=== PATIENT | male | born 1945 | race Caucasian/White ===

== ENCOUNTER 2019-09-19 12:34 | Inpatient (IN) | payer MEDICARE, SELFPAY ==
[2019-09-19] VITALS (15 sets, daily range): BP systolic 103–128; BP diastolic 48–60; PULSE 81–100; RESP 12–21; TEMP 36.5–37.1; O2SAT 94–100; BMI 30.3
[2019-09-19 14:51] LABS: Basophils Percent Auto 0.3 % (0.2-1.2); Eosinophils Absolute Auto 0.1 K/mm3 (0-0.3); Eosinophils Percent Auto 1.2 % (0-4.4); Immature Granulocyte Absolute 0.09 K/mm3 (0.00-0.031); Immature Granulocyte Percent A 0.9 % (0-0.5); Immature Platelet Fraction Pct 2.5 % (0.9-11.2); Lymphocytes Absolute Auto 7.87 K/mm3 (0.9-3.2); Lymphocytes Percent Auto 75.5 % (18.3-44.2); Mean Corpuscular HGB Conc 30.3 g/dl (32-36); Mean Corpuscular Hemoglobin 29.9 pg (26-34); Mean Corpuscular Volume 98.5 fl (80-100); Mean Platelet Volume 10.6 fl (7.4-10.4); Monocytes Absolute Auto 0.5 K/mm3 (0.1-0.6); Monocytes Percent Auto 4.3 % (2.6-8.5); Neutrophils Absolute Auto 1.9 K/mm3 (1.3-6.7); Neutrophils Percent Auto 17.8 % (45.5-73.1); Nucleated Red Blood Cells Absolute Auto 0.1 K/mm3 (0.0-0.012); Nucleated Red Blood Cells Perc 0.6 % (0.0-0.2); Platelet Count Result 55 k/mm3 (150-375); Red Blood Count 2.04 M/mm3 (4.6-6.20); Red Cell Distribution Width 20.5 % (11.5-14.5); White Blood Count 10.4 K/mm3 (4.5-10.0)
[2019-09-19 15:01] LABS: Alanine Aminotransferase 18 U/L (4-50); Albumin Level 4.3 g/dL (3.5-5.1); Alkaline Phosphatase 108 U/L (38-126); Aspartate Amino Transferase 33 U/L (17-59); Bilirubin,Total 0.5 mg/dL (0.2-1.3); Blood Urea Nitrogen 34 mg/dL (9-20); Calcium 9.2 mg/dL (8.4-10.2); Carbon Dioxide 26 mmol/L (22-30); Chloride 96 mmol/L (98-107); Estimated CRCL calculation 46 ml/min; Estimated Glomerular Filt Rate 43; Glucose 87 mg/dL (75-110); Potassium 4.9 mmol/L (3.4-5.0); Prothrombin Time 13.2 Seconds (11.1-14.7); Sodium 136 mmol/L (137-145)
[2019-09-19 15:02] LABS: Partial Thromboplastin Time 23.2 SECONDS (22.3-36.8)
[2019-09-19 15:10] LABS: Hematocrit 20.1 % (42.0-52.0); Hemoglobin 6.1 g/dL (14.0-18.0)
--- NOTE | 2019-09-19 15:27 | ED.RECABL ---
HPI - Recheck/Abnormal Lab/Rx General Chief Complaint: Recheck/Abnormal Lab/Rx Stated Complaint: low blood count Time Seen by Provider: 09/19/19 15:18 Source: patient Mode of arrival: ambulatory Limitations: no limitations History of Present Illness HPI narrative: Pt is a 73 y/o male who presents to the ED, secondary to getting a call from his PCP about his low hemoglobin. Pt states that he saw Dr. Walls, his PCP on Tuesday (5 days ago) where he had an EKG done that was normal. He saw a certified nurses aide that did a doppler and was negative. Pt then had blood drawn yesterday. He has been complaining of SOB for the last 2 months that worsened with exertion. He also reports melena and constipation, but denies ABD pain. Pt states that he has been drinking a lot of milk and he has been eating and drinking normally. complaint: abnormal lab Initial visit (ago): day(s) (yesterday) Initial visit for: other (SOB) Returns today for: called because of abnormal lab/test Description of abnormal result: low hemoglobin Symptoms since prior visit: no new symptoms Context: called for abnormal lab result Associated symptoms: shortness of breath and other (melena, constipation) Related Data Home Medications Medication Instructions Recorded Confirmed allopurinol 300 mg tablet 300 mg PO DAILY 09/11/19 aspirin 81 mg tablet,delayed 81 mg PO DAILY 09/11/19 release indapamide 2.5 mg tablet 2.5 mg PO DAILY 09/11/19 levothyroxine 50 mcg tablet 50 mcg PO DAILY 09/11/19 venlafaxine 150 mg 150 mg PO DAILY 09/11/19 capsule,extended release 24 hr Allergies Allergy/AdvReac Type Severity Reaction Status Date / Time colistin [Coly-Mycin S] Allergy Unknown stated Verified 09/14/19 10:30 allergic hydrocortisone [Coly-Mycin S] Allergy Unknown stated Verified 09/14/19 10:30 allergic neomycin Allergy Unknown possible Verified 09/14/19 10:30 allergy, red eyes and eac edema thonzonium bromide Allergy Unknown stated Verified 09/14/19 10:30 [Coly-Mycin S] allergic Review of Systems Review of Systems: All systems reviewed & are unremarkable except as noted in HPI and below Respiratory: Respiratory: Reports dyspnea Gastrointestinal: Gastrointestinal: Denies abdominal pain, Reports melena and Reports constipation PMFSH Past Medical History Medical History (Updated 09/19/19 @ 18:18 by Leslie Bautista MD) Diabetes mellitus High cholesterol HTN (hypertension) Peripheral neuropathy Surgical History Surgical History (Updated 09/19/19 @ 15:33 by Elver Sr) No significant past surgical history Family History Family History (Updated 09/19/19 @ 18:12 by Margaret Noble RN) Sibling Diabetes mellitus Father Family history of cardiovascular disease Acute myocardial infarction Mother Alzheimer's dementia Social History Social History (Updated 09/19/19 @ 15:34 by Elver Sr) Smoking status: Former smoker Smoking end date: 07/18/96 Alcohol intake: current Exam Const: General: cooperative, no acute distress and alert Nutritional Appearance: well nourished Orientation/consciousness: patient oriented x3 Limitations: no limitations HENMT: Mouth: Yes lip normal and Yes moist mucous membranes Eyes: Conjunctivae: conjunctival abnormality bilateral pallor Pupils: Equal, round and reactive pupils present EOM: EOMs intact bilaterally Resp: Effort & Inspection: normal respiratory effort Auscultation: clear to auscultation bilaterally Cardio: Rate: regular rate Rhythm: regular rhythm Heart sounds: no murmurs Peripheral pulses: dorsalis pedis present bilateral GI: GI Palp: Yes Soft to palpation and No Tenderness to palpation present (GI) Auscultation: normal bowel sounds Skin: General skin exam: normal color and pallor Neuro: General: patient oriented x3 Cognition (Neuro): normal cognition Speech: normal speech Extrem: General: normal to inspection, full ROM and no clubbing,
[2019-09-19 16:16] LABS: Iron 135 ug/dL (49-181)
[2019-09-19 16:26] LABS: Percent Iron Saturation 33 % (20-50)
[2019-09-19] MEDS: TUBING, BLOOD PLUM PUMP TUBING 1 EACH XX (16:26)
[2019-09-19] MEDS: SODIUM CHLORIDE 0.9% IV 250 ML 30 ML IV CONT (16:26)
[2019-09-19 17:06] LABS: Folic Acid > 20.0 ng/mL (2.76->20)
--- NOTE | 2019-09-19 17:59 | ADMGEN ---
This patient, Francis Johnson, was admitted to [facility] Surg Room 333-01. Patient/family oriented to hospital policies and general routines including ID bracelet, bed and alarms, visiting hours, pain management, procedures, bathroom and other care routines, personal items, smoking policy, room service/diet, and visiting hours. Valuables list has been completed. Information on how to activate the Rapid Response Team has been discussed. Patient/Family are encouraged to report perceived risks to care and to ask questions if they do not understand what they are told or what they should do.
--- NOTE | 2019-09-20 00:48 | PM.IMHP ---
H&P: HPI History of Present Illness Chief complaint: Severe Anemia Narrative: Francis Johnson is a 73 year old male was been complaining of shortness breath for at least the last 2 months. His been seen by his primary care doctor and also Cardiology. He had had an echo and it was normal. He also had an EKG which was reported as normal as well. Patient went to his primary care doctor about 5 days ago and had some lab work performed. Patient stated that he has been having some dark stools and he has been drinking lots of milk. He does have a history of having GERD. He had a colonoscopy approximately a year ago. His GI doctor is Dr. Andrade. Patient's H&H was noted to be 6.1 and 20.1. Was typed and screened and given 2 units packed red blood cells. Patient is not on any blood thinners just an aspirin. He has been on a PPI for his GERD. Date of egalgdm98/04/20 Review of Systems Review of Systems: Narrative: The patient is urinating a small stream infrequently every 2 hours. He is having difficulty getting his stream started All systems reviewed & are unremarkable except as noted in HPI and below Constitutional: Constitutional: Reports as per HPI and Reports no additional constitutional complaints Eyes: Eyes: Reports as per HPI and Reports no additional eye complaints ENT: Reports system reviewed and no additional complaints, except as documented and Reports Normal hearing present Cardiovascular: Cardiovascular: Reports no additional cardiovascular complaints Respiratory: Respiratory: Reports no additional respiratory complaints and Reports no additional respiratory complaints Gastrointestinal: Gastrointestinal: Reports as per HPI and Reports no additional gastrointestinal complaints Musculoskeletal: Musculoskeletal: Reports no additional musculoskeletal complaints Integumentary/Breasts: Skin/Breast: Reports system reviewed and no additional complaints, except as docu and Reports as per HPI Neurologic: Reports system reviewed and no additional complaints, except as documented, Reports as per HPI and Reports Normal hearing present Psychiatric: Psychiatric: Reports no additional psychiatric complaints and Reports as per HPI Endocrine: Endocrine: Reports no additional endocrine complaints Hematologic/Lymphatic: Hematologic/Lymphatic: Reports no additional hematologic/lymphatic complaints Allergic/Immunologic: Allergic/Immunologic: Reports no additional allergic/immunologic complaints [facility] Past Medical History Medical History (Updated 09/20/19 @ 01:21 by Aleyda Verma NP) Depression with anxiety Diabetes mellitus High cholesterol HTN (hypertension) Peripheral neuropathy Testicular hypofunction Surgical History Surgical History (Updated 09/19/19 @ 15:33 by Elver Sr) No significant past surgical history Family History Family History Sibling Diabetes mellitus Father Family history of cardiovascular disease Acute myocardial infarction Mother Alzheimer's dementia Social History Social History (Updated 09/20/19 @ 00:56 by Aleyda Verma NP) Social History: The patient is single without any children. The patient retired from the [employer]. The patient's niece is a durable power assistant county attorney for healthcare. He desires to be full code at this time. No alcohol or illicit drugs Smoking packs per day: 2 Smoking cigarettes per day: 40.0 Years smoked: 30 Smoking pack-years: 60.00 Smoking status: Former smoker Tobacco type: cigarettes Smoking end date: 07/18/96 Alcohol intake: never Substance use: never Substance use type: does not use Living arrangements: alone Occupation/Education: retired Gender identity (if verbalized by the patient): Male Spiritual care concerns: No Agree to blood products: Yes Meds Home Medications and Allergies Home Medications Medication Instructions Recorded Confirmed Type simv
[2019-09-20 01:11] LABS: Hematocrit 22.3 % (42.0-52.0); Hemoglobin 7.1 g/dL (14.0-18.0)
[2019-09-20] MEDS: LEVOTHYROXINE SODIUM 50 MCG TABLET PO (05:54)
[2019-09-20 06:00] VITALS: BP 131/57; PULSE 83; RESP 18; TEMP 36.7; O2SAT 94
[2019-09-20 06:20] LABS: Hematocrit 23.7 % (42.0-52.0); Hemoglobin 7.4 g/dL (14.0-18.0)
[2019-09-20 06:35] LABS: Alanine Aminotransferase 17 U/L (4-50); Alkaline Phosphatase 91 U/L (38-126); Aspartate Amino Transferase 33 U/L (17-59); Bilirubin,Total 0.7 mg/dL (0.2-1.3); Blood Urea Nitrogen 28 mg/dL (9-20); Calcium 9.2 mg/dL (8.4-10.2); Carbon Dioxide 27 mmol/L (22-30); Chloride 100 mmol/L (98-107); Estimated CRCL calculation 59 ml/min; Estimated Glomerular Filt Rate 60; Glucose 92 mg/dL (75-110); Sodium 136 mmol/L (137-145)
[2019-09-20] MEDS: VENLAFAXINE HCL XR 75 MG CAP.ER.24H PO (08:27)
[2019-09-20] MEDS: PANTOPRAZOLE SOD SESQUIHYDRATE 20 MG TAB PO (08:27)
[2019-09-20] MEDS: allopurinoL 300 MG TABLET PO (08:27)
[2019-09-20] MEDS: SIMVASTATIN 20 MG TABLET PO (08:28)
[2019-09-20] MEDS: VENLAFAXINE HCL XR 75 MG CAP.ER.24H 150 MG PO (08:28)
[2019-09-20] MEDS: TAMSULOSIN HCL 0.4 MG CAPSULE PO (08:28)
--- NOTE | 2019-09-20 11:21 | WPDGICN ---
Assessment and Plan Additional Plan This is a 73-year-old white male patient I am asked to see because of anemia. Patient followed by Dr. Wlals in the clinical setting. Patient reports fatigue and weakness over the last 2 months. In retrospect he notices perhaps his stools were darkish for the last week. He denies any abdominal pain. No obvious signs of bleeding. He denies nose bleeds, bruises. No obvious blood in his urine or elsewhere. Past medical history is significant for GE reflux disease. In the past he has had an esophageal web dilated. He is chronically on proton pump inhibitor therapy. He very infrequently will notice heartburn. His bowel habits are normal. And considered regular. He reports no recent change in medications. Past medical history is significant for GERD. Hypertension. High cholesterol. Diabetes. Anxiety. Home medications include allopurinol, aspirin, indapamide, levothyroxine, metformin, omeprazole, quinapril, simvastatin, testosterone, venlafaxine, Allergies include: colistin, hydrocortisone, neomycin. Physical exam reveals patient to be alert. He is anicteric. Comfortable at rest. Vital signs stable. HEENT exam unremarkable. He is anicteric. Lungs are clear to auscultation and percussion. Heart is without murmur or extra sounds. Abdominal exam bowel sounds are present soft nontender with no hepatosplenomegaly. Digital external rectal exam normal. No stool is obtained. Laboratory testing reveals on presentation WBC 10.4, hemoglobin 6.1, hematocrit 21. . MCV 98. Platelet dear 55,000. Coagulation profile is normal. Iron 135, TIBC 410, 33% saturation, ferritin 168. LFTs are normal. Impression 1. Profound anemia. 2. Thrombocytopenia. 3. GERD. Appears stable on chronic PPI therapy. Etiology for anemia unclear. Dark stools raise a question of GI blood loss. Stool Hemoccult is pending. Patient has been maintained on PPI therapy. Chronically. No obvious GI bleeding reported. I suspect he may have hematologic problem given profound thrombocytopenia and normal iron studies. I will plan to proceed with colonoscopy an EGD in the a.m.. But additional lab work looking for hematologic process is advised. Stool Hemoccult will be requested if not already done. Patient to be transfused to a stable hemoglobin. GI Consult Note Consult date/time: 09/20/19 11:21 HPI: Francis Johnson is a 73 year old male [facility] Past Medical History Medical History (Updated 09/20/19 @ 01:21 by Aleyda Verma NP) Depression with anxiety Diabetes mellitus High cholesterol HTN (hypertension) Peripheral neuropathy Testicular hypofunction Surgical History Surgical History (Updated 09/19/19 @ 15:33 by Elver Sr) No significant past surgical history Family History Family History Sibling Diabetes mellitus Father Family history of cardiovascular disease Acute myocardial infarction Mother Alzheimer's dementia Social History Social History (Updated 09/20/19 @ 00:56 by Aleyda Verma NP) Social History: The patient is single without any children. The patient retired from the [employer]. The patient's niece is a durable power divorce attorney for healthcare. He desires to be full code at this time. No alcohol or illicit drugs Smoking packs per day: 2 Smoking cigarettes per day: 40.0 Years smoked: 30 Smoking pack-years: 60.00 Smoking status: Former smoker Tobacco type: cigarettes Smoking end date: 07/18/96 Alcohol intake: never Substance use: never Substance use type: does not use Living arrangements: alone Occupation/Education: retired Gender identity (if verbalized by the patient): Male Spiritual care concerns: No Agree to blood products: Yes Meds Home Medications and Allergies Home Medications Medication Instructions Recorded Confirmed Type simvastatin 20 mg tablet 20 mg PO DAILY #90 t
[2019-09-20 11:47] LABS: Hematocrit 25.1 % (42.0-52.0); Hemoglobin 8.1 g/dL (14.0-18.0); Mean Corpuscular HGB Conc 32.3 g/dl (32-36); Mean Corpuscular Hemoglobin 30.3 pg (26-34); Platelet Count Result 50 k/mm3 (150-375); Red Blood Count 2.67 M/mm3 (4.6-6.20); Red Cell Distribution Width 19.2 % (11.5-14.5); White Blood Count 9.9 K/mm3 (4.5-10.0)
[2019-09-20] MEDS: INSULIN ASPART (*BKC) 100 UNITS/ML SUB-Q (12:03)
[2019-09-20 12:09] LABS: Glucose Point of Care 205 (65-105)
[2019-09-20 13:43] LABS: IFOB Positive Control Positive; Immunochemical Fecal Occult Bl Negative (N)
[2019-09-20] MEDS: PEG (High)/E-LYTE SOLN 4,000 ML BTL 4000 ML PO (13:51)
--- NOTE | 2019-09-20 14:41 | PM.IMPN ---
Progress Note: A&P Assessment and Plan (1) Symptomatic anemia: Code(s): D64.9 - Anemia, unspecified Status: Acute Assessment and Plan: Patient had dark stools. Patient is on a PPI. He has seen Dr. Andrade in the past. He said he had a colonoscopy approximately 1 year ago clear. Patient had anemia profile and will check stools for occult blood. Patient received 2 units of packed red blood cells. Patient has been short of breath for at least 2 months. He recently had an echo now found to be negative as was his EKG was within normal limits. Patient stated that he is feeling much better. He was short of breath with exertion. Check H&H every 6 hours. Hold aspirin 09/20/19 14:41 Patient is 73-year-old male with no significant past medical history states he had a colonoscopy about a year ago and was normal, he has been feeling tired and fatigued for last couple of months and had noticed his stool was turning dark last week or 2, does have history of GERD which patient is taking PPI, patient presented emergency depart his hemoglobin was 6.1, denies any abdominal pain nausea or vomiting any raul bleeding, denies any bruising, he has no history of alcohol or smoking. Patient has stool Hemoccult is negative, patient is seen by GI recommending EGD and colonoscopy which is scheduled for tomorrow, (2) Urinary retention: Code(s): R33.9 - Retention of urine, unspecified Status: Acute Assessment and Plan: Urology consult. Start patient on Flomax. (3) Acute renal failure: Code(s): N17.9 - Acute kidney failure, unspecified Status: Acute Assessment and Plan: Hold metformin. Hold quinapril. Repeat BMP tomorrow (4) Essential (primary) hypertension: Code(s): I10 - Essential (primary) hypertension Status: Acute Assessment and Plan: Lisinopril on hold tonight due to acute renal failure. Also patient's blood pressure is on the soft side tonight anyway. (5) Hypothyroidism (acquired): Code(s): E03.9 - Hypothyroidism, unspecified Status: Acute Assessment and Plan: Continue with levothyroxine. Patient stated he just had his left levels checked. (6) Obstructive sleep apnea (adult) (pediatric): Code(s): G47.33 - Obstructive sleep apnea (adult) (pediatric) Status: Chronic Assessment and Plan: The patient has a dental apparatus that he did not bring with him. He has not used a CPAP machine years. (7) Type 2 diabetes mellitus with peripheral neuropathy: Code(s): E11.42 - Type 2 diabetes mellitus with diabetic polyneuropathy Status: Acute Assessment and Plan: Hold metformin due to the acute renal failure. Two Accu-Cheks AC and HS. The patient stated he he recently had A1c drawn within the last couple days. (8) Depression with anxiety: Code(s): F41.8 - Other specified anxiety disorders Status: Chronic Assessment and Plan: Continue with the venlafaxine (9) Thrombocytopenia: Code(s): D69.6 - Thrombocytopenia, unspecified Status: Acute Assessment and Plan: Patient platelet counts are 55,000 patient has no complaints of bruising however he is admitted for GI bleed will continue to monitor, patient will benefit from hematology consult as outpatient Subjective Date/time seen: 09/20/19 14:41 Patient is 73-year-old male with no significant past medical history states he had a colonoscopy about a year ago and was normal, he has been feeling tired and fatigued for last couple of months and had noticed his stool was turning dark last week or 2, does have history of GERD which patient is taking PPI, patient presented emergency depart his hemoglobin was 6.1, denies any abdominal pain nausea or vomiting any raul bleeding, denies any bruising, he has no history of alcohol or smoking. Patient has stool Hemoccult is negative, patient is seen by GI recommending EGD and colonoscopy which is scheduled fo
[2019-09-20 15:02] VITALS: BP 148/70; PULSE 86; RESP 18; TEMP 36.7; O2SAT 98
[2019-09-20 15:26] LABS: Immature Reticulocyte Fraction 26.1 % (3.0-15.9); Reticulocyte Hemoglobin Conten 33.4 pg (28.2-35.7); Reticulocyte Percent 1.86 % (0.7-4.3); Reticulocytes Absolute 0.05 B/L (32.2-175.7)
[2019-09-20 15:47] LABS: Bilirubin,Total 0.5 mg/dL (0.2-1.3); Lactate Dehydrogenase 694 U/L (313-618)
[2019-09-20 15:52] LABS: Transferrin 292 mg/dL (206-381)
[2019-09-20 16:41] LABS: Glucose Point of Care 89 (65-105)
--- NOTE | 2019-09-20 16:55 | WPDURCON ---
Assessment and Plan Assessment and plan (1) BPH loc w urin obs/LUTS: Code(s): N40.1 - Benign prostatic hyperplasia with lower urinary tract symptoms Status: Acute Assessment and Plan: Moderate obstructive and irritable voiding symptoms consistent with BPH. Bladder scan for postvoid residual volume of 200 cc is not an urgent problem but reports enough to warrant medications for BPH. Koul start Flomax and follow throughout the course of this admission. Urology Consult Note HPI Date Seen: 09/20/19 Requesting Physician: Ryan Garcia MD Primary Care Provider: Mckenzie Walls MD Consult Narrative Narrative: Francis Johnson is a 73 year old male admitted to the ER yesterday with shortness of breath and marked hematuria. During the course of admitting evaluation he reported a history of voiding difficulty, prompting urological consultation. Specifically, he reports urinary frequency urgency with nocturia 3-5 times per night in addition to obstructive symptoms of intermittent hesitancy diminished stream and sense of incomplete emptying. His primary care physician is told him he has prostatic enlargement in the past but to his knowledge the patient has not been started on any medicines for BPH. He denies a history of recurring urinary tract infection urolithiasis or hematuria. Review of Systems Cardiovascular: Cardiovascular: Denies chest pain, Denies lightheadedness, Denies palpitations and Denies dyspnea Respiratory: Respiratory: Denies dyspnea and Reports dyspnea on exertion Gastrointestinal: Gastrointestinal: Denies diarrhea, Denies nausea and Denies vomiting Genitourinary: Genitourinary: Denies hematuria, Denies dysuria, Reports urinary frequency, Reports urinary hesitancy and Reports urinary urgency Endocrine: Endocrine: Denies palpitations PMFSH Past Medical History Medical History Depression with anxiety Diabetes mellitus High cholesterol HTN (hypertension) Peripheral neuropathy Testicular hypofunction Surgical History Surgical History No significant past surgical history Family History Family History Sibling Diabetes mellitus Father Family history of cardiovascular disease Acute myocardial infarction Mother Alzheimer's dementia Social History Social History (Updated 09/20/19 @ 00:56 by Aleyda Verma NP) Social History: The patient is single without any children. The patient retired from the [employer]. The patient's niece is a durable power civil attorney for healthcare. He desires to be full code at this time. No alcohol or illicit drugs Smoking packs per day: 2 Smoking cigarettes per day: 40.0 Years smoked: 30 Smoking pack-years: 60.00 Smoking status: Former smoker Tobacco type: cigarettes Smoking end date: 07/18/96 Alcohol intake: never Substance use: never Substance use type: does not use Living arrangements: alone Occupation/Education: retired Gender identity (if verbalized by the patient): Male Spiritual care concerns: No Agree to blood products: Yes Meds Home Medications and Allergies Home Medications Medication Instructions Recorded Confirmed Type simvastatin 20 mg tablet 20 mg PO DAILY #90 tablet 05/29/19 09/19/19 Rx omeprazole 20 mg capsule,delayed 20 mg PO DAILY #90 cap 06/19/19 09/19/19 Rx release metformin 500 mg tablet,extended 1,000 mg PO BID #360 tablet 07/09/19 09/19/19 Rx release 24 hr venlafaxine 75 mg capsule,extended 75 mg PO DAILY #90 cap 07/20/19 09/19/19 Rx release 24 hr testosterone cypionate 200 mg/mL 200 mg IM .COMPLEX #1 ml 08/28/19 09/19/19 Rx intramuscular oil quinapril 20 mg tablet 20 mg PO DAILY #90 tablet 08/31/19 09/19/19 Rx allopurinol 300 mg tablet 300 mg PO DAILY 09/11/19 09/19/19 History aspirin 81 mg tablet,delayed 8
[2019-09-20 18:49] LABS: Hemoglobin 7.1 g/dL (14.0-18.0)
[2019-09-20 22:00] VITALS: BP 123/64; PULSE 91; RESP 16; TEMP 37.1; O2SAT 95
[2019-09-20 22:56] LABS: Glucose Point of Care 105 (65-105)
[2019-09-21] VITALS (7 sets, daily range): BP systolic 104–139; BP diastolic 52–74; PULSE 73–95; RESP 16–20; TEMP 36.1–36.9; O2SAT 97–98
[2019-09-21 01:22] LABS: Hematocrit 22.7 % (42.0-52.0); Hemoglobin 7.2 g/dL (14.0-18.0); Immature Platelet Fraction Pct 2.5 % (0.9-11.2); Mean Corpuscular HGB Conc 31.7 g/dl (32-36); Mean Corpuscular Hemoglobin 29.9 pg (26-34); Mean Corpuscular Volume 94.2 fl (80-100); Mean Platelet Volume 9.7 fl (7.4-10.4); Platelet Count Result 41 k/mm3 (150-375); Red Blood Count 2.41 M/mm3 (4.6-6.20); Red Cell Distribution Width 18.8 % (11.5-14.5); White Blood Count 6.3 K/mm3 (4.5-10.0)
[2019-09-21 06:27] LABS: Hematocrit 22.6 % (42.0-52.0); Hemoglobin 7.2 g/dL (14.0-18.0); Mean Corpuscular HGB Conc 31.9 g/dl (32-36); Mean Corpuscular Volume 94.2 fl (80-100); Mean Platelet Volume 12.4 fl (7.4-10.4); Platelet Count Result 42 k/mm3 (150-375); Red Cell Distribution Width 18.7 % (11.5-14.5); White Blood Count 6.6 K/mm3 (4.5-10.0)
[2019-09-21] MEDS: LEVOTHYROXINE SODIUM 50 MCG TABLET PO (06:38)
[2019-09-21 06:45] LABS: Blood Urea Nitrogen 17 mg/dL (9-20); Calcium 8.6 mg/dL (8.4-10.2); Carbon Dioxide 31 mmol/L (22-30); Chloride 96 mmol/L (98-107); Estimated CRCL calculation 65 ml/min; Estimated Glomerular Filt Rate > 60; Glucose 102 mg/dL (75-110); Potassium 3.6 mmol/L (3.4-5.0); Sodium 136 mmol/L (137-145)
--- NOTE | 2019-09-21 07:21 | WPDUROPN2 ---
Progress Note: A&P Assessment and Plan (1) BPH loc w urin obs/LUTS: Code(s): N40.1 - Benign prostatic hyperplasia with lower urinary tract symptoms Status: Acute Assessment and Plan: On Flomax for BPH - tolerating well. Should continue with planned f/u with us in 3-4 weeks. Creat. back to normal. Subjective Subjective Date/Time Seen: 09/21/19 07:21 No voiding complaints. Tolerated first dose of Flomax well. Review of Systems Cardiovascular: Cardiovascular: Denies chest pain, Denies lightheadedness, Denies palpitations and Denies dyspnea Respiratory: Respiratory: Denies dyspnea Gastrointestinal: Gastrointestinal: Denies diarrhea, Denies nausea and Denies vomiting Genitourinary: Genitourinary: Denies hematuria and Denies dysuria Endocrine: Endocrine: Denies palpitations Exam Const: General: no acute distress Resp: Effort & Inspection: normal respiratory effort GI: Inspection: non-distended GI Palp: No abdominal tenderness and No Guarding due to palpation present (GI) Auscultation: normal bowel sounds Objective Data Vital Signs Vital Signs: Vital Signs - 24 hr 09/20/19 15:02 09/20/19 22:00 Temperature 98.0 F 98.8 F Pulse Rate 86 91 Respiratory Rate 18 16 Blood Pressure 148/70 H 123/64 Pulse Oximetry 98 95 Intake/Output Intake/Output: Intake & Output 09/18/19 09/19/19 09/20/19 09/21/19 23:59 23:59 23:59 23:59 Intake Total 863 1820 Output Total 1200 Balance 863 620 Meds/Results Medications: Active Medications Generic Name Dose Route Start Last Admin Trade Name Freq PRN Reason Stop Dose Admin Allopurinol 300 mg 09/20/19 08:00 09/20/19 08:27 Zyloprim PO 300 mg DAILY@0800 ERYN Administration Dextrose 12.5 gm 09/20/19 00:46 Dextrose 50% Syringe IV PUSH PRN PRN Hypoglycemia Protocol Glucagon 1 mg 09/20/19 00:46 Glucagon For Inj IM PRN PRN Hypoglycemia Protocol Glucose 15 gm 09/20/19 00:46 Glutose 15 PO PRN PRN Hypoglycemia Protocol Dextrose 1,000 mls @ 100 mls/hr 09/20/19 00:46 Dextrose 5% 1,000 Ml IVPB PRN PRN Hypoglycemia Protocol Insulin Aspart 2 - 5 units 09/20/19 08:00 09/20/19 17:22 Novolog SUB-Q Not Given TIDWM [facility] Protocol Levothyroxine Sodium 50 mcg 09/20/19 06:30 09/21/19 06:38 Synthroid PO 50 mcg DAILY@0630 ERYN Administration Pantoprazole Sodium 20 mg 09/20/19 09:00 09/20/19 08:27 Protonix PO 10/20/19 09:01 20 mg DAILY ERYN Administration Simvastatin 20 mg 09/20/19 09:00 09/20/19 08:28 Zocor PO 20 mg DAILY ERYN Administration Tamsulosin HCl 0.4 mg 09/20/19 09:00 09/20/19 08:28 Flomax PO 0.4 mg QAM [facility] Administration Venlafaxine HCl 75 mg 09/20/19 08:00 09/20/19 08:27 Effexor Xr PO 75 mg DAILY@0800 [facility] Administration Venlafaxine HCl 150 mg 09/20/19 08:00 09/20/19 08:28 Effexor Xr PO 150 mg DAILY@0800 ERYN Administration Labs Labs: Laboratory Results - last 24 hr 09/20/19 09/20/19 09/20/19 08:26 11:34 12:02 WBC 9.9 RBC 2.67 L Hgb 8.1 L Hct 25.1 L MCV 94.0 MCH 30.3 MCHC 32.3 RDW 19.2 H Plt Count 50 L MPV 10.0 % Immature Plt Fraction Absolute Retic Percent Retic Immature Retic Fraction Retic Hgb Content Sodium Potassium Chloride Carbon Dioxide BUN Creatinine Estim Creat Clear Calc Estimated GFR Glucose POC Capillary Glucose 205 H Calcium Transferrin Total Bilirubin Direct Bilirubin Lactate Dehydrogenase Stl Occult Blood (IFOB) Negative Indirect Antiglob Test 09/20/19 09/20/19 09/20/19 15:16 15:16 15:16 WBC RBC Hgb Hct MCV MCH MCHC RDW Plt Count MPV % Immature Plt Fraction Absolute Retic 0.05 L Percent Retic 1.86 Immature Retic Fraction 26.1 H Retic Hgb Content 33.4 Sodium
--- NOTE | 2019-09-21 08:58 | WPDANESEPPF ---
Anes - Initial Pre Proc Eval Procedure: Operation Date: 09/21/19 10:00 Proposed Procedures p Esophagogastroduodenoscopy & Colonoscopy - Peter Andrade MD Date/Time: 09/21/19 08:58 Surgeon: Ryan Garcia MD Pre Op Diagnosis: Severe Anemia Patient Data Age: 73 Gender: M Height: 1.8 m Weight: 98.7 kg Last Vital Signs Temp 36.1 C L 09/21/19 06:00 Pulse 95 09/21/19 06:00 Resp 16 09/21/19 06:00 BP 104/74 09/21/19 06:00 Pulse Ox 98 09/21/19 06:00 Allergies Allergy/AdvReac Type Severity Reaction Status Date / Time colistin [Coly-Mycin S] Allergy Unknown stated Verified 09/14/19 10:30 allergic hydrocortisone [Coly-Mycin S] Allergy Unknown stated Verified 09/14/19 10:30 allergic neomycin Allergy Unknown possible Verified 09/14/19 10:30 allergy, red eyes and eac edema thonzonium bromide Allergy Unknown stated Verified 09/14/19 10:30 [Coly-Mycin S] allergic Home Medications Medication Instructions Recorded Confirmed Type simvastatin 20 mg tablet 20 mg PO DAILY #90 tablet 05/29/19 09/19/19 Rx omeprazole 20 mg capsule,delayed 20 mg PO DAILY #90 cap 06/19/19 09/19/19 Rx release metformin 500 mg tablet,extended 1,000 mg PO BID #360 tablet 07/09/19 09/19/19 Rx release 24 hr venlafaxine 75 mg capsule,extended 75 mg PO DAILY #90 cap 07/20/19 09/19/19 Rx release 24 hr testosterone cypionate 200 mg/mL 200 mg IM .COMPLEX #1 ml 08/28/19 09/19/19 Rx intramuscular oil quinapril 20 mg tablet 20 mg PO DAILY #90 tablet 08/31/19 09/19/19 Rx allopurinol 300 mg tablet 300 mg PO DAILY 09/11/19 09/19/19 History aspirin 81 mg tablet,delayed 81 mg PO DAILY 09/11/19 09/19/19 History release indapamide 2.5 mg tablet 2.5 mg PO DAILY 09/11/19 09/19/19 History levothyroxine 50 mcg tablet 50 mcg PO DAILY 09/11/19 09/19/19 History venlafaxine 150 mg 150 mg PO DAILY 09/11/19 09/19/19 History capsule,extended release 24 hr Laboratory Tests 09/20/19 09/20/19 09/20/19 08:26 11:34 12:02 WBC 9.9 K/mm3 K/mm3 (4.5-10.0) RBC 2.67 M/mm3 L M/mm3 (4.6-6.20) Hgb 8.1 g/dL L g/dL (14.0-18.0) Hct 25.1 % L % (42.0-52.0) MCV 94.0 fl fl (80-100) MCH 30.3 pg pg (26-34) MCHC 32.3 g/dl g/dl (32-36) RDW 19.2 % H % (11.5-14.5) Plt Count 50 k/mm3 L k/mm3 (150-375) MPV 10.0 fl fl (7.4-10.4) % Immature Plt Fraction Absolute Retic Percent Retic Immature Retic Fraction Retic Hgb Content Haptoglobin Sodium Potassium Chloride Carbon Dioxide BUN Creatinine Estim Creat Clear Calc Estimated GFR Glucose POC Capillary Glucose 205 mg/dl H mg/dl (65-105) Calcium Transferrin Total Bilirubin Direct Bilirubin Lactate Dehydrogenase Stl Occult Blood (IFOB) Negative (N) Indirect Antiglob Test 09/20/19 09/20/19 09/20/19 15:16 15:16 15:16 WBC RBC Hgb Hct MCV MCH MCHC RDW Plt Count MPV % Immature Plt Fraction Absolute Retic 0.05 B/L L B/L (32.2-175.7) Percent Retic 1.86 % % (0.7-4.3) Immature Retic Fraction 26.1 % H % (3.0-15.9) Retic Hgb Content 33.4 pg pg (28.2-35.7) Haptoglobin Pending Sodium Potassium Chloride Carbon Dioxide BUN Creatinine Estim Creat Clear Calc Estimated GFR Glucose POC Capillary Glucose Calcium Transferrin Total Bilirubin 0.5 mg
[2019-09-21] MEDS: LACTATED RINGERS 1,000 ML 150 ML IV CONT (09:19)
[2019-09-21] MEDS: BENZOCAINE (*SP) 60 ML SPRAY CAN (HURRICAINE) 1 SPRAY MUCOUS MEM (09:37)
[2019-09-21 11:13] LABS: Glucose Point of Care 89 (65-105)
[2019-09-21] MEDS: VENLAFAXINE HCL XR 75 MG CAP.ER.24H PO (11:14)
[2019-09-21] MEDS: TAMSULOSIN HCL 0.4 MG CAPSULE PO (11:15)
[2019-09-21] MEDS: allopurinoL 300 MG TABLET PO (11:15)
[2019-09-21] MEDS: VENLAFAXINE HCL XR 75 MG CAP.ER.24H 150 MG PO (11:15)
[2019-09-21] MEDS: SIMVASTATIN 20 MG TABLET PO (11:15)
[2019-09-21] MEDS: PANTOPRAZOLE SOD SESQUIHYDRATE 20 MG TAB PO (11:15)
--- NOTE | 2019-09-21 16:12 | WPDONCCN ---
Assessment and Plan Assessment and plan (1) Thrombocytopenia: Code(s): D69.6 - Thrombocytopenia, unspecified Status: Acute Assessment and Plan: Etiology ? need outpatient US of spleen Labs outpatient : ABDIAZIZ, HCV (2) Normocytic normochromic anemia: Code(s): D64.9 - Anemia, unspecified Status: Acute Assessment and Plan: Effectively ruled out hemolysis, CKD , and blood loss except the SB 1. He is asymptomatic and stable. Can be discharged to home 2. F/u with me in 1 week 3. I will arrange repeat CBC, HCV, ABDIAZIZ, SPEP, K/l chains, Ig levels next week prior to my visit 4. If all of the outpatient w/u is unrevealing, then I will proceed with BM BX 5. Pt voiced understanding and agree with recs HPI Data of Consult Date/Time: 09/21/19 16:12 Requesting Physician: Ryan Garcia MD Primary Care Provider: Mckenzie Walls MD Consult Narrative Narrative: Francis Johnson is a 73 year old male presents with progressive fatigue and QUINTANILLA x 2 - 4 weeks. He had a routine f/u visit with his PCP, Dr. Walls, and pt expressed these issues. W/u at Dr. Walls's office showed microscopic hematuria and low Hb - 6.1. He was instructed to go to [facility] and was admitted for new onset anemia and TCP. He was transfused with 2 units of PRBC immediately with improvement of his symptoms. Dr. Andrade was consulted for GI eval and Dr. Wang was consulted for hematuria Dr. Wang dx him with BPH and is being treated for this medically with Flomax. Dr. Andrade performed an EGD and Colonoscopy today showing no evidence of bleeding. He found diverticulosis, internal hemorrhoids and nothing else. W/u during this admission failed to reveal a source. The following labs: Ferritin, iron profile both normal, vitamin B12 and folate levels are normal, CMP shows no evidence of renal or hepatic disease. retic count is normal and JOHN is negative. LDH is elevated. No signs of hemolysis No B-type symptoms or GI issues preceding the admission. Review of Systems Review of Systems: All systems reviewed & are unremarkable except as noted in HPI and below Constitutional: Constitutional: Denies anorexia, Reports fatigue, Denies fever(s), Reports malaise, Reports night sweats, Reports snoring, Reports weakness and Denies weight loss Eyes: Eyes: Denies blurry vision ENT: Denies dysphagia, Denies epistaxis, Denies mouth lesions, Denies mouth pain, Denies odynophagia, Denies disequilibrium and Denies sore throat Cardiovascular: Cardiovascular: Denies chest pain, Denies leg edema and Denies dyspnea Respiratory: Respiratory: Denies cough and Reports dyspnea on exertion Gastrointestinal: Gastrointestinal: Denies abdominal pain, Denies constipation, Denies dysphagia, Denies diarrhea, Denies nausea, Denies odynophagia and Denies vomiting Genitourinary: Genitourinary: Denies hematuria and Denies dysuria Musculoskeletal: Musculoskeletal: Denies myalgias, Denies arthralgias and Denies muscle weakness Integumentary/Breasts: Skin/Breast: Denies rash and Denies unusual bruising Neurologic: Denies confusion, Denies disequilibrium and Denies weakness Psychiatric: Psychiatric: Denies anxiety, Denies confusion and Denies depression Endocrine: Endocrine: Reports fatigue Hematologic/Lymphatic: Hematologic/Lymphatic: Denies easy bleeding, Denies easy bruising and Denies lymphadenopathy [facility] Past Medical History Medical History (Updated 09/21/19 @ 16:22 by Saul Melvin DO) Acute renal failure Depression with anxiety Diabetes mellitus Diabetic neuropathy with neurologic complication Essential (primary) hypertension High cholesterol HTN (hypertension) Hypothyroidism (acquired) Idiopathic gout, unspecified site Major depressive disorder, recurrent, unspecified SHIRA (obstructive sleep apnea) Peripheral neuropathy Tachycardia 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
--- NOTE | 2019-09-21 16:23 | PM.DS ---
DS: Diagnosis Admitting Diagnosis Admitting Diagnosis: Anemia, unspecified Discharge Diagnosis (1) Symptomatic anemia: Code(s): D64.9 - Anemia, unspecified Status: Acute Assessment and Plan: Patient had dark stools. Patient is on a PPI. He has seen Dr. Andrade in the past. He said he had a colonoscopy approximately 1 year ago clear. Patient had anemia profile and will check stools for occult blood. Patient received 2 units of packed red blood cells. Patient has been short of breath for at least 2 months. He recently had an echo now found to be negative as was his EKG was within normal limits. Patient stated that he is feeling much better. He was short of breath with exertion. Check H&H every 6 hours. Hold aspirin 09/20/19 14:41 Patient is 73-year-old male with no significant past medical history states he had a colonoscopy about a year ago and was normal, he has been feeling tired and fatigued for last couple of months and had noticed his stool was turning dark last week or 2, does have history of GERD which patient is taking PPI, patient presented emergency depart his hemoglobin was 6.1, denies any abdominal pain nausea or vomiting any raul bleeding, denies any bruising, he has no history of alcohol or smoking. Patient has stool Hemoccult is negative, patient is seen by GI recommending EGD and colonoscopy which is scheduled for tomorrow, (2) Urinary retention: Code(s): R33.9 - Retention of urine, unspecified Status: Acute Assessment and Plan: Urology consult. Start patient on Flomax. (3) Acute renal failure: Code(s): N17.9 - Acute kidney failure, unspecified Status: Acute Assessment and Plan: Hold metformin. Hold quinapril. Repeat BMP tomorrow (4) Essential (primary) hypertension: Code(s): I10 - Essential (primary) hypertension Status: Acute Assessment and Plan: Lisinopril on hold tonight due to acute renal failure. Also patient's blood pressure is on the soft side tonight anyway. (5) Hypothyroidism (acquired): Code(s): E03.9 - Hypothyroidism, unspecified Status: Acute Assessment and Plan: Continue with levothyroxine. Patient stated he just had his left levels checked. (6) Obstructive sleep apnea (adult) (pediatric): Code(s): G47.33 - Obstructive sleep apnea (adult) (pediatric) Status: Chronic Assessment and Plan: The patient has a dental apparatus that he did not bring with him. He has not used a CPAP machine years. (7) Type 2 diabetes mellitus with peripheral neuropathy: Code(s): E11.42 - Type 2 diabetes mellitus with diabetic polyneuropathy Status: Acute Assessment and Plan: Hold metformin due to the acute renal failure. Two Accu-Cheks AC and HS. The patient stated he he recently had A1c drawn within the last couple days. (8) Depression with anxiety: Code(s): F41.8 - Other specified anxiety disorders Status: Chronic Assessment and Plan: Continue with the venlafaxine (9) Thrombocytopenia: Code(s): D69.6 - Thrombocytopenia, unspecified Status: Acute Assessment and Plan: Patient platelet counts are 55,000 patient has no complaints of bruising however he is admitted for GI bleed will continue to monitor, patient will benefit from hematology consult as outpatient DS: Summary Hospital Course Reason for hospitalization: Francis Johnson is a 73 year old male was been complaining of shortness breath for at least the last 2 months. His been seen by his primary care doctor and also Cardiology. He had had an echo and it was normal. He also had an EKG which was reported as normal as well. Patient went to his primary care doctor about 5 days ago and had some lab work performed. Patient stated that he has been having some dark stools and he has been drinking lots of milk. He does have a history of having GERD. He had a colonoscopy approximately a yea
[2019-09-24 19:57] LABS: Haptoglobin 201 mg/dL (43-212)
== END 2019-09-21 16:42 | disposition home or self-care (01) | DRG 812 ==
LOC: ANHED 15:54 → ANH3MEDSUR 17:15
PROVIDERS: Emergency Medicine; Internal Medicine Gastroenterology; Nurse Practitioner; Admitting Provider Internal Medicine; Emergency Provider Emergency Medicine; PCP Family Medicine; Visit Provider Family Medicine
PROC: 0DJ08ZZ Inspection of Upper Intestinal Tract, Via Natural or Artificial Opening Endoscopic (ICD-10-PCS; CPT 43235; principal; 2019-09-21 10:00)
DX: D64.9 Anemia, unspecified (principal); N17.9 Acute kidney failure, unspecified; F41.8 Other specified anxiety disorders; E78.00 Pure hypercholesterolemia, unspecified; K57.30 Diverticulosis of large intestine without perforation or abscess without bleeding; I10 Essential (primary) hypertension; E11.42 Type 2 diabetes mellitus with diabetic polyneuropathy; G47.33 Obstructive sleep apnea (adult) (pediatric); K21.9 Gastro-esophageal reflux disease without esophagitis; D69.6 Thrombocytopenia, unspecified; Z87.891 Personal history of nicotine dependence; R33.9 Retention of urine, unspecified; E03.9 Hypothyroidism, unspecified; N40.0 Benign prostatic hyperplasia without lower urinary tract symptoms; R35.0 Frequency of micturition; R35.1 Nocturia; R39.11 Hesitancy of micturition; N40.1 Benign prostatic hyperplasia with lower urinary tract symptoms; M10.00 Idiopathic gout, unspecified site; K64.8 Other hemorrhoids
CPT/HCPCS: 36415; 36430; 80048; 80053; 82247; 82248; 82274; 82607; 82728; 82746; 83010; 83540; 83550; 83615; 84466; 85014; 85018; 85025; 85027; 85046; 85055; 85610; 85730; 86850; 86900; 86901; 86923; 96360; 96361; 97161; 97165; 99285; A9270; G0378; J1815; J2704; J7050; J7120; P9016

== ENCOUNTER 2019-10-03 07:37 | Outpatient (CLI) | payer MEDICARE, SELFPAY ==
--- NOTE | ~2019-10-03 | US_ITS ---
EXAMINATION: US abdomen complete EXAM DATE: 10/03/2019 08:17 INDICATION: Thrombocytopenia, weakness. TECHNIQUE: Multiple grayscale and Doppler images of the complete abdomen were obtained (by a technolo gist who performed the scan) and subsequently reviewed. There is no prior study for comparison. FINDINGS: The abdominal aorta is normal in caliber. Visualized portion IVC is patent. The pancreatic head a nd body are normal in appearance. The pancreatic tail is not visualized. The liver has normal echogenicity and contour. There are no focal liver lesions identified. There is no evidence of intrahepatic biliary duct dilation. Portal venous flow was seen in the hepatopedal , normal direction and has normal Doppler waveform. Common bile duct measures 3 mm, which is normal. The gallbladder wall is normal in thickness, with ex pected amount of distention. No sonographic evidence of pericholecystic fluid. There is no cholelit hiases. Technologist performing exam reports patient did not demonstrate sonographic Tobar's sign. Please note that this sign is less reliable in patients who have received pain medication. Right kidney: There is normal contour and echogenicity. It measures 9.0 x 3.3 x 5.1 centimeters. T here are no focal renal lesions identified. There is no hydronephrosis. Left kidney: There is normal contour and echogenicity. It measures 12.7 x 5.5 x 6.9 centimeters. T here are no focal renal lesions identified. There is no hydronephrosis. The spleen is severely enlarged at 19 x 9 cm. IMPRESSION: 1. Severe splenomegaly. Reviewed, dictated and finalized at location A. IMPRESSION: 1. Severe splenomegaly.
== END 2019-10-03 07:38 ==
PROVIDERS: PCP Family Medicine; Visit Provider Internal Medicine Medical Oncology
DX: D69.6 Thrombocytopenia, unspecified (principal); R16.1 Splenomegaly, not elsewhere classified
CPT/HCPCS: 76700

== ENCOUNTER 2019-10-11 06:57 | Day surgery (SDC) | payer MEDICARE, SELFPAY ==
[2019-10-10 16:19] VITALS: BMI 31.4
--- NOTE | ~2019-10-11 | BM_ITS ---
EXAMINATION: CCL basic procedure DATE: 10/11/2019 09:06 INDICATION: Anemia and thrombocytopenia TECHNIQUE: A time-out was performed to verify the patient's name, date of , and procedure to b e performed. The procedure including the risks, benefits, and alternatives was discussed with the pat ient. Risks discussed included bleeding and infection. The patient understood the risks and agreed to proceed. The skin overlying the right posterior iliac spine was prepped and draped in usual sterile fashion. Anesthetic was administered with 1% lidocaine subcutaneously. Systemic analgesia was provide d with 50 mcg fentanyl IV. An 11 gauge needle was inserted into the ilium with fluoroscopic guidance. Attempt was made at bone marrow aspiration 3 different levels which produced minimal marrow consiste nt with dry tap. An 8 gauge needle was then inserted into the ilium with fluoroscopic guidance. A cor e bone marrow biopsy was obtained. There were no immediate complications. Fluoroscopy exposure time w as 0.1 minutes. The total number of images was 26. FINDINGS: Real-time fluoroscopy demonstrates a marker overlying the right posterior iliac spine. IMPRESSION: 1. Fluoro-guided bone marrow aspiration yielding a dry tap. 2. Successful fluoro-guided bone marrow core biopsy. Reviewed, dictated and finalized at location A.
[2019-10-11 07:39] LABS: Hematocrit 25.1 % (42.0-52.0); Hemoglobin 7.8 g/dL (14.0-18.0); Immature Platelet Fraction Pct 2.3 % (0.9-11.2); Mean Corpuscular HGB Conc 31.1 g/dl (32-36); Mean Corpuscular Hemoglobin 29.8 pg (26-34); Mean Corpuscular Volume 95.8 fl (80-100); Mean Platelet Volume 12.4 fl (7.4-10.4); Platelet Count Result 51 k/mm3 (150-375); Red Blood Count 2.62 M/mm3 (4.6-6.20); Red Cell Distribution Width 19.4 % (11.5-14.5); White Blood Count 7.6 K/mm3 (4.5-10.0)
[2019-10-11 07:48] VITALS: BP 123/62; PULSE 95; RESP 20; TEMP 37.1; O2SAT 100
[2019-10-11 08:05] LABS: Prothrombin Time 12.8 Seconds (11.1-14.7)
[2019-10-11 09:15] VITALS: BP 118/58; PULSE 100; RESP 18; TEMP 38.2; O2SAT 99
[2019-10-11 09:30] VITALS: BP 102/76; PULSE 95; RESP 16; TEMP 37.7; O2SAT 98
[2019-10-11 09:45] VITALS: BP 113/72; PULSE 72; RESP 15; TEMP 37.8; O2SAT 97
--- NOTE | 2019-10-11 11:27 | SUR.PHASEII ---
0955 d/c instructions given to patient and pts family member, all questions answered, both verbalized understanding, iv d/c'd, right posterior hip dressing remains c/d/i, no hematoma or bleeding noted, no stated pain, pt self ambulated and dressed himself. Pt transported via wc to main entrance where his family member clair drove him home in a private vehicle.
== END 2019-10-11 10:00 | disposition home or self-care (01) ==
PROVIDERS: Radiology Diagnostic Radiology; PCP Family Medicine; Visit Provider Internal Medicine Medical Oncology
DX: C83.30 Diffuse large B-cell lymphoma, unspecified site (principal)
CPT/HCPCS: 36415; 38222; 85027; 85055; 85610; 88305; 88311; 88312; 88313; 88342; 88346; 88364; 88365; J3010; J7040

== ENCOUNTER 2019-10-23 13:10 | Outpatient (CLI) | payer MEDICARE, SELFPAY ==
--- NOTE | ~2019-10-23 | CT_ITS ---
EXAMINATION: CT chest abdomen pelvis w con EXAM DATE: 10/23/2019 13:46 INDICATION: Lymphoma. Initial staging. TECHNIQUE: Spiral CT of the chest, abdomen and pelvis was performed following intravenous injection o f 100 mL Omnipaque 350. Axial, coronal and sagittal images were reviewed. Coronal maximum intensity pixel images of chest reviewed. The dose-length product (DLP) for this examination was 1373.64 mGy- cm. The exposure was tailored according to patient size (auto mA exposure control), and iterative re construction (ASIR) was used as additional dose reduction technique. There is no prior study for com rosa maria. FINDINGS: CHEST: There are pathologically enlarged bilateral axillary and mediastinal lymph nodes, with one of the larger left axillary lymph nodes measuring 2.5 x 2.1 cm. Borderline sized bilateral lower interna l jugular chain lymph nodes. Enlarged right subpectoral lymph node measuring 2.1 x 1.2 cm. There is r ight anterior epicardial mass or proteinaceous fluid collection measuring 4.7 x 2.2 cm. Mild basilar intralobular septal thickening, probably mild interstitial lung disease. Azygos fissure. There are no pleural or pericardial effusions. Tracheobronchial tree is patent. There is no pneumothorax. H eart normal in size. There is mild coronary arterial calcification, arterial sclerosis. ABDOMEN PELVIS: There is retroperitoneal, pelvic, inguinal lymphadenopathy, with one of the largest n odes in the right inguinal region measuring 4.7 x 2.3 cm. Retroperitoneal lymph nodes are only mildly enlarged. There is severe splenomegaly, spleen measuring 19 cm in AP dimension. Liver, pancreas, ad renal glands are unremarkable. Gallbladder is unremarkable. No biliary obstruction. Portal and spl enic veins are patent. Kidneys enhance symmetrically. There is no hydronephrosis. Possible right ne phrolithiasis versus arterial sclerosis. There is some atrophy of the right kidney at the lower pole. The prostate is unremarkable. The bladder is unremarkable. There is moderate scattered arterios clerotic disease. The appendix is normal. The stomach and small bowel are unremarkable. There is expected amount of c olonic stool. No free intraperitoneal gas. Moderate thoracolumbar spondylosis. There are no osteo blastic or osteolytic lesions identified. IMPRESSION: 1. Bilateral axillary, mediastinal, retroperitoneal, pelvic, inguinal lymphadenopathy. 2. Splenomegaly. 3. Right anterior epicardial mass which could be lymph node, or less likely proteinaceous epicardial cyst. 4. Chronic findings. Reviewed, dictated and finalized at location B. IMPRESSION: 1. Bilateral axillary, mediastinal, retroperitoneal, pelvic, inguinal lymphade nopathy. 2. Splenomegaly. 3. Right anterior epicardial mass which could be lymph node, or less likely pr oteinaceous epicardial cyst. 4. Chronic findings.
[2019-10-23 13:28] LABS: Estimated Glomerular Filt Rate 54
== END 2019-10-23 13:11 ==
PROVIDERS: PCP Family Medicine; Visit Provider Internal Medicine Medical Oncology
DX: C85.10 Unspecified B-cell lymphoma, unspecified site (principal); R16.1 Splenomegaly, not elsewhere classified
CPT/HCPCS: 36415; 71260; 74177; Q9967

== ENCOUNTER 2019-11-23 08:01 | Outpatient (CLI) | payer MEDICARE, SELFPAY ==
[2019-11-23 09:55] LABS: IFOB Positive Control Positive; Immunochemical Fecal Occult Bl Positive (N)
== END 2019-11-23 08:02 | disposition home or self-care (01) ==
PROVIDERS: PCP Family Medicine; Visit Provider Internal Medicine Medical Oncology
DX: D64.9 Anemia, unspecified (principal)
CPT/HCPCS: 82274

== ENCOUNTER 2019-11-23 08:08 | Outpatient (RCR) | payer MEDICARE, SELFPAY ==
[2019-10-03 08:52] LABS: Hematocrit 20.9 % (42.0-52.0); Hemoglobin 6.4 g/dL (14.0-18.0)
[2019-10-03 10:40] VITALS: BP 102/54; PULSE 88; RESP 14; TEMP 36.7; O2SAT 98
[2019-10-03 10:55] VITALS: BP 102/58; PULSE 88; RESP 14; TEMP 38; O2SAT 96
[2019-10-03 11:04] VITALS: BP 102/58; PULSE 92; RESP 12; TEMP 38.6; O2SAT 98
[2019-10-03] MEDS: ACETAMINOPHEN 500 MG TABLET 1000 MG PO (11:37)
[2019-10-03] MEDS: methylPREDNISolone SOD SUCC 40 MG VIAL IV PUSH (11:37)
[2019-10-03 12:00] VITALS: BP 106/65; PULSE 90; RESP 14; TEMP 38.1; O2SAT 98
[2019-10-03 12:55] VITALS: BP 113/68; PULSE 84; RESP 15; TEMP 36.3; O2SAT 95
[2019-10-03 13:55] VITALS: BP 130/69; PULSE 84; RESP 14; TEMP 36.3; O2SAT 96
[2019-10-03 15:16] LABS: Total Bilirubin Imm Post TxRxn 0.6 mg/dL (0.2-1.3)
[2019-10-03 18:48] LABS: TXRXN Occult Blood Urine Immed Negative; TXRXN RBC Urine Immediate 0-2 /hpf (0-2)
--- NOTE | 2019-10-03 20:14 | PC.NURSE ---
10/03/19: 2005:PATIENT DISCHARGED TO HOME VIA AMBULATION. IV REMOVED FROM LT FOREARM, SHEATH INTACT, NO HEMATOMA OR BLEEDING NOTED, DRESSING APPLIED. DISCHARGE INSTRUCTIONS GIVEN AND VERBALIZED AN UNDERSTANDING OF INSTRUCTIONS. BLOOD AND URINE SAMPLE SENT TO LAB FOR TESTING FOR BLOOD TRANSFUSION REACTION.
[2019-10-03 20:25] LABS: Total Bilirubin 5hr Post TX RX 0.4 mg/dL (0.2-1.3)
[2019-10-18 13:12] LABS: Hemoglobin 6.4 g/dL (14.0-18.0)
[2019-10-18 13:13] LABS: Hematocrit 20.4 % (42.0-52.0)
[2019-10-19 07:50] VITALS: BP 104/55; PULSE 98; RESP 14; TEMP 37.2; O2SAT 96
[2019-10-19 08:05] VITALS: BP 118/65; PULSE 89; RESP 14; TEMP 37.2; O2SAT 96
[2019-10-19 09:05] VITALS: BP 104/60; PULSE 90; RESP 15; TEMP 37.2; O2SAT 97
[2019-10-19 10:05] VITALS: BP 106/59; PULSE 80; RESP 16; TEMP 37.1; O2SAT 97
[2019-10-19 10:26] VITALS: BP 109/58; PULSE 85; RESP 18; TEMP 37.1; O2SAT 97
[2019-11-05] VITALS (10 sets, daily range): BP systolic 103–119; BP diastolic 48–71; PULSE 84–94; RESP 14–15; TEMP 36.9–37.6; O2SAT 97–100
[2019-11-05 10:47] LABS: Mean Corpuscular HGB Conc 33.5 g/dl (32-36); Mean Corpuscular Hemoglobin 30.8 pg (26-34); Mean Corpuscular Volume 91.9 fl (80-100); Mean Platelet Volume 9.1 fl (7.4-10.4); Platelet Count Result 55 k/mm3 (150-375); Red Blood Count 1.85 M/mm3 (4.6-6.20)
[2019-11-05 10:48] LABS: Hemoglobin 5.7 g/dL (14.0-18.0)
[2019-11-16] VITALS (8 sets, daily range): BP systolic 104–128; BP diastolic 51–73; PULSE 60–92; RESP 12–16; TEMP 36.8–37.6; O2SAT 97–100
[2019-11-16 09:32] LABS: Hemoglobin 5.7 g/dL (14.0-18.0)
[2019-11-16 09:33] LABS: Hematocrit 16.9 % (42.0-52.0)
[2019-11-16] MEDS: ACETAMINOPHEN 325 MG TABLET 650 MG PO (10:17)
--- NOTE | 2019-11-16 17:26 | PC.NURSE ---
1655-pt given D/C orders and instructions. Questions answered and verbalized understanding. Pt ambulated per request to waiting vehicle. No distress noted or verbalized at the time of departure.
[2019-11-23] VITALS (9 sets, daily range): BP systolic 111–128; BP diastolic 51–62; PULSE 79–88; RESP 16; TEMP 36.7–37.1; O2SAT 99–100
[2019-11-23] MEDS: ACETAMINOPHEN 325 MG TABLET 650 MG PO (08:40)
[2019-11-23 09:15] LABS: Hematocrit 17.6 % (42.0-52.0); Hemoglobin 5.9 g/dL (14.0-18.0)
[2019-11-23] MEDS: SODIUM CHLORIDE 0.9% IV 250 ML 30 ML IV CONT (09:40)
== END 2020-01-01 23:59 | disposition home or self-care (01) ==
LOC: ANHCPCTRAN 08:08
PROVIDERS: PCP Family Medicine; Visit Provider Internal Medicine Medical Oncology
DX: D64.9 Anemia, unspecified (principal); C85.10 Unspecified B-cell lymphoma, unspecified site
CPT/HCPCS: 36415; 36430; 81001; 82247; 82274; 85014; 85018; 85027; 86850; 86900; 86901; 86923; A9270; J1200; J2920; J7050; P9016

== ENCOUNTER 2020-04-10 08:37 | Outpatient (CLI) | payer MEDICARE, SELFPAY ==
--- NOTE | ~2020-04-10 | CT_ITS ---
EXAMINATION: CT chest abdomen pelvis w con EXAM DATE: 04/10/2020 09:24 INDICATION: Lymphoma restaging. TECHNIQUE: Spiral CT of the chest, abdomen and pelvis was performed following intravenous injection o f 100 mL Omnipaque 350. Axial, coronal and sagittal images were reviewed. Coronal maximum intensity pixel images of chest reviewed. The dose-length product (DLP) for this examination was 1351.64 mGy- cm. The exposure was tailored according to patient size (auto mA exposure control), and iterative re construction (ASIR) was used as additional dose reduction technique. There is no prior study for taty crane. FINDINGS: CHEST: Previously seen axillary and mediastinal lymphadenopathy has resolved. Azygos accessory fissur e. Some dependent linear atelectasis. There are no pleural or pericardial effusions. Tracheobronch ial tree is patent. There is no mediastinal, hilar or axillary lymphadenopathy. There is no pneum othorax. Heart normal in size. There is moderate coronary arterial calcification, arterial sclero sis. ABDOMEN PELVIS: Largest lymph node is in the left inguinal region measuring 1.6 x 1.3 cm. This lymph node was previously 3.4 x 2.8 cm. This is substantial interval decrease in size. On prior study there were numerous pathologically enlarged pelvic, retroperitoneal lymph nodes which have normalized in s ize on this exam. The liver, spleen, adrenal glands and pancreas are unremarkable. Gallbladder is u nremarkable. No biliary obstruction. Portal and splenic veins are patent. Kidneys enhance symmetri natali. There is no hydronephrosis. There is scarring at the lower pole of the right kidney from prio r infection or infarction. There is mild prostatomegaly. The bladder is unremarkable. There is mode rate scattered arteriosclerotic disease. The appendix is normal. The stomach and small bowel are unremarkable. There is mild scattered coloni c diverticulosis. There is no adjacent inflammatory change to suggest diverticulitis. Moderate amou nt of colonic stool. No free intraperitoneal gas. IMPRESSION: 1. Significant response to treatment with interval normalization of almost all the previously seen th oracic abdominal and pelvic lymph nodes. One left inguinal lymph node still mildly enlarged, but with substantial improvement. 2. Resolution of previously seen right anterior epicardial mass probably lymph node with response. 3. Interval normalization of spleen size. Reviewed, dictated and finalized at location B. IMPRESSION: 1. Significant response to treatment with interval normalization of almost all the previously seen thoracic abdominal and pelvic lymph nodes. One left inguina l lymph node still mildly enlarged, but with substantial improvement. 2. Resolution of previously seen right anterior epicardial mass probably lymph node with response. 3. Interval normalization of spleen size.
[2020-04-10 09:14] LABS: Estimated Glomerular Filt Rate > 60
== END 2020-04-10 08:38 | disposition home or self-care (01) ==
PROVIDERS: PCP Family Medicine; Visit Provider Internal Medicine Medical Oncology
DX: C83.00 Small cell B-cell lymphoma, unspecified site (principal)
CPT/HCPCS: 71260; 74177; Q9967

== ENCOUNTER 2021-01-16 09:03 | Outpatient (CLI) | payer MEDICARE, SELFPAY ==
--- NOTE | ~2021-01-16 | XR_ITS ---
EXAMINATION: XR chest 2V DATE: 01/16/2021 09:16 INDICATION: Hemoptysis. TECHNIQUE: Frontal and lateral views of the chest were obtained. COMPARISON: Chest CT 04/10/2020 FINDINGS: There is mild atelectasis at the lung bases. No pleural effusion or pneumothorax. The heart size is normal. IMPRESSION: 1. Mild atelectasis at the lung bases. Reviewed, dictated and finalized at location A.
== END 2021-01-16 09:04 | disposition home or self-care (01) ==
PROVIDERS: PCP Family Medicine; Visit Provider Physician Assistant
DX: R04.2 Hemoptysis (principal)
CPT/HCPCS: 71046

== ENCOUNTER 2021-01-26 12:08 | Outpatient (CLI) | payer MEDICARE, SELFPAY ==
--- NOTE | ~2021-01-26 | CT_ITS ---
EXAMINATION: CT chest abdomen wo con DATE: 01/26/2021 12:42 INDICATION: Unexplained weight loss. Hemoptysis. History of non-Hodgkin's lymphoma. TECHNIQUE: Computed tomography (CT) of the chest and abdomen was performed without intravenous contra st. Automated exposure control and iterative reconstruction technique were employed. Exam dose: 1057 .79 mGy-cm total exam DLP. COMPARISON: 01/16/2021 PA and lateral chest 04/10/2020 CT chest abdomen pelvis FINDINGS: CHEST CT: Normal heart size. Coronary artery calcifications. No pericardial or pleural effusion. There is atherosclerotic calcification of the thoracic aorta and great vessels. No thoracic aortic an eurysm. No hilar or mediastinal mass lesion or lymphadenopathy. The thyroid gland appears unremarkable. Azygos lobe, normal variant. There are predominantly peripheral bilateral lower lobe interstitial infiltrates, right greater than left, with a focal area of atelectasis or consolidation in the posterolateral right lower lobe. There is chronic mild discoid scarring at the base of the lingula. ABDOMEN CT: The liver, gallbladder, bile ducts, spleen, pancreas and pancreatic duct are unremarkable. A solitary pancreatic head punctate calcification is noted, which may indicate mild chronic pancreatitis. Normal morphology of the adrenal glands. Nonobstructing 2.5 mm right renal calculus. No left urinary tract calculus is noted. No hydronephrosi s of either kidney is evident. No renal mass lesion is evident on this limited noncontrast examinatio n. There is prominent scarring at the lower pole of the right kidney and volume loss of the right kid satish compared to the left. There is extensive atherosclerotic calcification of the abdominal aorta, superior mesenteric and brennan l arteries as well as iliac arteries. No abdominal aortic aneurysm. No intraperitoneal or retroperitoneal mass lesion or adenopathy or ascites. Normal appendix. There are diverticula of the right colon; no CT evidence of diverticulitis. No bowel obstruction is evident. The sigmoid colon and rectum are not included in this CT chest and abdomen e xamination. Extensive degenerative spurring of the thoracic and lumbar spine. Multilevel degenerative disc diseas e of the lumbar spine with associated mild retrolisthesis at L3-4. No suspicious osteolytic or osteoblastic lesions are noted. IMPRESSION: Bilateral lower lobe predominant peripheral interstitial infiltrates, right greater than left; differential diagnosis includes bibasilar pneumonia, aspiration pneumonitis, atelectasis, usua l interstitial pneumonia Right lower pole renal scarring 2.5 mm nonobstructing right renal calculus Diverticulosis of the right colon Reviewed, dictated and finalized at Location A. Reviewed, dictated and finalized at location B. IMPRESSION: Bilateral lower lobe predominant peripheral interstitial infiltrat es, right greater than left; differential diagnosis includes bibasilar pneumoni a, aspiration pneumonitis, atelectasis, usual interstitial pneumonia Right lower pole renal scarring 2.5 mm nonobstructing right renal calculus Diverticulosis of the right colon
== END 2021-01-26 12:09 | disposition home or self-care (01) ==
LOC: ANHIMG 12:12
PROVIDERS: PCP Family Medicine; Visit Provider Family Medicine
DX: R04.2 Hemoptysis (principal); N20.0 Calculus of kidney; K57.30 Diverticulosis of large intestine without perforation or abscess without bleeding; R91.8 Other nonspecific abnormal finding of lung field
CPT/HCPCS: 71250; 74150

== ENCOUNTER 2021-03-04 09:12 | Outpatient (CLI) | payer MEDICARE, SELFPAY ==
--- NOTE | ~2021-03-04 | XR_ITS ---
MODIFIED ESOPHAGRAM HISTORY: Dysphagia TECHNIQUE: Modified barium esophagram was performed by speech pathologist under radiologist fluorosco pic guidance. This was recorded on tape. The exam was reviewed on 03/04/2021 09:59 CDT. The DAP for this procedure was 0.75 Gycm2. Fluoroscopy time is 1 minute. One fluoroscopic image. FINDINGS: Lateral projection of the cervical spine demonstrates normal alignment. There is normal s wallowing function without penetration or aspiration.. IMPRESSION: 1: Normal swallowing function without penetration or aspiration. 2: Please refer to speech pathologist report for additional detail. Reviewed, dictated and finalized at location A.
--- NOTE | 2021-03-04 10:35 | STOPEVAL ---
Thank you for referring Francis Johnson to [facility].? The patient is scheduled to be seen for therapy? ____x/week for ___ weeks. Please review, sign, date and return this plan of care USMAN. I agree with and certify that the following plan of care is medically necessary. Referring Physician Date Admitting Provider: Attending Provider: Ysabel Soto MD Referring Provider: Saul Melvin, DO *ST Outpatient Evaluation Start: 03/04/21 10:10 Freq: Status: Active Protocol: Document 03/04/21 10:11 [facility] (Rec: 03/04/21 10:35 [facility] [id number]) Therapy Assessment Status Assessment Status Assessment Status Evaluation Outpatient Past Medical History Past Medical History No Past Medical/Surgical History Patient/Family Denies Significant Past Medical/ Surgical History Source of Past Medical History Patient Evaluation Information Problem Subjective Information Patient reports that Query Text:As Reported By Patient/ approximately five months ago Family he had two occasions of coughing up blood. He stated that tests were made and it was determined that he had a sinus infection and medicine at that time cleared up any sinus issues and further loss of blood. He then stated that he was seen by an ENT three weeks ago for examination of the airway and nothing significant was found although a chest x-ray revealed material in both lobes. He stated he was not told he had pneumonia. Patient referred to an Oncologist but did not state why he was seeing an Oncologist. Today the patient denied difficulty swallowing or becoming choked or tickled but stated that occasionally pieces of hamburger become lodged at the base of the throat and he has to use multiple swallows or liquid wash to clear; he reported that he feels that most likely he is not chewing as long as he should on this kind of solid food. Diagnostic Tests Other
== END 2021-03-04 09:13 | disposition home or self-care (01) ==
LOC: ANHIMG 09:14
PROVIDERS: PCP Family Medicine; Referring Provider Internal Medicine Medical Oncology; Visit Provider Internal Medicine Critical Care Medicine
DX: R13.10 Dysphagia, unspecified (principal)
CPT/HCPCS: 92611

== ENCOUNTER 2021-03-24 08:29 | Outpatient (CLI) | payer MEDICARE, SELFPAY ==
--- NOTE | 2021-03-24 08:35 | ECHO_ITS ---
Patient Info Name: Francis Johnson Age: 75 years : 1945 Gender: Male Ht: 71 in Wt: 220 lbs BSA: 2.26 m2 HR: 82 bpm BP: 148 / 82 mmHg Heart Rhythm: Sinus Rhythm Exam Date: 03/24/2021 9:34 AM Exam Location: [facility] Patient Status: Outpatient Admit Date: 03/24/2021 Staff Ordering Physician: Ysabel Soto MD Belting Inspector: Tracy Gayle RDCS Attending Provider: Ysabel Soto MD Exam Type: CA echo doppler color flow Study Info Indications R06.02 - Shortness of breath Complete two-dimensional, color flow and Doppler transthoracic echocardiogram is performed. Summary 1. Complete two-dimensional, color flow and Doppler transthoracic echocardiogram is performed. 2. Left ventricular chamber dimension is normal. 3. Left ventricular systolic function is normal, estimated at 60-65%. 4. The left ventricular diastolic function is grade I diastolic dysfunction. 5. E/e' 9 is minimally elevated. 6. No pulmonary hypertension, estimated pulmonary arterial systolic pressure is 21 mmHg. 7. The aortic root size at the sinus of Valsalva is borderline dilated at 4.1 cm. Left Ventricle E/e' 9 is minimally elevated. Left ventricular chamber dimension is normal. Left ventricular systolic function is normal, estimated at 60-65%. The left ventricular diastolic function is grade I diastolic dysfunction. Right Ventricle Right ventricular chamber dimension is normal. Right ventricular systolic function is normal. Left Atria Left atrial chamber dimension is normal. Right Atria Right atrial chamber dimension is normal. Aortic Valve The aortic valve is probable trileaflet. There is no aortic valve stenosis. There is no aortic valve regurgitation. Pulmonic Valve There is no pulmonic regurgitation. Mitral Valve There is no mitral valve stenosis. There is no mitral valve regurgitation. Tricuspid Valve There is no tricuspid valve regurgitation. No pulmonary hypertension, estimated pulmonary arterial systolic pressure is 21 mmHg. Pericardium/Pleural There is no pericardial effusion. Inferior Vena Cava Normal inferior vena cava with >50% collapse upon inspiration consistent with normal right atrial pressure, 5 mmHg. Aorta The aortic root size at the sinus of Valsalva is borderline dilated at 4.1 cm. Left Ventricular Outflow Tract Name Value Normal LVOT 2D LVOT Diameter 2.0 cm LVOT Doppler LVOT Peak Gradient 3 mmHg LVOT Mean Gradient 2 mmHg LVOT VTI 20 cm LVOT VTI/AV VTI Ratio 0.7 LVOT Stroke Volume 62 ml Pulmonic Valve Name Value Normal RVOT Doppler RVOT Peak Gradient 1 mmHg PV Doppler
--- NOTE | 2021-03-28 20:52 | WPDSIXMINUTE ---
Six Minute Walk Procedure Procedure Performed Pulmonary Stress Test (6 min walk) Six Minute Walk Six Minute Walk: Date of Service: 03/24/2021 Requesting physician: Dr Soto Reason for study: Shortness of breath SIX MINUTE WALK This was conducted per ATS guidelines. This was conducted on room air. The initial saturation is 94% and the pulse is 76. Blood pressure 139/79. The patient walked for 6 minutes without stopping. The lowest saturation was transiently 89% this lasted less than 1 minute. The maximum pulse was 109. The patient walked a distance of 1000 ft/304.8 m without stopping. IMPRESSION: This is a normal 6 minute walk without requirement for supplemental oxygen.
--- NOTE | 2021-03-28 20:58 | WPDPFTINT ---
PFT Procedure Performed PFT Procedure Performed Spirometry with Pre/Post Bronchodilator Plethysmography (Lung Vol) Diffusing Cap (DLCO) Flow Vol Loop PFT Interpretation DOS: 03/28/2021 REQUESTING: Dr Soto REASON FOR TESTING: Shortness of breath PULMONARY FUNCTION TESTS Results are reliable and reproducible. Spirometry: FEV1 99%, 3.14 L. FVC 101%. FEV1/FVC ratio 74% normal. There is no change after bronchodilator administration. Lung volumes: Total lung capacity 94% normal. Residual volume 98%. RV/TLC is 37%, normal. No air trapping. Airway resistance 97% normal. Diffusion: DLCO 80% normal. Flow volume loop: Normal. IMPRESSION: This is a normal pulmonary function test without response to bronchodilator dilator therapy. Normal spirometry, lung volumes and diffusion capacity. Ysabel Soto MD
== END 2021-03-24 08:30 | disposition home or self-care (01) ==
PROVIDERS: PCP Family Medicine; Visit Provider Internal Medicine Critical Care Medicine
DX: R06.02 Shortness of breath (principal); J84.9 Interstitial pulmonary disease, unspecified
CPT/HCPCS: 93306; 94060; 94618; 94726; 94729

== ENCOUNTER → 2021-05-06 04:07 | Outpatient (CLI) | payer MEDICARE, SELFPAY ==
[2021-05-07 17:41] LABS: SARS-CoV-2 RNA PCR Positive
== END ==
PROVIDERS: PCP Family Medicine; Visit Provider Family Medicine
DX: U07.1 COVID-19 (principal)
CPT/HCPCS: C9803; U0003; U0005

== ENCOUNTER 2021-05-12 09:57 | Emergency (ER) | payer MEDICARE, SELFPAY ==
--- NOTE | ~2021-05-12 | XR_ITS ---
EXAMINATION: XR chest 1V portable INDICATION: Fever and bodyaches, COVID 19 TECHNIQUE: Portable AP chest at 1020 COMPARISON: 01/16/2021 FINDINGS: There are patchy opacities of the mid and lower lung zones. No pleural effusion or pneumoth orax is identified. The cardiomediastinal silhouette is normal. IMPRESSION: 1. Patchy opacities of the mid and lower lung zones, consistent with pneumonia. Reviewed, dictated and finalized at location A.
[2021-05-12 10:17] VITALS: BP 147/75; PULSE 88; RESP 20; TEMP 37.4; O2SAT 94
[2021-05-12 10:31] VITALS: RESP 20; O2SAT 94
[2021-05-12 11:04] LABS: Basophils Percent Auto 0.3 % (0.2-1.2); Hematocrit 45.4 % (42.0-52.0); Hemoglobin 15.5 g/dL (14.0-18.0); Immature Granulocyte Absolute 0.02 K/mm3 (0.00-0.031); Immature Granulocyte Percent A 0.5 % (0-0.5); Lymphocytes Absolute Auto 0.39 K/mm3 (0.9-3.2); Lymphocytes Percent Auto 9.9 % (18.3-44.2); Mean Corpuscular HGB Conc 34.1 g/dl (32-36); Mean Corpuscular Hemoglobin 31.6 pg (26-34); Mean Corpuscular Volume 92.7 fl (80-100); Mean Platelet Volume 10.2 fl (7.4-10.4); Monocytes Absolute Auto 0.3 K/mm3 (0.1-0.6); Monocytes Percent Auto 6.4 % (2.6-8.5); Neutrophils Absolute Auto 3.3 K/mm3 (1.3-6.7); Neutrophils Percent Auto 82.9 % (45.5-73.1); Platelet Count Result 161 k/mm3 (150-375); Red Cell Distribution Width 13.2 % (11.5-14.5); White Blood Count 3.9 K/mm3 (4.5-10.0)
[2021-05-12 11:14] LABS: Lactic Acid Reflex 1.8 mmol/L (0.7-2.1)
[2021-05-12 11:15] LABS: Potassium 3.5 mmol/L (3.4-5.0)
[2021-05-12 11:34] LABS: Alanine Aminotransferase 19 U/L (4-50); Alkaline Phosphatase 71 U/L (38-126); Anion Gap 12 mmol/L (8-16); Aspartate Amino Transferase 25 U/L (17-59); Bilirubin,Total 0.3 mg/dL (0.2-1.3); Blood Urea Nitrogen 15 mg/dL (9-20); Calcium 8.7 mg/dL (8.4-10.2); Carbon Dioxide 23 mmol/L (22-30); Chloride 100 mmol/L (98-107); Estimated CRCL calculation 69 ml/min; Estimated Glomerular Filt Rate > 60; Glucose 157 mg/dL (65-110); Sodium 135 mmol/L (137-145)
--- NOTE | 2021-05-12 11:43 | ED.FEVER ---
HPI - Fever General Chief Complaint: Fever Stated Complaint: covid, SWEATS, WT LOSS Time Seen by Provider: 05/12/21 10:13 Source: patient Mode of arrival: ambulatory Limitations: no limitations History of Present Illness HPI Narrative: 75-year-old with a history of diabetes, diabetic neuropathy, hypertension diagnosed with Covid approximately 5 days ago here with complaints of MD elicited complaint: fever Pertinent past history: other (Covid) Onset (ago): day(s) (5) Exacerbating factors: nothing Relieving factors: nothing Associated symptoms: denies other symptoms Treatments prior to arrival fever: none Related Data Home Medications Medication Instructions Recorded Confirmed aspirin 81 mg tablet,delayed 81 mg PO DAILY 09/11/19 03/24/21 release tamsulosin 0.4 mg capsule 0.4 mg PO DAILY 02/19/21 03/24/21 Allergies Allergy/AdvReac Type Severity Reaction Status Date / Time colistin [Coly-Mycin S] Allergy Unknown stated Verified 03/24/21 14:32 allergic hydrocortisone [Coly-Mycin S] Allergy Unknown stated Verified 03/24/21 14:32 allergic neomycin Allergy Unknown possible Verified 03/24/21 14:32 allergy, red eyes and eac edema thonzonium bromide Allergy Unknown stated Verified 03/24/21 14:32 [Coly-Mycin S] allergic Review of Systems Review of Systems: All systems reviewed & are unremarkable except as noted in HPI and below Constitutional: Constitutional: Reports no additional constitutional complaints Eyes: Eyes: Reports no additional eye complaints ENT: Reports system reviewed and no additional complaints, except as documented Cardiovascular: Cardiovascular: Reports no additional cardiovascular complaints Respiratory: Respiratory: Reports cough Gastrointestinal: Gastrointestinal: Reports no additional gastrointestinal complaints Genitourinary: Genitourinary: Reports no additional male genitourinary complaints Musculoskeletal: Musculoskeletal: Reports no additional musculoskeletal complaints Neurologic: Reports system reviewed and no additional complaints, except as documented PMFSH Past Medical History Medical History Acute renal failure Depression with anxiety Diabetes mellitus Diabetic neuropathy with neurologic complication Essential (primary) hypertension High cholesterol HTN (hypertension) Hypothyroidism (acquired) Idiopathic gout, unspecified site Major depressive disorder, recurrent, unspecified SHIRA (obstructive sleep apnea) Peripheral neuropathy Tachycardia 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 The patient retired from the railroad. The patient's niece is a durable power city attorney for healthcare. He desires to be full code at this time. No alcohol or illicit drugs Smoking packs per day: 2 Smoking cigarettes per day: 40.0 Years smoked: 30 Smoking pack-years: 60.00 Tobacco type: cigarettes Smoking end date: 07/18/96 Alcohol intake: never Substance use: never Substance use type: does not use Gender identity (if verbalized by the patient): Male Spiritual care concerns: No Agree to blood products: Yes Exam Narrative: GENERAL: Well-appearing, well-nourished, and in no acute distress. HEAD: Normocephalic, atraumatic. EYES: PERRLA and EOMI. NECK: Supple. CHEST: Clear to auscultation. No respiratory distress. HEART: Regular rate and rhythm. No
[2021-05-12 11:57] VITALS: BP 118/58; PULSE 82; RESP 18; O2SAT 93
== END 2021-05-12 11:58 | disposition home or self-care (01) ==
PROVIDERS: Emergency Provider Family Medicine; PCP Family Medicine
DX: U07.1 COVID-19 (principal); J12.82 Pneumonia due to coronavirus disease 2019; E11.42 Type 2 diabetes mellitus with diabetic polyneuropathy; I10 Essential (primary) hypertension; E78.00 Pure hypercholesterolemia, unspecified; E03.9 Hypothyroidism, unspecified; M10.00 Idiopathic gout, unspecified site; G47.33 Obstructive sleep apnea (adult) (pediatric); F41.8 Other specified anxiety disorders; Z87.891 Personal history of nicotine dependence; Z79.82 Long term (current) use of aspirin; Z79.84 Long term (current) use of oral hypoglycemic drugs
CPT/HCPCS: 36415; 71045; 80053; 83605; 85025; 99283

== ENCOUNTER 2021-05-17 10:58 | Inpatient (IN) | payer MEDICARE, SELFPAY ==
--- NOTE | ~2021-05-17 | US_ITS ---
EXAMINATION: US venous doppler [facility] DATE: 05/20/2021 15:25 INDICATION: Shortness of breath TECHNIQUE: Maciel scale images without and with compression and Doppler images of the bilateral lower e xtremity veins were obtained. COMPARISON: None FINDINGS: The right common femoral vein, profunda femoral vein, femoral vein, popliteal vein, peroneal trunk, p osterior tibial veins, and greater saphenous vein are patent. The left common femoral vein, profunda femoral vein, femoral vein, popliteal vein, peroneal trunk, po sterior tibial veins, and greater saphenous vein are patent. IMPRESSION: 1. Patent bilateral lower extremity veins. No evidence of deep venous thrombosis. Reviewed, dictated and finalized at location B. IMPRESSION: 1. Patent bilateral lower extremity veins. No evidence of deep venous thrombosi s.
--- NOTE | ~2021-05-17 | CT_ITS ---
EXAMINATION: CTA chest PE protocol EXAM DATE: 05/20/2021 10:01 INDICATION: Elevated d. dimer. Shortness of breath. Pneumonia. Pulmonary emboli. TECHNIQUE: Spiral CTA of the chest (pulmonary arteries) was performed with 100 cc Omnipaque 350 intr avenous contrast injection. Images were acquired during the pulmonary arterial phase. Coronal maxi mum intensity projection 3D-reconstructions were created by the technologist on dedicated workstation . Axial, coronal and sagittal reformatted images were reviewed. The dose-length product (DLP) for t his examination was 634.88 mGy-cm. The exposure was tailored according to patient size (auto mA exp osure control), and iterative reconstruction (ASIR) was used as additional dose reduction technique. Correlation is made to noncontrast chest CT 01/26/2021. FINDINGS: Positive for right lower lobe segmental pulmonary emboli in the medial and posterior segmen ts. Positive for left lower lobe posterior segmental pulmonary emboli. Low clot burden. No thoracic a ortic dissection. Moderate amount of bilateral groundglass airspace disease, appearance is consisten t with but not specific for COVID pneumonia, which is most likely given community prevalence. There are no pleural or pericardial effusions. Tracheobronchial tree is patent. There is no mediastinal , hilar or axillary lymphadenopathy. There is no pneumothorax. Heart normal in size. Small to m oderate Upper abdomen is unremarkable. There is moderate thoracic spondylosis without osteoblastic or osteolytic lesions identified. IMPRESSION: 1. Positive for bilateral lower lobe segmental pulmonary emboli, low clot burden. 2. Moderate groundglass airspace disease probably COVID pneumonia. I discussed pulmonary emboli, pneumonia with XENIA Yo at 05/20/2021 10:05 CDT. Reviewed, dictated and finalized at location A. IMPRESSION: 1. Positive for bilateral lower lobe segmental pulmonary emboli, low clot malathi en. 2. Moderate groundglass airspace disease probably COVID pneumonia. I discussed pulmonary emboli, pneumonia with ESTEBAN YoN-C at 1 10:05 CDT.
--- NOTE | ~2021-05-17 | XR_ITS ---
EXAMINATION: XR chest 1V portable EXAM DATE: 05/17/2021 11:26 INDICATION: COVID +, hypoxia. TECHNIQUE: Portable AP frontal chest x-ray was obtained. Comparison is made to prior examination from 05/12/2021. FINDINGS: There is been progression in airspace disease now moderate amount of bilateral opacity. Pro bably COVID pneumonia given history provided. No pneumothorax or pleural effusion. Mild cardiomegaly. There are bony degenerative changes. IMPRESSION: 1. Progression of acute airspace disease probably COVID pneumonia. Reviewed, dictated and finalized at location A.
--- NOTE | ~2021-05-17 | XR_ITS ---
EXAMINATION: XR chest 1V portable DATE: 05/20/2021 06:05 INDICATION: Pneumonia TECHNIQUE: frontal view of the chest was obtained. COMPARISON: Chest radiograph dated 05/17/2021 FINDINGS: No significant interval change in scattered patchy groundglass opacities throughout both lungs. No pl eural effusion or pneumothorax. Calcified nodule projecting over the left hemidiaphragm consistent wi th old granulomatous disease. The cardiomediastinal silhouette is within normal limits for AP techniq ue. IMPRESSION: 1. Unchanged patchy bilateral groundglass opacities consistent with pneumonia. Reviewed, dictated and finalized at location A.
--- NOTE | ~2021-05-17 | XR_ITS ---
EXAMINATION: XR chest 1V portable DATE: 05/23/2021 05:57 INDICATION: Hypoxia TECHNIQUE: frontal view of the chest was obtained. COMPARISON: Chest radiograph and CT dated 05/20/2021 FINDINGS: No significant change in patchy airspace opacities throughout both lungs. No pleural effusion or pneu mothorax. The cardiomediastinal silhouette is normal. IMPRESSION: 1. No significant change in patchy bilateral lung disease which could represent COVID pneumonia. Reviewed, dictated and finalized at location A.
--- NOTE | 2021-05-17 11:02 | ECG_ITS ---
Measurements Intervals [place] Rate: 98 P: 60 WA: 170 QRS: 26 QRSD: 104 T: 31 QT: 339 QTc: 433 Interpretive Statements SINUS RHYTHM POSSIBLE LEFT ATRIAL ENLARGEMENT DELAYED PRECORDIAL R/S TRANSITION BASELINE ARTIFACT- AVF, V1 BORDERLINE ECG Electronically Signed On 05-17-2021 14:59:26 CDT by Carlos Manuel Elena D.O.
[2021-05-17 11:04] VITALS: BP 166/80; PULSE 95; RESP 22; TEMP 36.8; O2SAT 94
--- NOTE | 2021-05-17 11:14 | ED.URI ---
HPI - URI/Sore Throat General Chief Complaint: Upper Respiratory Infection <Marianne Cortez PA-C - Last Filed: 05/17/21 13:36> Stated Complaint: SOB COVID + <TIFFANY Fields Last Filed: 05/17/21 13:36> Time Seen by Provider: 05/17/21 11:00 <TIFFANY Fields Last Filed: 05/17/21 13:36> Source: patient <TIFFANY Fields Last Filed: 05/17/21 13:36> Mode of arrival: ambulatory <TIFFANY Fields Last Filed: 05/17/21 13:36> Limitations: no limitations <TIFFANY Fields Last Filed: 05/17/21 13:36> History of Present Illness HPI Narrative: This is a 75 year old male that presents to the ER for worsening shortness of breath. Reports he was diagnosed with coronavirus on the of this month. He is Covid vaccinated. Reports fever, cough, and congestion. Reports worsening shortness of breath over the last week. He was evaluated in the emergency department about 5 days ago, but was able to be discharged home. Called EMS today for shortness of breath. Noted to be hypoxic and placed on oxygen. Denies chest pain, abdominal pain, vomiting, dysuria, or lower extremity edema. <TIFFANY Fields Last Filed: 05/17/21 13:36> Related Data Home Medications: Home Medications Medication Instructions Recorded Confirmed aspirin 81 mg tablet,delayed 81 mg PO DAILY 09/11/19 03/24/21 release tamsulosin 0.4 mg capsule 0.4 mg PO DAILY 02/19/21 03/24/21 <TIFFANY Fields Last Filed: 05/17/21 13:36> Allergies/Adverse Reactions: Allergies Allergy/AdvReac Type Severity Reaction Status Date / Time colistin [Coly-Mycin S] Allergy Unknown stated Verified 03/24/21 14:32 allergic hydrocortisone [Coly-Mycin S] Allergy Unknown stated Verified 03/24/21 14:32 allergic neomycin Allergy Unknown possible Verified 03/24/21 14:32 allergy, red eyes and eac edema thonzonium bromide Allergy Unknown stated Verified 03/24/21 14:32 [Coly-Mycin S] allergic <Marianne Cortez PA-C - Last Filed: 05/17/21 13:36> Review of Systems Review of Systems: CONSTITUTIONAL: Denies fever CARDIOVASCULAR: Denies chest pain, or edema. RESPIRATORY: Reports cough and dyspnea. GASTROINTESTINAL: Denies abdominal pain, nausea, vomiting GENITOURINARY: Denies dysuria <Marianne Cortez PA-C - Last Filed: 05/17/21 13:36> All systems reviewed & are unremarkable except as noted in HPI and below <Marianne Cortez PA-C - Last Filed: 05/17/21 13:36> [facility] Past Medical History Medical History: Medical History (Updated 05/17/21 @ 14:08 by Vashti Lr PA-C) Depression with anxiety Essential (primary) hypertension Gout Hypothyroidism Mixed hyperlipidemia Obstructive sleep apnea Peripheral neuropathy Type 2 diabetes mellitus with peripheral neuropathy <Marianne Cortez PA-C - Last Filed: 05/17/21 13:36> Surgical History Surgical History: Surgical History (Updated 05/17/21 @ 14:08 by Vashti Lr PA-C) History of bilateral cataract extraction History of colonoscopy with polypectomy (03/2013) <Marianne Cortez PA-C - Last Filed: 05/17/21 13:36> Family History Family History: Family History Sibling Diabetes mellitus Father Family history of cardiovascular disease Acute myocardial infarction Mother Alzheimer's dementia <Marianne Cortez PA-C - Last Filed: 05/17/21 13:36> Social History Social History: Social History Social History: The patient is single without any children. The patient retired from the railroad. The patient's niece is a durable power district attorney for healthcare. He desires to be full code at this time. No alcohol or illicit drugs Smoking packs per day: 2 Smoking cigarettes per day: 40.0 Years smoked: 30 Smoking pack-years: 60.00 Tobacco type: cigarette
[2021-05-17 11:36] LABS: Alveolar/Arterial O2 Gradient 118.1 mmHg; Base Excess ABG 0.1 mEq/l (+/-2.0); Carboxyhemoglobin 0.6 % THb (0-2.0); Fractional Inspired Oxygen 30 %; HCO3 ABG 21.8 mEq/l (22.0-26.0); Methemoglobin ABG 0.4 %THb (0-1.5); Oxygen Content ABG 20.3 %vol (16.0-22.0); Oxyhemoglobin 90.8 % THb (90.0-100.0); PCO2 ABG 28.5 mmHg (35.0-45.0); PO2 ABG 62.3 mmHg (80.0-100.0); PO2 FiO2 Ratio Arterial Blood 2.08 %; Reduced Hemoglobin 8.2 %THb (0-5.0); Total Hemoglobin 15.9 g/dL (12.0-18.0)
[2021-05-17 11:38] LABS: pH ABG 7.502 (7.350-7.450)
[2021-05-17 11:39] LABS: Device NASAL CANNULA; Liters per Minute 2.5 LPM; Site Drawn RIGHT BRACHIAL
[2021-05-17 11:54] LABS: Basophils Percent Auto 0.2 % (0.2-1.2); Hematocrit 43.4 % (42.0-52.0); Hemoglobin 15.5 g/dL (14.0-18.0); Immature Granulocyte Absolute 0.02 K/mm3 (0.00-0.031); Immature Granulocyte Percent A 0.3 % (0-0.5); Lymphocytes Absolute Auto 0.23 K/mm3 (0.9-3.2); Lymphocytes Percent Auto 3.8 % (18.3-44.2); Mean Corpuscular HGB Conc 35.7 g/dl (32-36); Mean Corpuscular Hemoglobin 31.8 pg (26-34); Mean Corpuscular Volume 88.9 fl (80-100); Mean Platelet Volume 10.1 fl (7.4-10.4); Monocytes Absolute Auto 0.2 K/mm3 (0.1-0.6); Monocytes Percent Auto 3.2 % (2.6-8.5); Neutrophils Absolute Auto 5.6 K/mm3 (1.3-6.7); Neutrophils Percent Auto 92.5 % (45.5-73.1); Platelet Count Result 240 k/mm3 (150-375); Red Blood Count 4.88 M/mm3 (4.6-6.20); Red Cell Distribution Width 13.1 % (11.5-14.5)
[2021-05-17 12:06] LABS: Alanine Aminotransferase 19 U/L (4-50); Albumin Level 3.4 g/dL (3.5-5.1); Alkaline Phosphatase 75 U/L (38-126); Anion Gap 11 mmol/L (8-16); Aspartate Amino Transferase 29 U/L (17-59); Bilirubin,Total 0.6 mg/dL (0.2-1.3); Blood Urea Nitrogen 14 mg/dL (9-20); Calcium 8.5 mg/dL (8.4-10.2); Carbon Dioxide 24 mmol/L (22-30); Chloride 100 mmol/L (98-107); Estimated CRCL calculation 101 ml/min; Estimated Glomerular Filt Rate > 60; Glucose 128 mg/dL (65-110); Lactate Dehydrogenase 770 U/L (313-618); Potassium 3.8 mmol/L (3.4-5.0); Sodium 135 mmol/L (137-145)
[2021-05-17 12:12] LABS: Partial Thromboplastin Time 30.2 SECONDS (22.3-36.8)
[2021-05-17 12:26] LABS: Procalcitonin 0.1 ng/mL
[2021-05-17 12:28] LABS: INR 1.1; Prothrombin Time 14.4 Seconds (11.1-14.7)
[2021-05-17 12:31] LABS: D Dimer 0.72 ug/mL (<0.48)
[2021-05-17 13:00] VITALS: BP 141/86; PULSE 85; RESP 18; O2SAT 96
[2021-05-17] MEDS: DEXAMETHASONE SOD PHOS INJ 4 MG/ML VIAL 6 MG IV PUSH (13:37)
--- NOTE | 2021-05-17 14:00 | PM.IMHP ---
H&P: HPI History of Present Illness Date/Time: 05/17/21 14:00 Chief Complaint: Weakness and shortness of breath. Narrative: This is a 75-year-old male with history of hypertension, hyperlipidemia, diabetes, hypothyroidism, gastroesophageal reflux disease, sleep apnea, and benign prostatic hyperplasia who presented to the emergency department earlier today via EMS from home for evaluation of weakness and shortness of breath. He tested positive for COVID 19 on 05/06/2021 after having a couple days of symptoms to include fever, chills, aches, decreased appetite, nausea, and sinus congestion. He was seen in the emergency department on 05/12/2021 with for evaluation of ongoing fevers and a chest x-ray at that time showed patchy opacities of the mid and lower lung zones and he was discharged home with supportive care; he had no oxygen requirement at that time. Unfortunately he continues to feel unwell with poor oral intake and progressive weakness. He also endorses increasing shortness of breath over the last 5 days and on EMS arrival his SpO2 was 88% on room air. Chest x-ray today showed progression of acute airspace disease due to COVID pneumonia and he is being admitted in this setting. He is feeling a bit better now that he is on oxygen. He denies chest pain pleuritic pain. No vomiting or diarrhea. He received the [employer] COVID vaccination in December 2020. Review of Systems Review of Systems: Twelve systems were reviewed. Fever, chills, and sweats as detailed above. He has been taking acetaminophen at home as well as some [id number] sinus medications with perhaps a bit of benefit. No anosmia or dysgeusia. No orthopnea, PND, or lower extremity edema. He had some loose stools earlier on but that has improved. Except as documented, all other systems were reviewed and are negative. [facility] Past Medical History Medical History Depression with anxiety Essential (primary) hypertension Gout Hypothyroidism Mixed hyperlipidemia Obstructive sleep apnea Peripheral neuropathy Type 2 diabetes mellitus with peripheral neuropathy Surgical History Surgical History History of bilateral cataract extraction History of colonoscopy with polypectomy (03/2013) Family History Family History Sibling Diabetes mellitus Father Family history of cardiovascular disease Acute myocardial infarction Mother Alzheimer's dementia Social History Social History (Updated 05/17/21 @ 20:15 by Vashti Lr PA-C) Social History: Surrogate decision maker: Moni Theodore. Code status: Full code. Smoking packs per day: 2 Smoking cigarettes per day: 40.0 Years smoked: 35 Smoking pack-years: 70.00 Smoking status: Former smoker Tobacco type: cigarettes Smoking end date: 07/18/96 Alcohol intake: former Substance use: never Substance use type: does not use Additional living arrangements comments: The patient lives in his own home in [place]. He is single, no children. Additional occupation/education comments: Retired railroad. Spiritual care concerns: No Agree to blood products: Yes Meds Home Medications and Allergies Home Medications Medication Instructions Recorded Confirmed Type simvastatin 20 mg tablet 20 mg PO DAILY #90 tablet 05/27/20 05/17/21 Rx metformin 500 mg tablet,extended 1,000 mg PO BID #360 tablet 06/23/20 05/17/21 Rx release 24 hr omeprazole 20 mg capsule,delayed 20 mg PO DAILY #90 cap 07/08/20 05/17/21 Rx release levothyroxine 50 mcg tablet See Rx Instructions .ROUTE 01/09/21 05/17/21 Rx .COMPLEX #90 tablet venlafaxine 150 mg See Rx Instructions .ROUTE 02/09/21 05/17/21 Rx capsule,extended release 24 hr .COMPLEX #90 cap venlafaxine 75 mg capsule,extended See Rx Instructions .ROUTE 02/09/21 05/17/21 Rx relea
[2021-05-17 15:30] VITALS: BP 153/69; PULSE 89; RESP 18; TEMP 37.2; O2SAT 92
[2021-05-17 16:11] VITALS: BMI 27.1
--- NOTE | 2021-05-17 16:19 | ADMGEN ---
This patient, Francis Johnson, was admitted to [facility] Room 312-01. Patient/family oriented to hospital policies and general routines including ID bracelet, bed and alarms, visiting hours, pain management, procedures, bathroom and other care routines, personal items, smoking policy, room service/diet, and visiting hours. Information on how to activate the Rapid Response Team has been discussed. Patient/Family are encouraged to report perceived risks to care and to ask questions if they do not understand what they are told or what they should do.
[2021-05-17 16:42] LABS: Hemoglobin A1C 7.1 % (<5.7)
[2021-05-17 20:00] VITALS: O2SAT 92
[2021-05-17 20:04] LABS: CRP > 9.0 mg/dL (<1.0)
[2021-05-17 21:27] VITALS: BP 118/71; PULSE 82; RESP 18; TEMP 36.1; O2SAT 90
[2021-05-17] MEDS: REMDESIVIR 200 MG/NS 250 ML 200 MG/250 ML BAG 250 MG IVPB (21:41)
[2021-05-17 21:54] LABS: Glucose Point of Care 186 mg/dl (65-105)
[2021-05-17] MEDS: guaiFENesin 12 HR 600 MG TABCR PO (23:39)
[2021-05-18] VITALS (18 sets, daily range): BP systolic 135–142; BP diastolic 63–83; PULSE 64–86; RESP 16–22; TEMP 35.9–36.5; O2SAT 73–94; BMI 27.1
--- NOTE | 2021-05-18 05:28 | PC.NURSE ---
PHOTOCOPYING EQUIPMENT REPAIRER went to check patients 0400 VS and patients 02 sat was at 75% on 2L. Patient gradually increased to 15L NC to catch up and eventually hit 95%. Patient stated he all of a sudden started breathing more out of his mouth but didn't feel anything different. I gently decreased him to 6L high flow NC and he maintained above 90%. Placed him on continuous pulse ox to monitor further. Called MD who ordered scheduled inhaler use and agreed to have pt on telemetry with pulse 02.
[2021-05-18 05:51] LABS: Hematocrit 45.3 % (42.0-52.0); Hemoglobin 15.6 g/dL (14.0-18.0); Mean Corpuscular HGB Conc 34.4 g/dl (32-36); Mean Corpuscular Hemoglobin 32.3 pg (26-34); Mean Corpuscular Volume 93.8 fl (80-100); Mean Platelet Volume 10.1 fl (7.4-10.4); Platelet Count Result 235 k/mm3 (150-375); Red Blood Count 4.83 M/mm3 (4.6-6.20); Red Cell Distribution Width 13.2 % (11.5-14.5); White Blood Count 6.6 K/mm3 (4.5-10.0)
[2021-05-18 05:58] LABS: Potassium 4.5 mmol/L (3.4-5.0)
[2021-05-18 05:59] LABS: Prothrombin Time 13.5 Seconds (11.1-14.7)
[2021-05-18] MEDS: LEVOTHYROXINE SODIUM 50 MCG TABLET BY MOUTH (06:28)
[2021-05-18 06:29] LABS: Alanine Aminotransferase 28 U/L (4-50); Albumin Level 3.5 g/dL (3.5-5.1); Alkaline Phosphatase 70 U/L (38-126); Anion Gap 5 mmol/L (8-16); Aspartate Amino Transferase 44 U/L (17-59); Bilirubin,Total 0.6 mg/dL (0.2-1.3); Blood Urea Nitrogen 17 mg/dL (9-20); CRP 13.2 mg/dL (<1.0); Calcium 8.7 mg/dL (8.4-10.2); Carbon Dioxide 32 mmol/L (22-30); Chloride 99 mmol/L (98-107); Estimated CRCL calculation 88 ml/min; Estimated Glomerular Filt Rate > 60; Glucose 142 mg/dL (65-110); Lactate Dehydrogenase 881 U/L (313-618); Magnesium 1.9 mg/dL (1.6-2.3); Sodium 136 mmol/L (137-145)
[2021-05-18 08:27] LABS: Glucose Point of Care 120 mg/dl (65-105)
--- NOTE | 2021-05-18 09:10 | PM.IMPN ---
Progress Note: A&P Assessment and Plan (1) Acute respiratory failure with hypoxia: Code(s): J96.01 - Acute respiratory failure with hypoxia Status: Acute Assessment and Plan: presented to the emergency department for increasing weakness and shortness of breath Tested positive for COVID 19 on 04/26/2021 Vaccinated: [employer] December 2020. Chest x-ray shows: worsening pneumonia dexamethasone and remdesivir Inflammatory markers: Ferritin 765, LDH 881, CRP 13.2, Dimer 0.72 Will order tocilizumab due to patient increased oxygen demand Continue p.r.n albuterol MDI pulmonary toilet: IS/Cornette Encourage prone positioning (2) Pneumonia due to 2019 novel coronavirus: Code(s): U07.1 - COVID-19; J12.82 - Pneumonia due to coronavirus disease 2019 Status: Acute Assessment and Plan: See above (3) Essential (primary) hypertension: Code(s): I10 - Essential (primary) hypertension Status: Acute Assessment and Plan: Current BP 137/70 Amlodipine 5mg PO Daily, lisinopril 20mg PO Daily trend BP adjust medications as indicated (4) Type 2 diabetes mellitus with peripheral neuropathy: Code(s): E11.42 - Type 2 diabetes mellitus with diabetic polyneuropathy Status: Acute Assessment and Plan: Current glucose 142 trend labs Adjust medications as needed Trend labs A1c 7.1 Initiate sliding scale insulin Accu-Cheks hypoglycemic protocol. (5) Obstructive sleep apnea: Code(s): G47.33 - Obstructive sleep apnea (adult) (pediatric) Status: Acute Assessment and Plan: Continue home therapy when able (6) Mixed hyperlipidemia: Code(s): E78.2 - Mixed hyperlipidemia Status: Acute Assessment and Plan: Continue simvastatin 20mg PO Daily (7) Hypothyroidism: Code(s): E03.9 - Hypothyroidism, unspecified Status: Acute Assessment and Plan: Continue home levothyroxine 50mcg PO daily TSH 1.710 (8) BPH (benign prostatic hyperplasia): Code(s): N40.0 - Benign prostatic hyperplasia without lower urinary tract symptoms Status: Acute Assessment and Plan: Continue home tamsulosin Consider post residual void to assess for fully empting Time Spent With Patient Time: Weaning oxygen and assessment Time with patient: Greater than 35 minutes Subjective Date/time seen: 05/18/21 0910 Interval history: Date/Time: 05/17/21 14:00 Narrative: This is a 75-year-old male with history of hypertension, hyperlipidemia, diabetes, hypothyroidism, gastroesophageal reflux disease, sleep apnea, and benign prostatic hyperplasia who presented to the emergency department earlier today via EMS from home for evaluation of weakness and shortness of breath. He tested positive for COVID 19 on 05/06/2021 after having a couple days of symptoms to include fever, chills, aches, decreased appetite, nausea, and sinus congestion. He was seen in the emergency department on 05/12/2021 with for evaluation of ongoing fevers and a chest x-ray at that time showed patchy opacities of the mid and lower lung zones and he was discharged home with supportive care; he had no oxygen requirement at that time. Unfortunately he continues to feel unwell with poor oral intake and progressive weakness. He also endorses increasing shortness of breath over the last 5 days and on EMS arrival his SpO2 was 88% on room air. Chest x-ray today showed progression of acute airspace disease due to COVID pneumonia and he is being admitted in this setting. He is feeling a bit better now that he is on oxygen. He denies chest pain pleuritic pain. No vomiting or diarrhea. He received the [employer] COVID vaccination in December 2020. Date/Time seen: 05/18/21 0910 Patient states that he is doing okay today. He is still complaining of shortness of breath with exertion. He also state
--- NOTE | 2021-05-18 09:10 | P.PNIM_ITS ---
Progress Note: A&P Assessment and Plan (1) Acute respiratory failure with hypoxia: Code(s): J96.01 - Acute respiratory failure with hypoxia Status: Acute Assessment and Plan: * presented to the emergency department for increasing weakness and shortness of breath * Tested positive for COVID 19 on 04/26/2021 * Vaccinated: [employer] December 2020. * Chest x-ray shows: worsening pneumonia * dexamethasone and remdesivir * Inflammatory markers: Ferritin 765, LDH 881, CRP 13.2, Dimer 0.72 * Will order tocilizumab due to patient increased oxygen demand * Continue p.r.n albuterol MDI * pulmonary toilet: IS/Cornette * Encourage prone positioning (2) Pneumonia due to 2019 novel coronavirus: Code(s): U07.1 - COVID-19; J12.82 - Pneumonia due to coronavirus disease 2019 Status: Acute Assessment and Plan: * See above (3) Essential (primary) hypertension: Code(s): I10 - Essential (primary) hypertension Status: Acute Assessment and Plan: * Current BP 137/70 * Amlodipine 5mg PO Daily, lisinopril 20mg PO Daily * trend BP * adjust medications as indicated (4) Type 2 diabetes mellitus with peripheral neuropathy: Code(s): E11.42 - Type 2 diabetes mellitus with diabetic polyneuropathy Status: Acute Assessment and Plan: * Current glucose 142 * trend labs * Adjust medications as needed * Trend labs * A1c 7.1 * Initiate sliding scale insulin * Accu-Cheks * hypoglycemic protocol. (5) Obstructive sleep apnea: Code(s): G47.33 - Obstructive sleep apnea (adult) (pediatric) Status: Acute Assessment and Plan: * Continue home therapy when able (6) Mixed hyperlipidemia: Code(s): E78.2 - Mixed hyperlipidemia Status: Acute Assessment and Plan: * Continue simvastatin 20mg PO Daily (7) Hypothyroidism: Code(s): E03.9 - Hypothyroidism, unspecified Status: Acute Assessment and Plan: * Continue home levothyroxine 50mcg PO daily * TSH 1.710 (8) BPH (benign prostatic hyperplasia): Code(s): N40.0 - Benign prostatic hyperplasia without lower urinary tract symptoms Status: Acute Assessment and Plan: * Continue home tamsulosin * Consider post residual void to assess for fully empting Time Spent With Patient Time: Weaning oxygen and assessment Time with patient: Greater than 35 minutes Subjective Date/time seen: 05/18/21 0910 Interval history: Date/Time: 05/17/21 14:00 Narrative: This is a 75-year-old male with history of hypertension, hyperlipidemia, diabetes, hypothyroidism, gastroesophageal reflux disease, sleep apnea, and benign prostatic hyperplasia who presented to the emergency departm ent earlier today via EMS from home for evaluation of weakness and shortness of breath. He tested positive for COVID 19 on 05/06/2021 after having a couple days of symptoms to include fever, chills, aches, decreased appetite, nausea, and sinus congestion. He was seen in the emergency department on 05/12/2021 with for evaluation of ongoing fevers and a chest x-ray at that time showed patchy opacities of the mid and lower lung zones and he was discharged home with supportive care; he had no oxygen requirement at that time. Unfortunately he continues to feel unwell with poor oral intake and progressive weakness. He also endorses increasing shortness of breath over th
[2021-05-18] MEDS: allopurinoL 300 MG TABLET PO (09:46)
[2021-05-18] MEDS: TAMSULOSIN HCL 0.4 MG CAPSULE PO (09:46)
[2021-05-18] MEDS: guaiFENesin 12 HR 600 MG TABCR PO ×2 (09:46→21:19)
[2021-05-18] MEDS: VENLAFAXINE HCL XR 75 MG CAP.ER.24H 225 MG BY MOUTH (09:46)
[2021-05-18] MEDS: SIMVASTATIN 20 MG TABLET PO (09:47)
[2021-05-18] MEDS: amLODIPine BESYLATE 5 MG TABLET PO (09:47)
[2021-05-18] MEDS: PANTOPRAZOLE 40 MG TABLET PO (09:47)
[2021-05-18] MEDS: lisinopriL 20 MG TABLET PO (09:47)
[2021-05-18] MEDS: ENOXAPARIN 40 MG/0.4 ML SYRINGE SUB-Q (12:07)
[2021-05-18] MEDS: ALBUTEROL SULFATE (*SP) INHALER 2 PUFF INHALATION ×3 (12:07→20:36)
[2021-05-18 14:00] LABS: Glucose Point of Care 151 mg/dl (65-105)
[2021-05-18 14:16] LABS: NT Pro B Type Natriuretic Pept 176 pg/mL (5-100)
[2021-05-18 17:30] LABS: Glucose Point of Care 169 mg/dl (65-105)
[2021-05-18] MEDS: REMDESIVIR 100 MG/NS 250 ML 100 MG/250 ML BAG 250 MG IVPB (21:19)
[2021-05-18 21:33] LABS: Glucose Point of Care 255 mg/dl (65-105)
[2021-05-19] VITALS (11 sets, daily range): BP systolic 124–146; BP diastolic 61–71; PULSE 61–86; RESP 18–52; TEMP 35.8–36.7; O2SAT 90–93
[2021-05-19] MEDS: ALBUTEROL SULFATE (*SP) INHALER 2 PUFF INHALATION ×7 (00:10→23:46)
[2021-05-19] MEDS: LEVOTHYROXINE SODIUM 50 MCG TABLET BY MOUTH (05:32)
[2021-05-19 06:02] LABS: Hemoglobin 16.4 g/dL (14.0-18.0); Immature Granulocyte Absolute 0.04 K/mm3 (0.00-0.031); Immature Granulocyte Percent A 0.6 % (0-0.5); Lymphocytes Absolute Auto 0.28 K/mm3 (0.9-3.2); Mean Corpuscular HGB Conc 33.5 g/dl (32-36); Mean Corpuscular Hemoglobin 31.5 pg (26-34); Mean Corpuscular Volume 94.2 fl (80-100); Mean Platelet Volume 10.3 fl (7.4-10.4); Monocytes Absolute Auto 0.2 K/mm3 (0.1-0.6); Neutrophils Absolute Auto 6.4 K/mm3 (1.3-6.7); Neutrophils Percent Auto 92.4 % (45.5-73.1); Platelet Count Result 282 k/mm3 (150-375); Red Cell Distribution Width 13.1 % (11.5-14.5)
[2021-05-19 06:18] LABS: INR 1.1; Prothrombin Time 13.9 Seconds (11.1-14.7)
[2021-05-19 06:29] LABS: Alanine Aminotransferase 45 U/L (4-50); Albumin Level 3.6 g/dL (3.5-5.1); Alkaline Phosphatase 85 U/L (38-126); Anion Gap 13 mmol/L (8-16); Aspartate Amino Transferase 45 U/L (17-59); Bilirubin,Total 0.7 mg/dL (0.2-1.3); Blood Urea Nitrogen 20 mg/dL (9-20); Carbon Dioxide 26 mmol/L (22-30); Chloride 99 mmol/L (98-107); Estimated CRCL calculation 101 ml/min; Estimated Glomerular Filt Rate > 60; Glucose 179 mg/dL (65-110); Magnesium 2.1 mg/dL (1.6-2.3); Potassium 4.1 mmol/L (3.4-5.0); Sodium 138 mmol/L (137-145)
[2021-05-19 08:23] LABS: Glucose Point of Care 175 mg/dl (65-105)
[2021-05-19] MEDS: amLODIPine BESYLATE 5 MG TABLET PO (09:37)
[2021-05-19] MEDS: lisinopriL 20 MG TABLET PO (09:37)
[2021-05-19] MEDS: TAMSULOSIN HCL 0.4 MG CAPSULE PO (09:38)
[2021-05-19] MEDS: allopurinoL 300 MG TABLET PO (09:38)
[2021-05-19] MEDS: ENOXAPARIN 40 MG/0.4 ML SYRINGE SUB-Q (09:38)
[2021-05-19] MEDS: PANTOPRAZOLE 40 MG TABLET PO (09:38)
[2021-05-19] MEDS: VENLAFAXINE HCL XR 75 MG CAP.ER.24H 225 MG BY MOUTH (09:38)
[2021-05-19] MEDS: guaiFENesin 12 HR 600 MG TABCR PO ×2 (09:38→22:10)
[2021-05-19] MEDS: SIMVASTATIN 20 MG TABLET PO (09:38)
--- NOTE | 2021-05-19 10:30 | PM.IMPN ---
Progress Note: A&P Assessment and Plan (1) Acute respiratory failure with hypoxia: Code(s): J96.01 - Acute respiratory failure with hypoxia Status: Acute Assessment and Plan: presented to the emergency department for increasing weakness and shortness of breath Tested positive for COVID 19 on 04/26/2021 Vaccinated: [email or web address] December 2020. Chest x-ray shows: worsening pneumonia dexamethasone and remdesivir Inflammatory markers: Ferritin 765, LDH 881, CRP 13.2, Dimer 0.72 05/19/21 Will order tocilizumab due to patient increased oxygen demand Continue p.r.n albuterol MDI pulmonary toilet: IS/Karele Encourage prone positioning BNP 176, will give 40mg Lasix one time Add azithromycin to cover bacterial possiblities (2) Pneumonia due to 2019 novel coronavirus: Code(s): U07.1 - COVID-19; J12.82 - Pneumonia due to coronavirus disease 2019 Status: Acute Assessment and Plan: See above (3) Essential (primary) hypertension: Code(s): I10 - Essential (primary) hypertension Status: Acute Assessment and Plan: Current BP 139/71 Amlodipine 5mg PO Daily, lisinopril 20mg PO Daily trend BP adjust medications as indicated (4) Type 2 diabetes mellitus with peripheral neuropathy: Code(s): E11.42 - Type 2 diabetes mellitus with diabetic polyneuropathy Status: Acute Assessment and Plan: Current glucose 179 trend labs Adjust medications as needed Trend labs A1c 7.1 Initiate sliding scale insulin Accu-Cheks hypoglycemic protocol. (5) Obstructive sleep apnea: Code(s): G47.33 - Obstructive sleep apnea (adult) (pediatric) Status: Acute Assessment and Plan: Continue home therapy when able (6) Mixed hyperlipidemia: Code(s): E78.2 - Mixed hyperlipidemia Status: Acute Assessment and Plan: Continue simvastatin 20mg PO Daily (7) Hypothyroidism: Code(s): E03.9 - Hypothyroidism, unspecified Status: Acute Assessment and Plan: Continue home levothyroxine 50mcg PO daily TSH 1.710 (8) BPH (benign prostatic hyperplasia): Code(s): N40.0 - Benign prostatic hyperplasia without lower urinary tract symptoms Status: Acute Assessment and Plan: Continue home tamsulosin Consider post residual void to assess for fully empting Time Spent With Patient Time with patient: Greater than 35 minutes Subjective Date/time seen: 05/19/21 10:30 Interval history: Date/Time: 05/17/21 14:00 Narrative: This is a 75-year-old male with history of hypertension, hyperlipidemia, diabetes, hypothyroidism, gastroesophageal reflux disease, sleep apnea, and benign prostatic hyperplasia who presented to the emergency department earlier today via EMS from home for evaluation of weakness and shortness of breath. He tested positive for COVID 19 on 05/06/2021 after having a couple days of symptoms to include fever, chills, aches, decreased appetite, nausea, and sinus congestion. He was seen in the emergency department on 05/12/2021 with for evaluation of ongoing fevers and a chest x-ray at that time showed patchy opacities of the mid and lower lung zones and he was discharged home with supportive care; he had no oxygen requirement at that time. Unfortunately he continues to feel unwell with poor oral intake and progressive weakness. He also endorses increasing shortness of breath over the last 5 days and on EMS arrival his SpO2 was 88% on room air. Chest x-ray today showed progression of acute airspace disease due to COVID pneumonia and he is being admitted in this setting. He is feeling a bit better now that he is on oxygen. He denies chest pain pleuritic pain. No vomiting or diarrhea. He received the [employer] COVID vaccination in December 2020. Date/Time seen: 05/18/21 0910 Patient states that he is doing okay today. He is stil
--- NOTE | 2021-05-19 10:30 | P.PNIM_ITS ---
Progress Note: A&P Assessment and Plan (1) Acute respiratory failure with hypoxia: Code(s): J96.01 - Acute respiratory failure with hypoxia Status: Acute Assessment and Plan: * presented to the emergency department for increasing weakness and shortness of breath * Tested positive for COVID 19 on 04/26/2021 * Vaccinated: [employer] December 2020. * Chest x-ray shows: worsening pneumonia * dexamethasone and remdesivir * Inflammatory markers: Ferritin 765, LDH 881, CRP 13.2, Dimer 0.72 05/19/21 * Will order tocilizumab due to patient increased oxygen demand * Continue p.r.n albuterol MDI * pulmonary toilet: IS/Cornette * Encourage prone positioning * BNP 176, will give 40mg Lasix one time * Add azithromycin to cover bacterial possiblities (2) Pneumonia due to 2019 novel coronavirus: Code(s): U07.1 - COVID-19; J12.82 - Pneumonia due to coronavirus disease 2019 Status: Acute Assessment and Plan: * See above (3) Essential (primary) hypertension: Code(s): I10 - Essential (primary) hypertension Status: Acute Assessment and Plan: * Current BP 139/71 * Amlodipine 5mg PO Daily, lisinopril 20mg PO Daily * trend BP * adjust medications as indicated (4) Type 2 diabetes mellitus with peripheral neuropathy: Code(s): E11.42 - Type 2 diabetes mellitus with diabetic polyneuropathy Status: Acute Assessment and Plan: * Current glucose 179 * trend labs * Adjust medications as needed * Trend labs * A1c 7.1 * Initiate sliding scale insulin * Accu-Cheks * hypoglycemic protocol. (5) Obstructive sleep apnea: Code(s): G47.33 - Obstructive sleep apnea (adult) (pediatric) Status: Acute Assessment and Plan: * Continue home therapy when able (6) Mixed hyperlipidemia: Code(s): E78.2 - Mixed hyperlipidemia Status: Acute Assessment and Plan: * Continue simvastatin 20mg PO Daily (7) Hypothyroidism: Code(s): E03.9 - Hypothyroidism, unspecified Status: Acute Assessment and Plan: * Continue home levothyroxine 50mcg PO daily * TSH 1.710 (8) BPH (benign prostatic hyperplasia): Code(s): N40.0 - Benign prostatic hyperplasia without lower urinary tract symptoms Status: Acute Assessment and Plan: * Continue home tamsulosin * Consider post residual void to assess for fully empting Time Spent With Patient Time with patient: Greater than 35 minutes Subjective Date/time seen: 05/19/21 10:30 Interval history: Date/Time: 05/17/21 14:00 Narrative: This is a 75-year-old male with history of hypertension, hyperlipidemia, diabetes, hypothyroidism, gastroesophageal reflux disease, sleep apnea, and benign prostatic hyperplasia who presented to the emergency department earlier today via EMS from home for evaluation of weakness and shortness of breath. He tested positive for COVID 19 on 05/06/2021 after having a couple days of symptoms to include fever, chills, aches, decreased appetite, nausea, and sinus congestion. He was seen in the emergency department on 05/12/2021 with for evaluation of ongoing fevers and a chest x-ray at that time showed patchy opacities of the mid and lower lung zones and he was discharged home with supportive care; he had no oxygen requirement at that time. Unfortunately he continues to feel unwell with poor oral intake and progre
[2021-05-19 11:58] LABS: Glucose Point of Care 243 mg/dl (65-105)
[2021-05-19] MEDS: FUROSEMIDE INJ 40 MG/4 ML VIAL IV PUSH (12:24)
[2021-05-19] MEDS: INSULIN ASPART (*BKC) 100 UNITS/ML SUB-Q (12:24)
[2021-05-19 16:49] LABS: Glucose Point of Care 147 mg/dl (65-105)
[2021-05-19] MEDS: REMDESIVIR 100 MG/NS 250 ML 100 MG/250 ML BAG 250 MG IVPB (22:11)
[2021-05-19 22:17] LABS: Glucose Point of Care 257 mg/dl (65-105)
[2021-05-20] VITALS (13 sets, daily range): BP systolic 124–174; BP diastolic 62–82; PULSE 62–88; RESP 18–22; TEMP 35.9–36.7; O2SAT 91–95
--- NOTE | 2021-05-20 | ECHOL_ITS ---
Patient Info Name: Francis Johnson Age: 75 years : 1945 Gender: Male Ht: 72 in Wt: 211 lbs BSA: 2.22 m2 BP: 148 / 70 mmHg Exam Date: 05/20/2021 1:23 PM Exam Location: [facility] Patient Status: Inpatient Admit Date: 05/17/2021 Staff Ordering Physician: Galen Chandler Home Performance Consultant: Nadeem Tobar RDCS, RT Attending Provider: Galen Chandler Referring Physician: Ramesh CASEY; Exam Type: CA echo limited Study Info Indications I26.99 - Other pulmonary embolism without acute cor pulmonale Limited two-dimensional transthoracic echocardiogram is performed. Summary 1. Limited echocardiogram to assess for right ventricular strain. 2. Right ventricular chamber dimension is normal. 3. Right ventricular systolic function is normal. 4. There is trace tricuspid valve regurgitation. 5. Mild pulmonary hypertension, estimated pulmonary arterial systolic pressure is 42 mmHg. Right Ventricle Limited echocardiogram to assess for right ventricular strain. Right ventricular chamber dimension is normal. Right ventricular systolic function is normal. Tricuspid Valve There is trace tricuspid valve regurgitation. Mild pulmonary hypertension, estimated pulmonary arterial systolic pressure is 42 mmHg. Inferior Vena Cava Normal inferior vena cava with >50% collapse upon inspiration consistent with normal right atrial pressure, 5 mmHg. Tricuspid Valve Name Value Normal TV Regurgitation Doppler TR Peak Velocity 304 cm/s TR Peak Gradient 37 mmHg Estimated PAP/RSVP RA Pressure 5 mmHg <=5 PA Systolic Pressure 42 mmHg <36 RV Systolic Pressure 42 mmHg <36 TV Diastolic Function RV MPI 0.09 <=0.43 Atria Name Value Normal RA Dimensions RA Area (4C) 15.0 cm2 <=18.0 Report Signatures
[2021-05-20] MEDS: ALBUTEROL SULFATE (*SP) INHALER 2 PUFF INHALATION ×5 (04:27→20:55)
[2021-05-20 06:05] LABS: Basophils Percent Auto 0.1 % (0.2-1.2); Hematocrit 43.9 % (42.0-52.0); Hemoglobin 15.5 g/dL (14.0-18.0); Immature Granulocyte Absolute 0.08 K/mm3 (0.00-0.031); Immature Granulocyte Percent A 1.1 % (0-0.5); Lymphocytes Absolute Auto 0.26 K/mm3 (0.9-3.2); Lymphocytes Percent Auto 3.4 % (18.3-44.2); Mean Corpuscular HGB Conc 35.3 g/dl (32-36); Mean Corpuscular Hemoglobin 31.8 pg (26-34); Mean Platelet Volume 10.2 fl (7.4-10.4); Monocytes Absolute Auto 0.3 K/mm3 (0.1-0.6); Monocytes Percent Auto 4.2 % (2.6-8.5); Neutrophils Absolute Auto 6.9 K/mm3 (1.3-6.7); Neutrophils Percent Auto 91.2 % (45.5-73.1); Platelet Count Result 297 k/mm3 (150-375); Red Blood Count 4.88 M/mm3 (4.6-6.20); Red Cell Distribution Width 12.9 % (11.5-14.5); White Blood Count 7.6 K/mm3 (4.5-10.0)
[2021-05-20 06:12] LABS: Alanine Aminotransferase 49 U/L (4-50); Albumin Level 3.3 g/dL (3.5-5.1); Alkaline Phosphatase 71 U/L (38-126); Anion Gap 9 mmol/L (8-16); Aspartate Amino Transferase 35 U/L (17-59); Bilirubin,Total 0.6 mg/dL (0.2-1.3); Blood Urea Nitrogen 21 mg/dL (9-20); CRP 1.9 mg/dL (<1.0); Calcium 8.7 mg/dL (8.4-10.2); Carbon Dioxide 26 mmol/L (22-30); Chloride 103 mmol/L (98-107); Estimated CRCL calculation 88 ml/min; Estimated Glomerular Filt Rate > 60; Glucose 186 mg/dL (65-110); Lactate Dehydrogenase 776 U/L (313-618); Potassium 3.6 mmol/L (3.4-5.0); Sodium 138 mmol/L (137-145)
[2021-05-20 06:16] LABS: INR 1.2; Prothrombin Time 15.2 Seconds (11.1-14.7)
[2021-05-20] MEDS: LEVOTHYROXINE SODIUM 50 MCG TABLET BY MOUTH (06:24)
[2021-05-20 06:27] LABS: D Dimer 13.69 ug/mL (<0.48)
[2021-05-20 08:16] LABS: Glucose Point of Care 173 mg/dl (65-105)
--- NOTE | 2021-05-20 08:20 | PM.IMPN ---
Progress Note: A&P Assessment and Plan (1) Acute respiratory failure with hypoxia: Code(s): J96.01 - Acute respiratory failure with hypoxia Status: Acute Assessment and Plan: presented to the emergency department for increasing weakness and shortness of breath Tested positive for COVID 19 on 04/26/2021 Vaccinated: Door 6 December 2020. Chest x-ray shows: worsening pneumonia dexamethasone and remdesivir Day 4 Inflammatory markers: Ferritin 548 LDH 776, CRP 1.9, Dimer 13.69 05/20/21 tocilizumab 05/18/21 Continue p.r.n albuterol MDI pulmonary toilet: IS/Cornette Encourage prone positioning BNP 176, 40mg Lasix 05/19/21 Add azithromycin to cover bacterial possibilities (2) Pneumonia due to 2019 novel coronavirus: Code(s): U07.1 - COVID-19; J12.82 - Pneumonia due to coronavirus disease 2019 Status: Acute Assessment and Plan: See above (3) Pulmonary emboli: Code(s): I26.99 - Other pulmonary embolism without acute cor pulmonale Status: Acute Assessment and Plan: CTA showed multiple bilateral lower lobe PEs, with low clot burden D.Dimer was elevated to 13.69 Lovenox increased to 1mg/kg BID Will probably need to transition to oral upon discharge Venous doppler ordered and pending Echo from 03/24/21 showed EF of 60-65% with grade 1 diastolic dysfunction, will get a limited echo to look for right heart strain. (4) Essential (primary) hypertension: Code(s): I10 - Essential (primary) hypertension Status: Acute Assessment and Plan: Current BP 124/67 Amlodipine 5mg PO Daily, lisinopril 20mg PO Daily trend BP adjust medications as indicated (5) Type 2 diabetes mellitus with peripheral neuropathy: Code(s): E11.42 - Type 2 diabetes mellitus with diabetic polyneuropathy Status: Acute Assessment and Plan: Current glucose 186 trend labs Adjust medications as needed Trend labs A1c 7.1 Initiate sliding scale insulin Accu-Cheks hypoglycemic protocol. (6) Obstructive sleep apnea: Code(s): G47.33 - Obstructive sleep apnea (adult) (pediatric) Status: Acute Assessment and Plan: Continue home therapy when able (7) Mixed hyperlipidemia: Code(s): E78.2 - Mixed hyperlipidemia Status: Acute Assessment and Plan: Continue simvastatin 20mg PO Daily (8) Hypothyroidism: Code(s): E03.9 - Hypothyroidism, unspecified Status: Acute Assessment and Plan: Continue home levothyroxine 50mcg PO daily TSH 1.710 (9) BPH (benign prostatic hyperplasia): Code(s): N40.0 - Benign prostatic hyperplasia without lower urinary tract symptoms Status: Acute Assessment and Plan: Continue home tamsulosin Consider post residual void to assess for fully empting Time Spent With Patient Time with patient: Greater than 35 minutes Subjective Date/time seen: 05/20/21 0820 Interval history: Date/Time: 05/17/21 14:00 Narrative: This is a 75-year-old male with history of hypertension, hyperlipidemia, diabetes, hypothyroidism, gastroesophageal reflux disease, sleep apnea, and benign prostatic hyperplasia who presented to the emergency department earlier today via EMS from home for evaluation of weakness and shortness of breath. He tested positive for COVID 19 on 05/06/2021 after having a couple days of symptoms to include fever, chills, aches, decreased appetite, nausea, and sinus congestion. He was seen in the emergency department on 05/12/2021 with for evaluation of ongoing fevers and a chest x-ray at that time showed patchy opacities of the mid and lower lung zones and he was discharged home with supportive care; he had no oxygen requirement at that time. Unfortunately he continues to feel unwell with poor oral intake and progressive weakness. He also endorses increasing shortness of br
--- NOTE | 2021-05-20 08:20 | P.PNIM_ITS ---
Progress Note: A&P Assessment and Plan (1) Acute respiratory failure with hypoxia: Code(s): J96.01 - Acute respiratory failure with hypoxia Status: Acute Assessment and Plan: * presented to the emergency department for increasing weakness and shortness of breath * Tested positive for COVID 19 on 04/26/2021 * Vaccinated: [employer] December 2020. * Chest x-ray shows: worsening pneumonia * dexamethasone and remdesivir Day 4 * Inflammatory markers: Ferritin 548 LDH 776, CRP 1.9, Dimer 13.69 05/20/21 * tocilizumab 05/18/21 * Continue p.r.n albuterol MDI * pulmonary toilet: IS/Cornette * Encourage prone positioning * BNP 176, 40mg Lasix 05/19/21 * Add azithromycin to cover bacterial possibilities (2) Pneumonia due to 2019 novel coronavirus: Code(s): U07.1 - COVID-19; J12.82 - Pneumonia due to coronavirus disease 2019 Status: Acute Assessment and Plan: * See above (3) Pulmonary emboli: Code(s): I26.99 - Other pulmonary embolism without acute cor pulmonale Status: Acute Assessment and Plan: * CTA showed multiple bilateral lower lobe PEs, with low clot burden * D.Dimer was elevated to 13.69 * Lovenox increased to 1mg/kg BID * Will probably need to transition to oral upon discharge * Venous doppler ordered and pending * Echo from 03/24/21 showed EF of 60-65% with grade 1 diastolic dysfunction, will get a limited echo to look for right heart strain. (4) Essential (primary) hypertension: Code(s): I10 - Essential (primary) hypertension Status: Acute Assessment and Plan: * Current BP 124/67 * Amlodipine 5mg PO Daily, lisinopril 20mg PO Daily * trend BP * adjust medications as indicated (5) Type 2 diabetes mellitus with peripheral neuropathy: Code(s): E11.42 - Type 2 diabetes mellitus with diabetic polyneuropathy Status: Acute Assessment and Plan: * Current glucose 186 * trend labs * Adjust medications as needed * Trend labs * A1c 7.1 * Initiate sliding scale insulin * Accu-Cheks * hypoglycemic protocol. (6) Obstructive sleep apnea: Code(s): G47.33 - Obstructive sleep apnea (adult) (pediatric) Status: Acute Assessment and Plan: * Continue home therapy when able (7) Mixed hyperlipidemia: Code(s): E78.2 - Mixed hyperlipidemia Status: Acute Assessment and Plan: * Continue simvastatin 20mg PO Daily (8) Hypothyroidism: Code(s): E03.9 - Hypothyroidism, unspecified Status: Acute Assessment and Plan: * Continue home levothyroxine 50mcg PO daily * TSH 1.710 (9) BPH (benign prostatic hyperplasia): Code(s): N40.0 - Benign prostatic hyperplasia without lower urinary tract symptoms Status: Acute Assessment and Plan: * Continue home tamsulosin * Consider post residual void to assess for fully empting Time Spent With Patient Time with patient: Greater than 35 minutes Subjective Date/time seen: 05/20/21 0820 Interval history: Date/Time: 05/17/21 14:00 Narrative: This is a 75-year-old male with history of hypertension, hyperlipidemia, diabetes, hypothyroidism, gastroesophageal reflux disease, sleep apnea, and benign prostatic hyperplasia who presented to the emergency department earlier today via EMS from home for evaluation of weakness and s
[2021-05-20] MEDS: ENOXAPARIN 40 MG/0.4 ML SYRINGE SUB-Q (08:28)
[2021-05-20] MEDS: allopurinoL 300 MG TABLET PO (08:29)
[2021-05-20] MEDS: SIMVASTATIN 20 MG TABLET PO (08:29)
[2021-05-20] MEDS: amLODIPine BESYLATE 5 MG TABLET PO (08:29)
[2021-05-20] MEDS: VENLAFAXINE HCL XR 75 MG CAP.ER.24H 225 MG BY MOUTH (08:29)
[2021-05-20] MEDS: lisinopriL 20 MG TABLET PO (08:29)
[2021-05-20] MEDS: guaiFENesin 12 HR 600 MG TABCR PO ×2 (08:30→22:48)
[2021-05-20] MEDS: TAMSULOSIN HCL 0.4 MG CAPSULE PO (08:30)
[2021-05-20] MEDS: PANTOPRAZOLE 40 MG TABLET PO (08:30)
[2021-05-20 11:41] LABS: Glucose Point of Care 178 mg/dl (65-105)
[2021-05-20] MEDS: FUROSEMIDE INJ 40 MG/4 ML VIAL 20 MG IV PUSH (12:41)
[2021-05-20] MEDS: ENOXAPARIN 60 MG/0.6 ML SYRINGE 56 MG SUB-Q (13:49)
[2021-05-20 17:24] LABS: Glucose Point of Care 306 mg/dl (65-105)
[2021-05-20] MEDS: INSULIN ASPART (*BKC) 100 UNITS/ML SUB-Q (17:42)
[2021-05-20] MEDS: REMDESIVIR 100 MG/NS 250 ML 100 MG/250 ML BAG 250 MG IVPB (22:48)
[2021-05-20] MEDS: ENOXAPARIN 100 MG/ML SYRINGE 96 MG SUB-Q (22:49)
[2021-05-21] VITALS (10 sets, daily range): BP systolic 143–159; BP diastolic 65–74; PULSE 62–98; RESP 17–19; TEMP 36.1–36.7; O2SAT 90–95
[2021-05-21] MEDS: ALBUTEROL SULFATE (*SP) INHALER 2 PUFF INHALATION ×6 (00:48→23:28)
[2021-05-21 06:24] LABS: Basophils Percent Auto 0.2 % (0.2-1.2); Hematocrit 43.4 % (42.0-52.0); Hemoglobin 14.8 g/dL (14.0-18.0); Immature Granulocyte Absolute 0.07 K/mm3 (0.00-0.031); Immature Granulocyte Percent A 1.1 % (0-0.5); Lymphocytes Absolute Auto 0.19 K/mm3 (0.9-3.2); Lymphocytes Percent Auto 2.9 % (18.3-44.2); Mean Corpuscular HGB Conc 34.1 g/dl (32-36); Mean Platelet Volume 10.3 fl (7.4-10.4); Monocytes Absolute Auto 0.4 K/mm3 (0.1-0.6); Monocytes Percent Auto 5.6 % (2.6-8.5); Neutrophils Absolute Auto 5.8 K/mm3 (1.3-6.7); Neutrophils Percent Auto 90.2 % (45.5-73.1); Platelet Count Result 310 k/mm3 (150-375); Red Blood Count 4.77 M/mm3 (4.6-6.20); Red Cell Distribution Width 13.1 % (11.5-14.5); White Blood Count 6.5 K/mm3 (4.5-10.0)
[2021-05-21 06:27] LABS: Alanine Aminotransferase 64 U/L (4-50); Albumin Level 3.2 g/dL (3.5-5.1); Alkaline Phosphatase 71 U/L (38-126); Anion Gap 5 mmol/L (8-16); Aspartate Amino Transferase 40 U/L (17-59); Bilirubin,Total 0.5 mg/dL (0.2-1.3); Blood Urea Nitrogen 17 mg/dL (9-20); Calcium 8.6 mg/dL (8.4-10.2); Carbon Dioxide 31 mmol/L (22-30); Chloride 102 mmol/L (98-107); Estimated CRCL calculation 88 ml/min; Estimated Glomerular Filt Rate > 60; Glucose 211 mg/dL (65-110); Magnesium 2.1 mg/dL (1.6-2.3); Potassium 3.5 mmol/L (3.4-5.0); Sodium 138 mmol/L (137-145)
[2021-05-21 07:12] LABS: INR 1.1; Prothrombin Time 14.5 Seconds (11.1-14.7)
[2021-05-21 08:11] LABS: Glucose Point of Care 169 mg/dl (65-105)
--- NOTE | 2021-05-21 08:50 | PM.IMPN ---
Progress Note: A&P Assessment and Plan (1) Acute respiratory failure with hypoxia: Code(s): J96.01 - Acute respiratory failure with hypoxia Status: Acute Assessment and Plan: presented to the emergency department for increasing weakness and shortness of breath Tested positive for COVID 19 on 04/26/2021 Vaccinated: [employer] December 2020. Chest x-ray shows: worsening pneumonia dexamethasone and remdesivir Day 4 Inflammatory markers: Ferritin 548 LDH 776, CRP 1.9, Dimer 13.69 05/20/21 tocilizumab 05/18/21 Continue p.r.n albuterol MDI pulmonary toilet: IS/Cornette Encourage prone positioning BNP 176, 40mg Lasix 05/19/21 & 05/20/21 Add azithromycin to cover bacterial possibilities (2) Pneumonia due to 2019 novel coronavirus: Code(s): U07.1 - COVID-19; J12.82 - Pneumonia due to coronavirus disease 2019 Status: Acute Assessment and Plan: See above (3) Pulmonary emboli: Code(s): I26.99 - Other pulmonary embolism without acute cor pulmonale Status: Acute Assessment and Plan: CTA showed multiple bilateral lower lobe PEs, with low clot burden D.Dimer was elevated to 13.69 (05/20/21) Seems to be resolving Lovenox increased to 1mg/kg BID Will probably need to transition to oral upon discharge Venous Doppler showed patent legs Echo from 03/24/21 showed EF of 60-65% with grade 1 diastolic dysfunction, will get a limited echo to look for right heart strain. (4) Essential (primary) hypertension: Code(s): I10 - Essential (primary) hypertension Status: Acute Assessment and Plan: Current BP 155/74 Amlodipine 5mg PO Daily, lisinopril 20mg PO Daily trend BP adjust medications as indicated (5) Type 2 diabetes mellitus with peripheral neuropathy: Code(s): E11.42 - Type 2 diabetes mellitus with diabetic polyneuropathy Status: Acute Assessment and Plan: Current glucose 211 trend labs Adjust medications as needed Trend labs A1c 7.1 Initiate sliding scale insulin Accu-Cheks hypoglycemic protocol. (6) Obstructive sleep apnea: Code(s): G47.33 - Obstructive sleep apnea (adult) (pediatric) Status: Acute Assessment and Plan: Continue home therapy when able (7) Mixed hyperlipidemia: Code(s): E78.2 - Mixed hyperlipidemia Status: Acute Assessment and Plan: Continue simvastatin 20mg PO Daily (8) Hypothyroidism: Code(s): E03.9 - Hypothyroidism, unspecified Status: Acute Assessment and Plan: Continue home levothyroxine 50mcg PO daily TSH 1.710 (9) BPH (benign prostatic hyperplasia): Code(s): N40.0 - Benign prostatic hyperplasia without lower urinary tract symptoms Status: Acute Assessment and Plan: Continue home tamsulosin Consider post residual void to assess for fully empting (10) GERD (gastroesophageal reflux disease): Code(s): K21.9 - Gastro-esophageal reflux disease without esophagitis Status: Acute Assessment and Plan: Complaints of GERD Protonix PO 40mg Daily added Time Spent With Patient Time with patient: Greater than 35 minutes Subjective Date/time seen: 05/21/21 08:50 Interval history: Date/Time: 05/17/21 14:00 Narrative: This is a 75-year-old male with history of hypertension, hyperlipidemia, diabetes, hypothyroidism, gastroesophageal reflux disease, sleep apnea, and benign prostatic hyperplasia who presented to the emergency department earlier today via EMS from home for evaluation of weakness and shortness of breath. He tested positive for COVID 19 on 05/06/2021 after having a couple days of symptoms to include fever, chills, aches, decreased appetite, nausea, and sinus congestion. He was seen in the emergency department on 05/12/2021 with for evaluation of ongoing fevers and a chest x-ray at that time sh
--- NOTE | 2021-05-21 08:50 | P.PNIM_ITS ---
Progress Note: A&P Assessment and Plan (1) Acute respiratory failure with hypoxia: Code(s): J96.01 - Acute respiratory failure with hypoxia Status: Acute Assessment and Plan: * presented to the emergency department for increasing weakness and shortness of breath * Tested positive for COVID 19 on 04/26/2021 * Vaccinated: [employer] December 2020. * Chest x-ray shows: worsening pneumonia * dexamethasone and remdesivir Day 4 * Inflammatory markers: Ferritin 548 LDH 776, CRP 1.9, Dimer 13.69 05/20/21 * tocilizumab 05/18/21 * Continue p.r.n albuterol MDI * pulmonary toilet: IS/Cornette * Encourage prone positioning * BNP 176, 40mg Lasix 05/19/21 & 05/20/21 * Add azithromycin to cover bacterial possibilities (2) Pneumonia due to 2019 novel coronavirus: Code(s): U07.1 - COVID-19; J12.82 - Pneumonia due to coronavirus disease 2019 Status: Acute Assessment and Plan: * See above (3) Pulmonary emboli: Code(s): I26.99 - Other pulmonary embolism without acute cor pulmonale Status: Acute Assessment and Plan: * CTA showed multiple bilateral lower lobe PEs, with low clot burden * D.Dimer was elevated to 13.69 (05/20/21) * Seems to be resolving * Lovenox increased to 1mg/kg BID * Will probably need to transition to oral upon discharge * Venous Doppler showed patent legs * Echo from 03/24/21 showed EF of 60-65% with grade 1 diastolic dysfunction, will get a limited echo to look for right heart strain. (4) Essential (primary) hypertension: Code(s): I10 - Essential (primary) hypertension Status: Acute Assessment and Plan: * Current BP 155/74 * Amlodipine 5mg PO Daily, lisinopril 20mg PO Daily * trend BP * adjust medications as indicated (5) Type 2 diabetes mellitus with peripheral neuropathy: Code(s): E11.42 - Type 2 diabetes mellitus with diabetic polyneuropathy Status: Acute Assessment and Plan: * Current glucose 211 * trend labs * Adjust medications as needed * Trend labs * A1c 7.1 * Initiate sliding scale insulin * Accu-Cheks * hypoglycemic protocol. (6) Obstructive sleep apnea: Code(s): G47.33 - Obstructive sleep apnea (adult) (pediatric) Status: Acute Assessment and Plan: * Continue home therapy when able (7) Mixed hyperlipidemia: Code(s): E78.2 - Mixed hyperlipidemia Status: Acute Assessment and Plan: * Continue simvastatin 20mg PO Daily (8) Hypothyroidism: Code(s): E03.9 - Hypothyroidism, unspecified Status: Acute Assessment and Plan: * Continue home levothyroxine 50mcg PO daily * TSH 1.710 (9) BPH (benign prostatic hyperplasia): Code(s): N40.0 - Benign prostatic hyperplasia without lower urinary tract symptoms Status: Acute Assessment and Plan: * Continue home tamsulosin * Consider post residual void to assess for fully empting (10) GERD (gastroesophageal reflux disease): Code(s): K21.9 - Gastro-esophageal reflux disease without esophagitis Status: Acute Assessment and Plan: * Complaints of GERD * Protonix PO 40mg Daily added Time Spent With Patient Time with patient: Greater than 35 minutes Subjective Date/time seen: 05/21/21 08:50 Interval history: Date/Time: 1
[2021-05-21] MEDS: lisinopriL 20 MG TABLET PO (09:07)
[2021-05-21] MEDS: amLODIPine BESYLATE 5 MG TABLET PO (09:07)
[2021-05-21] MEDS: PANTOPRAZOLE 40 MG TABLET PO (09:07)
[2021-05-21] MEDS: allopurinoL 300 MG TABLET PO (09:07)
[2021-05-21] MEDS: LEVOTHYROXINE SODIUM 50 MCG TABLET BY MOUTH (09:07)
[2021-05-21] MEDS: TAMSULOSIN HCL 0.4 MG CAPSULE PO (09:07)
[2021-05-21] MEDS: VENLAFAXINE HCL XR 75 MG CAP.ER.24H 225 MG BY MOUTH (09:07)
[2021-05-21] MEDS: SIMVASTATIN 20 MG TABLET PO (09:08)
[2021-05-21] MEDS: ENOXAPARIN 100 MG/ML SYRINGE 96 MG SUB-Q ×2 (09:08→20:48)
[2021-05-21] MEDS: guaiFENesin 12 HR 600 MG TABCR PO ×2 (09:08→20:48)
--- NOTE | 2021-05-21 09:58 | P.CDI_ITS ---
CDI Query Clarification Request -05/17 D Dimer 0.72 05/20 D Dimer 13.69 -05/20 CTA with bilateral lower lobe segmental pulmonary emboli -05/20 PE documented Please clarify if PE was: * Present on admission * Not present on admission * Unable to determine <Georgina Hanson RN - Last Filed: 05/21/21 10:00> This was probably not present on admission, however, this cannot be determined. D.Dimer was thought to be elevated secondary to covid <XENIA Yo - Last Filed: 05/21/21 11:12>
[2021-05-21 13:15] LABS: Glucose Point of Care 363 mg/dl (65-105)
[2021-05-21] MEDS: INSULIN ASPART (*BKC) 100 UNITS/ML SUB-Q (13:15)
[2021-05-21 17:09] LABS: Glucose Point of Care 183 mg/dl (65-105)
[2021-05-21] MEDS: REMDESIVIR 100 MG/NS 250 ML 100 MG/250 ML BAG 250 MG IVPB (20:48)
[2021-05-21 21:22] LABS: Glucose Point of Care 291 mg/dl (65-105)
[2021-05-22] VITALS (8 sets, daily range): BP systolic 123–158; BP diastolic 57–84; PULSE 59–78; RESP 16–20; TEMP 36–36.7; O2SAT 91–95
[2021-05-22] MEDS: ALBUTEROL SULFATE (*SP) INHALER 2 PUFF INHALATION ×5 (04:22→20:27)
[2021-05-22] MEDS: LEVOTHYROXINE SODIUM 50 MCG TABLET BY MOUTH (05:33)
[2021-05-22 06:35] LABS: Basophils Percent Auto 0.3 % (0.2-1.2); Hematocrit 43.8 % (42.0-52.0); Immature Granulocyte Absolute 0.14 K/mm3 (0.00-0.031); Immature Granulocyte Percent A 1.8 % (0-0.5); Lymphocytes Absolute Auto 0.29 K/mm3 (0.9-3.2); Lymphocytes Percent Auto 3.7 % (18.3-44.2); Mean Corpuscular HGB Conc 34.2 g/dl (32-36); Mean Corpuscular Hemoglobin 31.2 pg (26-34); Mean Corpuscular Volume 91.1 fl (80-100); Monocytes Absolute Auto 0.4 K/mm3 (0.1-0.6); Monocytes Percent Auto 5.3 % (2.6-8.5); Neutrophils Percent Auto 88.9 % (45.5-73.1); Platelet Count Result 339 k/mm3 (150-375); Red Blood Count 4.81 M/mm3 (4.6-6.20); Red Cell Distribution Width 12.9 % (11.5-14.5); White Blood Count 7.9 K/mm3 (4.5-10.0)
[2021-05-22 06:46] LABS: Alanine Aminotransferase 57 U/L (4-50); Albumin Level 3.2 g/dL (3.5-5.1); Alkaline Phosphatase 62 U/L (38-126); Anion Gap 5 mmol/L (8-16); Aspartate Amino Transferase 27 U/L (17-59); Bilirubin,Total 0.7 mg/dL (0.2-1.3); Blood Urea Nitrogen 15 mg/dL (9-20); Calcium 8.6 mg/dL (8.4-10.2); Carbon Dioxide 30 mmol/L (22-30); Chloride 101 mmol/L (98-107); Estimated CRCL calculation 101 ml/min; Estimated Glomerular Filt Rate > 60; Glucose 190 mg/dL (65-110); Potassium 4.5 mmol/L (3.4-5.0); Sodium 136 mmol/L (137-145)
[2021-05-22 07:54] LABS: Glucose Point of Care 182 mg/dl (65-105)
[2021-05-22] MEDS: ENOXAPARIN 100 MG/ML SYRINGE 96 MG SUB-Q ×2 (08:39→20:30)
[2021-05-22] MEDS: guaiFENesin 12 HR 600 MG TABCR PO ×2 (08:40→20:30)
[2021-05-22] MEDS: allopurinoL 300 MG TABLET PO (08:40)
[2021-05-22] MEDS: amLODIPine BESYLATE 5 MG TABLET PO (08:40)
[2021-05-22] MEDS: PANTOPRAZOLE 40 MG TABLET PO (08:40)
[2021-05-22] MEDS: VENLAFAXINE HCL XR 75 MG CAP.ER.24H 225 MG BY MOUTH (08:40)
[2021-05-22] MEDS: TAMSULOSIN HCL 0.4 MG CAPSULE PO (08:40)
[2021-05-22] MEDS: SIMVASTATIN 20 MG TABLET PO (08:40)
[2021-05-22] MEDS: lisinopriL 20 MG TABLET PO (08:40)
[2021-05-22 12:19] LABS: Glucose Point of Care 280 mg/dl (65-105)
--- NOTE | 2021-05-22 12:30 | P.PNIM_ITS ---
Progress Note: A&P Assessment and Plan (1) Acute respiratory failure with hypoxia: Code(s): J96.01 - Acute respiratory failure with hypoxia Status: Acute Assessment and Plan: * presented to the emergency department for increasing weakness and shortness of breath * Tested positive for COVID 19 on 04/26/2021 * Vaccinated: [employer] December 2020. * Chest x-ray shows: worsening pneumonia * dexamethasone and remdesivir Day 5 * Inflammatory markers: Ferritin 548 LDH 776, CRP 1.9, Dimer 13.69 05/20/21 * tocilizumab 05/18/21 * Continue p.r.n albuterol MDI * pulmonary toilet: IS/Cornette * Encourage prone positioning * BNP 176, 40mg Lasix 05/19/21 & 05/20/21 * Add azithromycin to cover bacterial possibilities (2) Pneumonia due to 2019 novel coronavirus: Code(s): U07.1 - COVID-19; J12.82 - Pneumonia due to coronavirus disease 2019 Status: Acute Assessment and Plan: * See above (3) Pulmonary emboli: Code(s): I26.99 - Other pulmonary embolism without acute cor pulmonale Status: Acute Assessment and Plan: * CTA showed multiple bilateral lower lobe PEs, with low clot burden * D.Dimer was elevated to 13.69 (05/20/21) * Seems to be resolving * Lovenox increased to 1mg/kg BID * Will probably need to transition to oral upon discharge * Venous Doppler showed patent legs * Echo from 03/24/21 showed EF of 60-65% with grade 1 diastolic dysfunction, will get a limited echo to look for right heart strain. (4) Essential (primary) hypertension: Code(s): I10 - Essential (primary) hypertension Status: Acute Assessment and Plan: * Current BP 158/80 * Amlodipine 5mg PO Daily, lisinopril 20mg PO Daily * trend BP * adjust medications as indicated (5) Type 2 diabetes mellitus with peripheral neuropathy: Code(s): E11.42 - Type 2 diabetes mellitus with diabetic polyneuropathy Status: Acute Assessment and Plan: * Current glucose 190 * trend labs * Adjust medications as needed * Trend labs * A1c 7.1 * Initiate sliding scale insulin * Accu-Cheks * hypoglycemic protocol. (6) Obstructive sleep apnea: Code(s): G47.33 - Obstructive sleep apnea (adult) (pediatric) Status: Acute Assessment and Plan: * Continue home therapy when able (7) Mixed hyperlipidemia: Code(s): E78.2 - Mixed hyperlipidemia Status: Acute Assessment and Plan: * Continue simvastatin 20mg PO Daily (8) Hypothyroidism: Code(s): E03.9 - Hypothyroidism, unspecified Status: Acute Assessment and Plan: * Continue home levothyroxine 50mcg PO daily * TSH 1.710 (9) BPH (benign prostatic hyperplasia): Code(s): N40.0 - Benign prostatic hyperplasia without lower urinary tract symptoms Status: Acute Assessment and Plan: * Continue home tamsulosin * Consider post residual void to assess for fully empting (10) GERD (gastroesophageal reflux disease): Code(s): K21.9 - Gastro-esophageal reflux disease without esophagitis Status: Acute Assessment and Plan: * Complaints of GERD * Protonix PO 40mg Daily added Time Spent With Patient Time with patient: Greater than 35 minutes Subjective Date/time seen: 05/22/21 12:30 Interval history: Date/Time: 1
--- NOTE | 2021-05-22 12:30 | PM.IMPN ---
Progress Note: A&P Assessment and Plan (1) Acute respiratory failure with hypoxia: Code(s): J96.01 - Acute respiratory failure with hypoxia Status: Acute Assessment and Plan: presented to the emergency department for increasing weakness and shortness of breath Tested positive for COVID 19 on 04/26/2021 Vaccinated: [employer] December 2020. Chest x-ray shows: worsening pneumonia dexamethasone and remdesivir Day 5 Inflammatory markers: Ferritin 548 LDH 776, CRP 1.9, Dimer 13.69 05/20/21 tocilizumab 05/18/21 Continue p.r.n albuterol MDI pulmonary toilet: IS/Cornette Encourage prone positioning BNP 176, 40mg Lasix 05/19/21 & 05/20/21 Add azithromycin to cover bacterial possibilities (2) Pneumonia due to 2019 novel coronavirus: Code(s): U07.1 - COVID-19; J12.82 - Pneumonia due to coronavirus disease 2019 Status: Acute Assessment and Plan: See above (3) Pulmonary emboli: Code(s): I26.99 - Other pulmonary embolism without acute cor pulmonale Status: Acute Assessment and Plan: CTA showed multiple bilateral lower lobe PEs, with low clot burden D.Dimer was elevated to 13.69 (05/20/21) Seems to be resolving Lovenox increased to 1mg/kg BID Will probably need to transition to oral upon discharge Venous Doppler showed patent legs Echo from 03/24/21 showed EF of 60-65% with grade 1 diastolic dysfunction, will get a limited echo to look for right heart strain. (4) Essential (primary) hypertension: Code(s): I10 - Essential (primary) hypertension Status: Acute Assessment and Plan: Current BP 158/80 Amlodipine 5mg PO Daily, lisinopril 20mg PO Daily trend BP adjust medications as indicated (5) Type 2 diabetes mellitus with peripheral neuropathy: Code(s): E11.42 - Type 2 diabetes mellitus with diabetic polyneuropathy Status: Acute Assessment and Plan: Current glucose 190 trend labs Adjust medications as needed Trend labs A1c 7.1 Initiate sliding scale insulin Accu-Cheks hypoglycemic protocol. (6) Obstructive sleep apnea: Code(s): G47.33 - Obstructive sleep apnea (adult) (pediatric) Status: Acute Assessment and Plan: Continue home therapy when able (7) Mixed hyperlipidemia: Code(s): E78.2 - Mixed hyperlipidemia Status: Acute Assessment and Plan: Continue simvastatin 20mg PO Daily (8) Hypothyroidism: Code(s): E03.9 - Hypothyroidism, unspecified Status: Acute Assessment and Plan: Continue home levothyroxine 50mcg PO daily TSH 1.710 (9) BPH (benign prostatic hyperplasia): Code(s): N40.0 - Benign prostatic hyperplasia without lower urinary tract symptoms Status: Acute Assessment and Plan: Continue home tamsulosin Consider post residual void to assess for fully empting (10) GERD (gastroesophageal reflux disease): Code(s): K21.9 - Gastro-esophageal reflux disease without esophagitis Status: Acute Assessment and Plan: Complaints of GERD Protonix PO 40mg Daily added Time Spent With Patient Time with patient: Greater than 35 minutes Subjective Date/time seen: 05/22/21 12:30 Interval history: Date/Time: 05/17/21 14:00 Narrative: This is a 75-year-old male with history of hypertension, hyperlipidemia, diabetes, hypothyroidism, gastroesophageal reflux disease, sleep apnea, and benign prostatic hyperplasia who presented to the emergency department earlier today via EMS from home for evaluation of weakness and shortness of breath. He tested positive for COVID 19 on 05/06/2021 after having a couple days of symptoms to include fever, chills, aches, decreased appetite, nausea, and sinus congestion. He was seen in the emergency department on 05/12/2021 with for evaluation of ongoing fevers and a chest x-ray at that time sh
--- NOTE | 2021-05-22 13:21 | PCNFU ---
Nutrition Follow-Up Complete: Inadequate oral intake as related to COVID/pnumonia as evidenced by weight loss of 15 ibs in 2 weeks and poor po intake. Goal: Adequate Intake of at least 75% of meals/supplements Patient has met current goal. No new goal. Pt current nutrition is DBCC with Ensure compact BID. Last recorded weight is 96.5 kg, up from 90.8 kg on admit. Bowel Motility:+BM reported 05/20 Labs Reviewed:Glu 190,Na 136, Alb 3.2,Cr 0.6 Meds Noted:Effexor,Flomax, Zocor, Remdesivir, Protonix, Zyloprim, Decadron, Zithromax, Synthroid, Lovenox, Norvasc, NovoLog. Additional Notes: Nutrition follow up. Spoke with patient over telephone today due to COVID 19 precautions. Patient states appetite is improving, eating 50-100% of diabetic meals. Diet supplements remain twice per day of Ensure compact BID providing an additional 220 kcals and 9 gms protein. Skin: WNL. Agree with diet orders. Monitoring: RD will monitor every 7 days.
[2021-05-22 16:34] LABS: Glucose Point of Care 244 mg/dl (65-105)
[2021-05-22] MEDS: INSULIN ASPART (*BKC) 100 UNITS/ML SUB-Q (17:52)
[2021-05-22 22:10] LABS: Glucose Point of Care 247 mg/dl (65-105)
[2021-05-23] VITALS (12 sets, daily range): BP systolic 130–152; BP diastolic 61–86; PULSE 59–83; RESP 16–20; TEMP 35.8–36.3; O2SAT 91–100
[2021-05-23] MEDS: ALBUTEROL SULFATE (*SP) INHALER 2 PUFF INHALATION ×5 (00:31→20:00)
[2021-05-23] MEDS: LEVOTHYROXINE SODIUM 50 MCG TABLET BY MOUTH (05:55)
[2021-05-23 06:57] LABS: Basophils Percent Auto 0.4 % (0.2-1.2); Eosinophils Percent Auto 0.1 % (0-4.4); Hematocrit 45.4 % (42.0-52.0); Hemoglobin 15.7 g/dL (14.0-18.0); Immature Granulocyte Percent A 2.8 % (0-0.5); Lymphocytes Absolute Auto 0.36 K/mm3 (0.9-3.2); Lymphocytes Percent Auto 3.4 % (18.3-44.2); Mean Corpuscular HGB Conc 34.6 g/dl (32-36); Mean Corpuscular Hemoglobin 31.5 pg (26-34); Mean Platelet Volume 9.9 fl (7.4-10.4); Monocytes Absolute Auto 0.6 K/mm3 (0.1-0.6); Monocytes Percent Auto 5.6 % (2.6-8.5); Neutrophils Absolute Auto 9.3 K/mm3 (1.3-6.7); Neutrophils Percent Auto 87.7 % (45.5-73.1); Platelet Count Result 332 k/mm3 (150-375); Red Blood Count 4.99 M/mm3 (4.6-6.20); Red Cell Distribution Width 12.9 % (11.5-14.5); White Blood Count 10.6 K/mm3 (4.5-10.0)
[2021-05-23 07:07] LABS: Alanine Aminotransferase 52 U/L (4-50); Albumin Level 3.2 g/dL (3.5-5.1); Alkaline Phosphatase 59 U/L (38-126); Anion Gap 6 mmol/L (8-16); Aspartate Amino Transferase 24 U/L (17-59); Bilirubin,Total 0.7 mg/dL (0.2-1.3); Blood Urea Nitrogen 16 mg/dL (9-20); Calcium 8.5 mg/dL (8.4-10.2); Carbon Dioxide 26 mmol/L (22-30); Chloride 99 mmol/L (98-107); Estimated CRCL calculation 119 ml/min; Estimated Glomerular Filt Rate > 60; Glucose 195 mg/dL (65-110); Magnesium 1.8 mg/dL (1.6-2.3); Potassium 3.7 mmol/L (3.4-5.0); Sodium 131 mmol/L (137-145)
[2021-05-23 08:46] LABS: Glucose Point of Care 153 mg/dl (65-105)
[2021-05-23] MEDS: VENLAFAXINE HCL XR 75 MG CAP.ER.24H 225 MG BY MOUTH (09:15)
[2021-05-23] MEDS: lisinopriL 20 MG TABLET PO (09:15)
[2021-05-23] MEDS: ENOXAPARIN 100 MG/ML SYRINGE 96 MG SUB-Q ×2 (09:15→20:35)
[2021-05-23] MEDS: guaiFENesin 12 HR 600 MG TABCR PO ×2 (09:15→20:36)
[2021-05-23] MEDS: SIMVASTATIN 20 MG TABLET PO (09:15)
[2021-05-23] MEDS: allopurinoL 300 MG TABLET PO (09:15)
[2021-05-23] MEDS: PANTOPRAZOLE 40 MG TABLET PO (09:15)
[2021-05-23] MEDS: TAMSULOSIN HCL 0.4 MG CAPSULE PO (09:15)
[2021-05-23] MEDS: amLODIPine BESYLATE 5 MG TABLET PO (09:15)
--- NOTE | 2021-05-23 11:00 | PM.IMPN ---
Progress Note: A&P Assessment and Plan (1) Acute respiratory failure with hypoxia: Code(s): J96.01 - Acute respiratory failure with hypoxia Status: Acute Assessment and Plan: presented to the emergency department for increasing weakness and shortness of breath Tested positive for COVID 19 on 04/26/2021 Vaccinated: [employer] December 2020. Chest x-ray shows: worsening pneumonia dexamethasone day 6 remdesivir completed Inflammatory markers: Ferritin 548 LDH 776, CRP 1.9, Dimer 13.69 05/20/21, recheck in the am tocilizumab 05/18/21 Continue p.r.n albuterol MDI pulmonary toilet: IS/Cornette Encourage prone positioning 20mg IV lasix once Add azithromycin day 4 (2) Pneumonia due to 2019 novel coronavirus: Code(s): U07.1 - COVID-19; J12.82 - Pneumonia due to coronavirus disease 2019 Status: Acute Assessment and Plan: See above (3) Pulmonary emboli: Code(s): I26.99 - Other pulmonary embolism without acute cor pulmonale Status: Acute Assessment and Plan: CTA showed multiple bilateral lower lobe PEs, with low clot burden D.Dimer was elevated to 13.69 (05/20/21) Seems to be resolving Lovenox increased to 1mg/kg BID Will probably need to transition to oral upon discharge Venous Doppler showed patent legs Echo from 03/24/21 showed EF of 60-65% with grade 1 diastolic dysfunction, will get a limited echo to look for right heart strain. (4) Essential (primary) hypertension: Code(s): I10 - Essential (primary) hypertension Status: Acute Assessment and Plan: Current BP 130/64 Amlodipine 5mg PO Daily, lisinopril 20mg PO Daily trend BP adjust medications as indicated (5) Type 2 diabetes mellitus with peripheral neuropathy: Code(s): E11.42 - Type 2 diabetes mellitus with diabetic polyneuropathy Status: Acute Assessment and Plan: Current glucose 195 trend labs Adjust medications as needed Trend labs A1c 7.1 Initiate sliding scale insulin Accu-Cheks hypoglycemic protocol. (6) Obstructive sleep apnea: Code(s): G47.33 - Obstructive sleep apnea (adult) (pediatric) Status: Acute Assessment and Plan: Continue home therapy when able (7) Mixed hyperlipidemia: Code(s): E78.2 - Mixed hyperlipidemia Status: Acute Assessment and Plan: Continue simvastatin 20mg PO Daily (8) Hypothyroidism: Code(s): E03.9 - Hypothyroidism, unspecified Status: Acute Assessment and Plan: Continue home levothyroxine 50mcg PO daily TSH 1.710 (9) BPH (benign prostatic hyperplasia): Code(s): N40.0 - Benign prostatic hyperplasia without lower urinary tract symptoms Status: Acute Assessment and Plan: Continue home tamsulosin Consider post residual void to assess for fully empting (10) GERD (gastroesophageal reflux disease): Code(s): K21.9 - Gastro-esophageal reflux disease without esophagitis Status: Acute Assessment and Plan: Complaints of GERD Protonix PO 40mg Daily added Time Spent With Patient Time with patient: Greater than 35 minutes Subjective Date/time seen: 05/23/21 11:00 Interval history: Date/Time: 05/17/21 14:00 Narrative: This is a 75-year-old male with history of hypertension, hyperlipidemia, diabetes, hypothyroidism, gastroesophageal reflux disease, sleep apnea, and benign prostatic hyperplasia who presented to the emergency department earlier today via EMS from home for evaluation of weakness and shortness of breath. He tested positive for COVID 19 on 05/06/2021 after having a couple days of symptoms to include fever, chills, aches, decreased appetite, nausea, and sinus congestion. He was seen in the emergency department on 05/12/2021 with for evaluation of ongoing fevers and a chest x-ray at that time showed patchy opacit
--- NOTE | 2021-05-23 11:00 | P.PNIM_ITS ---
Progress Note: A&P Assessment and Plan (1) Acute respiratory failure with hypoxia: Code(s): J96.01 - Acute respiratory failure with hypoxia Status: Acute Assessment and Plan: * presented to the emergency department for increasing weakness and shortness of breath * Tested positive for COVID 19 on 04/26/2021 * Vaccinated: Oscar & Oscar December 2020. * Chest x-ray shows: worsening pneumonia * dexamethasone day 6 * remdesivir completed * Inflammatory markers: Ferritin 548 LDH 776, CRP 1.9, Dimer 13.69 05/20/21, recheck in the am * tocilizumab 05/18/21 * Continue p.r.n albuterol MDI * pulmonary toilet: IS/Cornette * Encourage prone positioning * 20mg IV lasix once * Add azithromycin day 4 (2) Pneumonia due to 2019 novel coronavirus: Code(s): U07.1 - COVID-19; J12.82 - Pneumonia due to coronavirus disease 2019 Status: Acute Assessment and Plan: * See above (3) Pulmonary emboli: Code(s): I26.99 - Other pulmonary embolism without acute cor pulmonale Status: Acute Assessment and Plan: * CTA showed multiple bilateral lower lobe PEs, with low clot burden * D.Dimer was elevated to 13.69 (05/20/21) * Seems to be resolving * Lovenox increased to 1mg/kg BID * Will probably need to transition to oral upon discharge * Venous Doppler showed patent legs * Echo from 03/24/21 showed EF of 60-65% with grade 1 diastolic dysfunction, will get a limited echo to look for right heart strain. (4) Essential (primary) hypertension: Code(s): I10 - Essential (primary) hypertension Status: Acute Assessment and Plan: * Current BP 130/64 * Amlodipine 5mg PO Daily, lisinopril 20mg PO Daily * trend BP * adjust medications as indicated (5) Type 2 diabetes mellitus with peripheral neuropathy: Code(s): E11.42 - Type 2 diabetes mellitus with diabetic polyneuropathy Status: Acute Assessment and Plan: * Current glucose 195 * trend labs * Adjust medications as needed * Trend labs * A1c 7.1 * Initiate sliding scale insulin * Accu-Cheks * hypoglycemic protocol. (6) Obstructive sleep apnea: Code(s): G47.33 - Obstructive sleep apnea (adult) (pediatric) Status: Acute Assessment and Plan: * Continue home therapy when able (7) Mixed hyperlipidemia: Code(s): E78.2 - Mixed hyperlipidemia Status: Acute Assessment and Plan: * Continue simvastatin 20mg PO Daily (8) Hypothyroidism: Code(s): E03.9 - Hypothyroidism, unspecified Status: Acute Assessment and Plan: * Continue home levothyroxine 50mcg PO daily * TSH 1.710 (9) BPH (benign prostatic hyperplasia): Code(s): N40.0 - Benign prostatic hyperplasia without lower urinary tract symptoms Status: Acute Assessment and Plan: * Continue home tamsulosin * Consider post residual void to assess for fully empting (10) GERD (gastroesophageal reflux disease): Code(s): K21.9 - Gastro-esophageal reflux disease without esophagitis Status: Acute Assessment and Plan: * Complaints of GERD * Protonix PO 40mg Daily added Time Spent With Patient Time with patient: Greater than 35 minutes Subjective Date/time seen: 05/23/21 11:00 Interval history: Date/Time: 05/17/21
[2021-05-23 12:08] LABS: Glucose Point of Care 253 mg/dl (65-105)
[2021-05-23] MEDS: FUROSEMIDE INJ 40 MG/4 ML VIAL 20 MG IV PUSH (12:17)
[2021-05-23] MEDS: INSULIN ASPART (*BKC) 100 UNITS/ML SUB-Q ×2 (12:17→16:58)
[2021-05-23 16:16] LABS: Glucose Point of Care 254 mg/dl (65-105)
--- NOTE | 2021-05-23 18:01 | PCRCNOTE ---
Window of time for administration has passed. See next scheduled administration.
--- NOTE | 2021-05-24 01:59 | PC.NURSE ---
Daylight Savings Time For Daylight Savings Time Ending in the Fall - Clocks are moved back. For Daylight Savings Time Beginning in the Spring - Clocks are moved ahead. For [facility], the time of change occurs at 0200 hrs. Time is taken from the sports book server. This entry on the patient's chart recognizes the change in time reflected during documentation. Example: 2 entries for vital signs may be charted for 0200 hrs.
[2021-05-24] MEDS: ALBUTEROL SULFATE (*SP) INHALER 2 PUFF INHALATION ×3 (03:12→12:53)
[2021-05-24 03:15] VITALS: PULSE 60
[2021-05-24 05:00] VITALS: BP 137/71; PULSE 65; RESP 12; TEMP 35.9; O2SAT 93
[2021-05-24] MEDS: LEVOTHYROXINE SODIUM 50 MCG TABLET BY MOUTH (05:41)
[2021-05-24 06:48] LABS: Glucose Point of Care 246 mg/dl (65-105)
[2021-05-24 07:17] LABS: Basophils Absolute Auto 0.1 K/mm3 (0.0-0.1); Basophils Percent Auto 0.8 % (0.2-1.2); Eosinophils Percent Auto 0.1 % (0-4.4); Hematocrit 50.7 % (42.0-52.0); Hemoglobin 17.6 g/dL (14.0-18.0); Immature Granulocyte Absolute 0.59 K/mm3 (0.00-0.031); Immature Granulocyte Percent A 5.2 % (0-0.5); Lymphocytes Absolute Auto 0.53 K/mm3 (0.9-3.2); Lymphocytes Percent Auto 4.6 % (18.3-44.2); Mean Corpuscular HGB Conc 34.7 g/dl (32-36); Mean Corpuscular Hemoglobin 31.3 pg (26-34); Mean Corpuscular Volume 90.1 fl (80-100); Monocytes Absolute Auto 0.7 K/mm3 (0.1-0.6); Monocytes Percent Auto 5.8 % (2.6-8.5); Neutrophils Absolute Auto 9.6 K/mm3 (1.3-6.7); Neutrophils Percent Auto 83.5 % (45.5-73.1); Platelet Count Result 424 k/mm3 (150-375); Red Blood Count 5.63 M/mm3 (4.6-6.20); Red Cell Distribution Width 13.1 % (11.5-14.5); White Blood Count 11.4 K/mm3 (4.5-10.0)
[2021-05-24 07:24] LABS: Alanine Aminotransferase 60 U/L (4-50); Albumin Level 3.8 g/dL (3.5-5.1); Alkaline Phosphatase 67 U/L (38-126); Anion Gap 8 mmol/L (8-16); Aspartate Amino Transferase 28 U/L (17-59); Blood Urea Nitrogen 19 mg/dL (9-20); CRP < 0.5 mg/dL (<1.0); Calcium 9.1 mg/dL (8.4-10.2); Carbon Dioxide 30 mmol/L (22-30); Chloride 97 mmol/L (98-107); Estimated CRCL calculation 77 ml/min; Estimated Glomerular Filt Rate > 60; Glucose 151 mg/dL (65-110); Lactate Dehydrogenase 675 U/L (313-618); Magnesium 2.2 mg/dL (1.6-2.3); Potassium 3.9 mmol/L (3.4-5.0); Sodium 135 mmol/L (137-145)
[2021-05-24 07:49] LABS: Glucose Point of Care 126 mg/dl (65-105)
--- NOTE | 2021-05-24 10:20 | P.DS_ITS ---
DS: Admitting Diagnosis Discharge Date Date of service 05/24/2021 10:20 Admitting Diagnosis COVID-19, bilateral PE DS: Discharge Diagnosis Discharge Diagnosis (1) Acute respiratory failure with hypoxia: Code(s): J96.01 - Acute respiratory failure with hypoxia Status: Acute Assessment and Plan: * presented to the emergency department for increasing weakness and shortness of breath * Tested positive for COVID 19 on 04/26/2021 * Vaccinated: Oscar & Oscar December 2020. * Chest x-ray shows: worsening pneumonia * dexamethasone day 6 * remdesivir completed * Inflammatory markers: Ferritin 449 LDH 675, CRP <0.5, Dimer 3.50 05/24/21, upon discharge * tocilizumab 05/18/21 * Continue p.r.n albuterol MDI * pulmonary toilet: IS/Cornette * Encourage prone positioning * 20mg IV lasix once * Add azithromycin day 5 (2) Pneumonia due to 2019 novel coronavirus: Code(s): U07.1 - COVID-19; J12.82 - Pneumonia due to coronavirus disease 2019 Status: Acute Assessment and Plan: * See above (3) Pulmonary emboli: Code(s): I26.99 - Other pulmonary embolism without acute cor pulmonale Status: Acute Assessment and Plan: * CTA showed multiple bilateral lower lobe PEs, with low clot burden * D.Dimer was elevated to 13.69 (05/20/21) * Seems to be resolving * Lovenox increased to 1mg/kg BID * Will probably need to transition to oral upon discharge * Venous Doppler showed patent legs * Echo from 03/24/21 showed EF of 60-65% with grade 1 diastolic dysfunction, will get a limited echo to look for right heart strain. (4) Essential (primary) hypertension: Code(s): I10 - Essential (primary) hypertension Status: Acute Assessment and Plan: * Current BP 130/64 * Amlodipine 5mg PO Daily, lisinopril 20mg PO Daily * trend BP * adjust medications as indicated (5) Type 2 diabetes mellitus with peripheral neuropathy: Code(s): E11.42 - Type 2 diabetes mellitus with diabetic polyneuropathy Status: Acute Assessment and Plan: * Current glucose 151 * trend labs * Adjust medications as needed * Trend labs * A1c 7.1 * Initiate sliding scale insulin * Accu-Cheks * hypoglycemic protocol. (6) Obstructive sleep apnea: Code(s): G47.33 - Obstructive sleep apnea (adult) (pediatric) Status: Acute Assessment and Plan: * Continue home therapy when able (7) Mixed hyperlipidemia: Code(s): E78.2 - Mixed hyperlipidemia Status: Acute Assessment and Plan: * Continue simvastatin 20mg PO Daily (8) Hypothyroidism: Code(s): E03.9 - Hypothyroidism, unspecified Status: Acute Assessment and Plan: * Continue home levothyroxine 50mcg PO daily * TSH 1.710 (9) BPH (benign prostatic hyperplasia): Code(s): N40.0 - Benign prostatic hyperplasia without lower urinary tract symptoms Status: Acute Assessment and Plan: * Continue home tamsulosin * Consider post residual void to assess for fully empting (10) GERD (gastroesophageal reflux disease): Code(s): K21.9 - Gastro-esophageal reflux disease without esophagitis Status: Acute Assessment and Plan: * Complaints of GERD * Protonix PO 40mg Daily added DS: Summary Hospital
--- NOTE | 2021-05-24 10:20 | PM.DS ---
DS: Admitting Diagnosis Discharge Date Date of service 05/24/2021 10:20 Admitting Diagnosis COVID-19, bilateral PE DS: Discharge Diagnosis Discharge Diagnosis (1) Acute respiratory failure with hypoxia: Code(s): J96.01 - Acute respiratory failure with hypoxia Status: Acute Assessment and Plan: presented to the emergency department for increasing weakness and shortness of breath Tested positive for COVID 19 on 04/26/2021 Vaccinated: Oscar & Oscar December 2020. Chest x-ray shows: worsening pneumonia dexamethasone day 6 remdesivir completed Inflammatory markers: Ferritin 449 LDH 675, CRP <0.5, Dimer 3.50 05/24/21, upon discharge tocilizumab 05/18/21 Continue p.r.n albuterol MDI pulmonary toilet: IS/Cornette Encourage prone positioning 20mg IV lasix once Add azithromycin day 5 (2) Pneumonia due to 2019 novel coronavirus: Code(s): U07.1 - COVID-19; J12.82 - Pneumonia due to coronavirus disease 2019 Status: Acute Assessment and Plan: See above (3) Pulmonary emboli: Code(s): I26.99 - Other pulmonary embolism without acute cor pulmonale Status: Acute Assessment and Plan: CTA showed multiple bilateral lower lobe PEs, with low clot burden D.Dimer was elevated to 13.69 (05/20/21) Seems to be resolving Lovenox increased to 1mg/kg BID Will probably need to transition to oral upon discharge Venous Doppler showed patent legs Echo from 03/24/21 showed EF of 60-65% with grade 1 diastolic dysfunction, will get a limited echo to look for right heart strain. (4) Essential (primary) hypertension: Code(s): I10 - Essential (primary) hypertension Status: Acute Assessment and Plan: Current BP 130/64 Amlodipine 5mg PO Daily, lisinopril 20mg PO Daily trend BP adjust medications as indicated (5) Type 2 diabetes mellitus with peripheral neuropathy: Code(s): E11.42 - Type 2 diabetes mellitus with diabetic polyneuropathy Status: Acute Assessment and Plan: Current glucose 151 trend labs Adjust medications as needed Trend labs A1c 7.1 Initiate sliding scale insulin Accu-Cheks hypoglycemic protocol. (6) Obstructive sleep apnea: Code(s): G47.33 - Obstructive sleep apnea (adult) (pediatric) Status: Acute Assessment and Plan: Continue home therapy when able (7) Mixed hyperlipidemia: Code(s): E78.2 - Mixed hyperlipidemia Status: Acute Assessment and Plan: Continue simvastatin 20mg PO Daily (8) Hypothyroidism: Code(s): E03.9 - Hypothyroidism, unspecified Status: Acute Assessment and Plan: Continue home levothyroxine 50mcg PO daily TSH 1.710 (9) BPH (benign prostatic hyperplasia): Code(s): N40.0 - Benign prostatic hyperplasia without lower urinary tract symptoms Status: Acute Assessment and Plan: Continue home tamsulosin Consider post residual void to assess for fully empting (10) GERD (gastroesophageal reflux disease): Code(s): K21.9 - Gastro-esophageal reflux disease without esophagitis Status: Acute Assessment and Plan: Complaints of GERD Protonix PO 40mg Daily added DS: Summary Hospital Course Hospital Course: Patient is a 75 year old male with a past medical history of diabetes, hypertension, hyperlipidemia, BPH, and lymphoma presented to the ED with shortness of breath. Patient was diagnosed on 04/26/2021 with COVID-19 he was vaccinated with Oscar & Oscar. Chest x-ray showed worsening pneumonia at time admission. Patient was given a course of remdesivir x5 days, dexamethasone b.i.d. for 6 days. Inflammatory markers upon admission were elevated which have been trending downward. Patient was also given Actemra and azithromycin. Patient was also treated with supplemental oxygen which has been weaned down to r
[2021-05-24] MEDS: VENLAFAXINE HCL XR 75 MG CAP.ER.24H 225 MG BY MOUTH (10:29)
[2021-05-24] MEDS: SIMVASTATIN 20 MG TABLET PO (10:29)
[2021-05-24] MEDS: guaiFENesin 12 HR 600 MG TABCR PO (10:29)
[2021-05-24] MEDS: TAMSULOSIN HCL 0.4 MG CAPSULE PO (10:30)
[2021-05-24] MEDS: ENOXAPARIN 100 MG/ML SYRINGE 96 MG SUB-Q (10:30)
[2021-05-24] MEDS: PANTOPRAZOLE 40 MG TABLET PO (10:30)
[2021-05-24] MEDS: lisinopriL 20 MG TABLET PO (10:30)
[2021-05-24] MEDS: allopurinoL 300 MG TABLET PO (10:30)
[2021-05-24] MEDS: amLODIPine BESYLATE 5 MG TABLET PO (10:30)
[2021-05-24 11:18] VITALS: PULSE 85; O2SAT 94
[2021-05-24 11:25] VITALS: PULSE 92; O2SAT 89
[2021-05-24 11:30] VITALS: PULSE 87; O2SAT 92
--- NOTE | 2021-05-24 11:50 | HOMEO2EVAL ---
Evaluation was performed at [facility] Home Oxygen Evaluation RC: Home Oxygen (O2) Evaluation Start: 05/24/21 11:30 Freq: ONCE Status: Active Protocol: RPE Activity Type Activity Date Activity User E-Sign Co-Sign Detail Recorded Client Recorded Date Recorded By Document 05/24/21 11:18 KAG [email or web address] 05/24/21 11:29 KAG Document 05/24/21 11:25 KAG [email or web address] 05/24/21 11:30 KAG Document 05/24/21 11:30 KAG [email or web address] 05/24/21 11:31 KAG 05/24/21 05/24/21 05/24/21 11:18 11:25 11:30 Home O2 Evaluation Test Phase Resting Exercise Resting Oxygen Delivery Room Air Room Air Room Air Pulse Oximetry (90-100 %) 94 89 L 92 Pulse Rate (60-100 beats/min) 85 92 87 Activity Tolerance Good Good Good Ambulation Distance (feet) 200 Treatment Charges O2 Evaluation - Inpatient
[2021-05-24 12:33] LABS: Glucose Point of Care 172 mg/dl (65-105)
[2021-05-24 12:53] VITALS: O2SAT 94
== END 2021-05-24 16:15 | disposition home or self-care (01) | DRG 177 ==
LOC: ANHED 13:32 → ANH3MEDSUR 14:10
PROVIDERS: Physician Assistant; Admitting Provider Family Medicine; Emergency Provider Emergency Medicine; PCP Family Medicine; Visit Provider Nurse Practitioner
DX: U07.1 COVID-19 (principal); J96.01 Acute respiratory failure with hypoxia; J12.82 Pneumonia due to coronavirus disease 2019; I26.99 Other pulmonary embolism without acute cor pulmonale; E11.42 Type 2 diabetes mellitus with diabetic polyneuropathy; I10 Essential (primary) hypertension; G47.33 Obstructive sleep apnea (adult) (pediatric); E78.2 Mixed hyperlipidemia; E03.9 Hypothyroidism, unspecified; N40.0 Benign prostatic hyperplasia without lower urinary tract symptoms; K21.9 Gastro-esophageal reflux disease without esophagitis; F41.8 Other specified anxiety disorders; M10.9 Gout, unspecified; Z79.82 Long term (current) use of aspirin; Z98.42 Cataract extraction status, left eye; Z98.41 Cataract extraction status, right eye
CPT/HCPCS: 36415; 36600; 71045; 71275; 80053; 82375; 82728; 82805; 82948; 83036; 83050; 83615; 83735; 83880; 84145; 84443; 85025; 85027; 85380; 85610; 85730; 86140; 93005; 93308; 93970; 94618; 94640; 94667; 96374; 97110; 97116; 97163; 97166; 97530; 97535; 99291; A9270; G0378; J0456; J1100; J1650; J1815; J1940; Q0249; Q9967

== ENCOUNTER 2021-08-13 07:42 | Outpatient (CLI) | payer MEDICARE, SELFPAY ==
--- NOTE | 2021-08-17 14:41 | WPDHOMESLEEP ---
Sleep Study - Home Unattended Date of Study: 08/13/21 <Mary Jane Lebron DO - Last Filed: 08/17/21 14:58> Ordering Provider: Ysabel Soto MD <Mary Jane Lebron DO - Last Filed: 08/17/21 14:58> Interpreting Provider: Mary Jane Lebron DO <Mary Jane Lebron - Last Filed: 08/17/21 14:58> Home Sleep Study Type: Apnea Link Air <Mary Jane Lebron DO - Last Filed: 08/17/21 14:58> Height: 1.8 m <Mary Jane Lebron - Last Filed: 08/17/21 14:58> Weight: 96.615 kg <Mary Jane Lebron DO - Last Filed: 08/17/21 14:58> Body Mass Index: 29.7 <Mary Jane Lebron - Last Filed: 08/17/21 14:58> Neck Circumference (inches): 18 <Mary Jane Lebron - Last Filed: 08/17/21 14:58> [place]: 10 <Mary Jane Lebron - Last Filed: 08/17/21 14:58> Reason for Sleep Study History of SHIRA. Not compliant with mandibular advancement device. <Mary Jane Lebron - Last Filed: 08/17/21 14:58> Sleep History The patient is a 75-year-old male with interstitial lung disease, depression, anxiety, hypertension, gout, hypothyroidism, hyperlipidemia, peripheral neuropathy, type 2 diabetes, pulmonary emboli from COVID pneumonia and previously diagnosed sleep apnea that had a home sleep test ordered by his competency evaluated nurse aide for evaluation of SHIRA. The patient is currently retired from working on the railroad. He rarely awakens from sleep short of breath. He rarely awakens at night with heartburn, belching or cough. He occasionally has trouble sleeping when he has a cold. He denies waking up gasping for air throughout the night. He rarely has breathing problems at night observed by others. He rarely sweats excessively at night. He rarely has heart palpitations or irregular heartbeats during the night. He denies falling asleep during the day and while driving. He denies cataplexy. He rarely feels unable to move Gwen waking up or falling asleep. He occasionally has hypnagogic / hypnopompic hallucinations. He denies having nightmares. He occasionally remembers his dreams. He rarely has thoughts racing through his mind. He rarely feels sad or depressed. He occasionally has anxiety. He occasionally notices parts of his body jerk. He frequently has chronic aching feelings in his legs. He occasionally has leg pain during the night. He rarely grinds his teeth during sleep but never awakens with morning jaw pain. He is rarely bothered by pain during the day and rarely awakened by pain during the night. He rarely wakes up feeling stiff in the morning with sore and achy muscles. He occasionally wakes up with pain in the neck, spine and other joints. He goes to bed between 10 and 11:00 p.m. on both weekdays and weekends. It takes him 10-20 minutes to fall asleep. He wakes up 1-4 times throughout the night to urinate. He can fall back asleep within 5 minutes. He wakes up between 6 and 7:00 a.m.. He typically gets 7-8 hours of sleep per night. He will stay in bed for 5-10 minutes after waking up in the morning. He currently lives alone. He denies consuming any caffeinated beverages within 2 hours of bedtime. He does not engage in physical exercise before bedtime. He will watch television before falling asleep. He does take naps in the afternoon or the evening that are refreshing. He quit smoking 25 years ago. He consumes 3 caffeinated beverages per day. He denies alcohol and recreational drug use. <Mary Jane Lebron DO - Last Filed: 08/17/21 14:58> [facility] Past Medical History Medical History: Medical History Acute respiratory failure with hypoxia Blood loss anemia Depression with anxiety Difficulty swallowing Essential (primary) hypertension Facial pressure Gout Hemoptysis Hypotension due to drugs Hypothyroidism Hypothyroidism (acquired) Mixed hyperlipidemia Normocytic normochromic anemia Obstru
[2021-08-17 14:56] VITALS: BMI 29.7
== END 2021-08-14 13:19 | disposition home or self-care (01) ==
LOC: ANHCSM 07:43
PROVIDERS: PCP Family Medicine; Visit Provider Internal Medicine Critical Care Medicine
DX: G47.33 Obstructive sleep apnea (adult) (pediatric) (principal)
CPT/HCPCS: 95806

== ENCOUNTER 2021-08-19 13:43 | Outpatient (CLI) | payer MEDICARE, SELFPAY ==
--- NOTE | 2021-08-21 08:50 | WPDPFTINT ---
PFT Procedure Performed PFT Procedure Performed Spirometry with Pre/Post Bronchodilator Plethysmography (Lung Vol) Diffusing Cap (DLCO) Flow Vol Loop PFT Interpretation Lung volumes were measured with the body plethysmography method. Lung volumes are unremarkable. Spirometry showed normal expiratory flow rates and a normal FEV1 to FVC ratio of 76%. Following administration of a bronchodilator there was no significant change in the expiratory flow rates. Lung diffusion capacity is borderline normal at 75 % predicted. The flow volume loop is unremarkable. Impression: Spirometry, lung volumes, and lung diffusion capacity all within the normal range.
--- NOTE | 2021-08-21 08:52 | WPDSIXMINUTE ---
Six Minute Walk Procedure Procedure Performed Pulmonary Stress Test (6 min walk) Six Minute Walk This 6 minute walk test was carried out with the patient breathing ambient air. The pre walk oxyhemoglobin saturation was 93% and the perceived dyspnea 0.5 on the Mello scale. The patient walked 365 m with no stops recorded. During the walk the oxyhemoglobin saturation remained over 90%. Patient reported fatigue as well. Impression: No evidence of oxyhemoglobin desaturation on this testing.
== END 2021-08-19 13:44 | disposition home or self-care (01) ==
LOC: ANHPFT 13:45
PROVIDERS: PCP Family Medicine; Visit Provider Internal Medicine Critical Care Medicine
DX: U09.9 Post COVID-19 condition, unspecified (principal)
CPT/HCPCS: 94060; 94618; 94726; 94729

== ENCOUNTER 2021-09-24 07:43 | Outpatient (CLI) | payer MEDICARE, SELFPAY ==
--- NOTE | 2021-10-01 21:20 | WPDSLEEPSTUD ---
Sleep Study Date of Study: 09/24/21 Ordering Provider: Ysabel Soto MD Interpreting Physician: Ysabel Soto MD Sleep Study Type: CPAP Titration Height: 1.8 m Weight: 99.79 kg Body Mass Index: 30.7 Neck Circumference (inches): 18 [place]: 11 Reason for Sleep Study * Home sleep test 08/13/2021 using ApneaLinkwith severe obstructive sleep apnea, AHI 53.4, destauraiton to 77%, he now presents for a CPAP titration Sleep History Francis Johnson is a 75-year-old male with interstitial lung disease, depression, anxiety, hypertension, gout, hypothyroidism, hyperlipidemia, peripheral neuropathy, type 2 diabetes, pulmonary emboli from COVID pneumonia. His 08/03/2021 home sleep test showed severe obstructive sleep apnea with severe desaturation to 77%. The patient is currently retired from working on the railroad. He rarely awakens from sleep short of breath. He rarely awakens at night with heartburn, belching or coughing. He occasionally has trouble sleeping when he has a cold. He denies waking up gasping for air throughout the night. He rarely has breathing problems at night observed by others. He rarely sweats excessively at night. He rarely has heart palpitations or irregular heartbeats during the night. He denies falling asleep during the day and while driving. He denies cataplexy. He rarely feels unable to move on waking or falling asleep. He occasionally has vivid dreams on waking or falling asleep. He denies having nightmares. He occasionally remembers his dreams. He rarely has thoughts racing through his mind. He rarely feels sad or depressed. He occasionally has anxiety. He occasionally notices parts of his body jerk. He frequently has chronic aching feelings in his legs. He occasionally has leg pain during the night. He rarely grinds his teeth during sleep. He does not wake with morning jaw pain. He is rarely bothered by pain during the day and rarely awakened by pain during the night. He rarely wakes up feeling stiff in the morning with sore or achy muscles. He occasionally wakes up with pain in the neck, spine and other joints. Normal bedtime is between 10 and 11:00 p.m., taking 10-20 minutes to fall asleep. He wakes up 1-4 times throughout the night to urinate. He can return to sleep within 5 minutes. He wakes up between 6 and 7:00 a.m.. He typically gets 7-8 hours of sleep per night. He will stay in bed for 5-10 minutes after waking up in the morning. He currently lives alone. He does take naps in the afternoon or the evening that are refreshing. Habits: Tobacco: quit smoking 25 years ago. Caffeine: 3 caffeinated beverages per day. He denies alcohol or recreational drug use. [facility] Past Medical History Medical History (Updated 10/01/21 @ 21:44 by Ysabel Soto MD) Acute respiratory failure with hypoxia Blood loss anemia Depression with anxiety Difficulty swallowing Essential (primary) hypertension Facial pressure Gout Hemoptysis Hypotension due to drugs Hypothyroidism Hypothyroidism (acquired) Mixed hyperlipidemia Normocytic normochromic anemia Obstructive sleep apnea Obstructive sleep apnea (adult) (pediatric) He has a dental apparatus which he does not have with him and no longer uses a CPAP Peripheral neuropathy Pneumonia due to 2019 novel coronavirus Shortness of Breath Tachycardia Type 2 diabetes mellitus with peripheral neuropathy Surgical History Surgical History History of bilateral cataract extraction History of colonoscopy with polypectomy (03/2013) Family History Family History Sibling Diabetes mellitus Father Family history of cardiovascular disease Acute myocardial infarction Mother Alzheimer's dementia Social History Social History Social History: Surrogate decision maker: Moni Theodore. Code status: Manoj
[2021-10-01 21:49] VITALS: BMI 30.7
== END 2021-09-25 07:15 | disposition home or self-care (01) ==
LOC: ANHCSM 07:44
PROVIDERS: PCP Family Medicine; Visit Provider Internal Medicine Critical Care Medicine
DX: G47.33 Obstructive sleep apnea (adult) (pediatric) (principal); G47.61 Periodic limb movement disorder; Z68.30 Body mass index [BMI] 30.0-30.9, adult
CPT/HCPCS: 95811

== ENCOUNTER 2022-04-06 08:21 | Outpatient (CLI) | payer MEDICARE, SELFPAY ==
--- NOTE | ~2022-04-06 | CT_ITS ---
EXAMINATION: CT abdomen pelvis w con DATE: 04/06/2022 08:57 INDICATION: Gastrointestinal hemorrhage with gastritis. Abdominal pain. TECHNIQUE: Computed tomography (CT) of the abdomen and pelvis was performed with 100 mL Omnipaque 350 intravenous contrast. Automated exposure control and iterative reconstruction technique were employe d. The dose-length product was 1170.97 mGy-cm. COMPARISON: CT abdomen and pelvis 01/26/2021 FINDINGS: The visualized portions of the lung bases demonstrate mild atelectasis and mild chronic fede g disease. No pleural effusion. The heart size is normal. There are coronary artery calcifications. N o pericardial effusion. The liver, gallbladder, spleen, pancreas, and adrenal glands are normal. Ther e is atrophy of right kidney lower pole. There is a 3 mm stone in right kidney. There is a 3 mm cyst in left kidney. There are no dilated loops of bowel. The appendix is normal. There are no pathologica lly enlarged lymph nodes. There is no free intraperitoneal fluid. The prostate is severely enlarged. There is prominent fat in right inguinal canal that may be a hernia. There is severe lumbar spondylos is and mild thoracic spondylosis. IMPRESSION: 1. Prominent fat in right inguinal canal that may be a hernia. Reviewed, dictated and finalized at location A.
[2022-04-06 08:49] LABS: Estimated Glomerular Filt Rate > 60
== END 2022-04-06 08:22 | disposition home or self-care (01) ==
PROVIDERS: PCP Family Medicine; Visit Provider Internal Medicine Medical Oncology
DX: K92.2 Gastrointestinal hemorrhage, unspecified (principal); R10.2 Pelvic and perineal pain; I25.10 Atherosclerotic heart disease of native coronary artery without angina pectoris; N20.0 Calculus of kidney; N28.1 Cyst of kidney, acquired; N40.0 Benign prostatic hyperplasia without lower urinary tract symptoms; K40.90 Unilateral inguinal hernia, without obstruction or gangrene, not specified as recurrent; M47.815 Spondylosis without myelopathy or radiculopathy, thoracolumbar region
CPT/HCPCS: 74177; Q9967

== ENCOUNTER 2022-05-25 01:13 | Day surgery (SDC) | payer MEDICARE, SELFPAY ==
[2022-05-18 13:50] VITALS: BMI 32.1
[2022-05-25 08:56] VITALS: BP 131/76; PULSE 102; RESP 18; TEMP 36.1; O2SAT 100; BMI 32.1
--- NOTE | 2022-05-25 09:02 | PM.HPGS ---
History of Present Illness History of Present Illness Consent: Risks, benefits, and alternatives have been discussed and questions answered. Patient agrees to proceed with procedure. Chief complaint: occult GI bleed Narrative: Francis Johnson is a 76 year old male Presents for colonoscopy and EGD. Patient is on chronic anticoagulation with Xarelto. Recently found to have Hemoccult-positive stools. GI endoscopy requested. Patient denies any obvious blood in his stools. He has had a vague lower abdominal discomfort and some change to the shape of his stools. He denies any bleeding. Patient's past medical history is significant for colon polyps. Additionally has been treated for lymphoma and felt to be in remission. Patient referred for endoscopy today. Review of Systems Review of Systems: Review of systems noncontributory. [facility] Past Medical History Medical History Acute respiratory failure with hypoxia Blood loss anemia Depression with anxiety Difficulty swallowing Essential (primary) hypertension Facial pressure Gout Hemoptysis Hypotension due to drugs Hypothyroidism Hypothyroidism (acquired) Mixed hyperlipidemia Normocytic normochromic anemia Obstructive sleep apnea Obstructive sleep apnea (adult) (pediatric) He has a dental apparatus which he does not have with him and no longer uses a CPAP Peripheral neuropathy Pneumonia due to 2019 novel coronavirus Shortness of Breath Tachycardia Type 2 diabetes mellitus with peripheral neuropathy Surgical History Surgical History History of bilateral cataract extraction History of colonoscopy with polypectomy (03/2013) Family History Family History Sibling Diabetes mellitus Father Family history of cardiovascular disease Acute myocardial infarction Mother Alzheimer's dementia Social History Social History Social History: Surrogate decision maker: Moni Theodore. Code status: Full code. Smoking packs per day: 2 Smoking cigarettes per day: 40.0 Years smoked: 35 Smoking pack-years: 70.00 Smoking status: Former smoker Tobacco type: cigarettes Smoking end date: 07/18/96 Alcohol intake: former Substance use: never Substance use type: does not use Living arrangements: with family Additional living arrangements comments: The patient lives in his own home in [place]. He is single, no children. Additional occupation/education comments: Retired railroad. Spiritual care concerns: No Agree to blood products: Yes Meds Home Medications and Allergies Home Medications Medication Instructions Recorded Confirmed Type allopurinol 300 mg tablet 300 mg PO DAILY #90 tabs 03/24/21 05/18/22 Rx levothyroxine 50 mcg capsule 50 mcg PO DAILY #90 caps 04/12/22 05/18/22 Rx linagliptin 5 mg tablet (Tradjenta) 5 mg PO QAM #30 tabs 05/10/22 05/18/22 Rx amlodipine 5 mg tablet 5 mg PO DAILY 05/18/22 05/18/22 History omeprazole 20 mg capsule,delayed 20 mg PO DAILY 05/18/22 05/18/22 History release quinapril 20 mg tablet 20 mg PO DAILY 05/18/22 05/18/22 History simvastatin 20 mg tablet 20 mg PO DAILY 05/18/22 05/18/22 History tamsulosin 0.4 mg capsule 0.4 mg PO DAILY 05/18/22 05/18/22 History venlafaxine 150 mg 150 mg PO DAILY 05/18/22 05/18/22 History capsule,extended release 24 hr venlafaxine 75 mg capsule,extended 75 mg PO DAILY 05/18/22 05/18/22 History release 24 hr rivaroxaban 20 mg tablet (Xarelto) 20 mg PO DAILY #30 tabs 05/24/22 05/25/22 Rx Allergies Allergy/AdvReac Type Severity Reaction Status Date / Time colistin [Coly-Mycin S] Allergy Unknown stated Verified 05/25/22 08:54 allergic hydrocortisone [Coly-Mycin S] Allergy Unknown stated Verified 05/25/22 08:54 allergic neomycin Allergy Unknown poss
--- NOTE | 2022-05-25 09:03 | WPDANESEPPF ---
Anes - Initial Pre Proc Eval Procedure: Operation Date: 05/25/22 10:15 Proposed Procedures p Esophagogastroduodenoscopy & Colonoscopy - Peter Andrade MD Date/Time: 05/25/22 09:03 Surgeon: Peter Andrade MD Pre Op Diagnosis: occult GI bleed Patient Data Age: 76 Gender: M Height: 1.8 m Weight: 104.7 kg Last Vital Signs Temp 36.1 C L 05/25/22 08:56 Pulse 102 H 05/25/22 08:56 Resp 18 05/25/22 08:56 BP 131/76 05/25/22 08:56 Pulse Ox 100 05/25/22 08:56 O2 Del Method Room Air 05/25/22 08:56 Allergies Allergy/AdvReac Type Severity Reaction Status Date / Time colistin [Coly-Mycin S] Allergy Unknown stated Verified 05/25/22 08:54 allergic hydrocortisone [Coly-Mycin S] Allergy Unknown stated Verified 05/25/22 08:54 allergic neomycin Allergy Unknown possible Verified 05/25/22 08:54 allergy, red eyes and eac edema thonzonium bromide Allergy Unknown stated Verified 05/25/22 08:54 [Coly-Mycin S] allergic Home Medications Medication Instructions Recorded Confirmed Type allopurinol 300 mg tablet 300 mg PO DAILY #90 tabs 03/24/21 05/18/22 Rx levothyroxine 50 mcg capsule 50 mcg PO DAILY #90 caps 04/12/22 05/18/22 Rx linagliptin 5 mg tablet (Tradjenta) 5 mg PO QAM #30 tabs 05/10/22 05/18/22 Rx amlodipine 5 mg tablet 5 mg PO DAILY 05/18/22 05/18/22 History omeprazole 20 mg capsule,delayed 20 mg PO DAILY 05/18/22 05/18/22 History release quinapril 20 mg tablet 20 mg PO DAILY 05/18/22 05/18/22 History simvastatin 20 mg tablet 20 mg PO DAILY 05/18/22 05/18/22 History tamsulosin 0.4 mg capsule 0.4 mg PO DAILY 05/18/22 05/18/22 History venlafaxine 150 mg 150 mg PO DAILY 05/18/22 05/18/22 History capsule,extended release 24 hr venlafaxine 75 mg capsule,extended 75 mg PO DAILY 05/18/22 05/18/22 History release 24 hr rivaroxaban 20 mg tablet (Xarelto) 20 mg PO DAILY #30 tabs 05/24/22 05/25/22 Rx Patient hx anesthesia problems: none Family hx anesthesia problems: none Results Review: All pre-operative results and documents have been reviewed as part of the pre-operative evaluation. REPLACED BY [facility] Past Medical History Medical History Acute respiratory failure with hypoxia Blood loss anemia Depression with anxiety Difficulty swallowing Essential (primary) hypertension Facial pressure Gout Hemoptysis Hypotension due to drugs Hypothyroidism Hypothyroidism (acquired) Mixed hyperlipidemia Normocytic normochromic anemia Obstructive sleep apnea Obstructive sleep apnea (adult) (pediatric) He has a dental apparatus which he does not have with him and no longer uses a CPAP Peripheral neuropathy Pneumonia due to 2019 novel coronavirus Shortness of Breath Tachycardia Type 2 diabetes mellitus with peripheral neuropathy Surgical History Surgical History History of bilateral cataract extraction History of colonoscopy with polypectomy (03/2013) Family History Family History Sibling Diabetes mellitus Father Family history of cardiovascular disease Acute myocardial infarction Mother Alzheimer's dementia Social History Social History Social History: Surrogate decision maker: Moni Theodore. Code status: Full code. Smoking packs per day: 2 Smoking cigarettes per day: 40.0 Years smoked: 35 Smoking pack-years: 70.00 Smoking status: Former smoker Tobacco type: cigarettes Smoking end date: 07/18/96 Alcohol intake: former Substance use: never Substance use type: does not use Living arrangements: with family Additional living arrangements comments: The patient lives in his own home in [place]. He is single, no children. Additional occupation/education comments: Retired railroad. Spiritual care concerns: No
[2022-05-25] MEDS: LACTATED RINGERS 1,000 ML 150 ML IV CONT (09:11)
[2022-05-25 09:41] LABS: Glucose Point of Care 158 mg/dl (65-105)
--- NOTE | 2022-05-25 10:00 | SUR.OPER ---
EGD START: 949; END: 950. COLONOSCOPY START: 958; END: 999.
[2022-05-25 10:10] VITALS: BP 92/54; PULSE 81; RESP 16; O2SAT 97
[2022-05-25 10:20] VITALS: BP 90/54; PULSE 77; RESP 17; O2SAT 96
[2022-05-25 10:30] VITALS: BP 99/57; PULSE 67; RESP 22; O2SAT 96
== END 2022-05-25 10:40 | disposition home or self-care (01) ==
PROVIDERS: PCP Family Medicine; Visit Provider Internal Medicine Gastroenterology
PROC: 0DJ08ZZ Inspection of Upper Intestinal Tract, Via Natural or Artificial Opening Endoscopic (ICD-10-PCS; CPT 43235; principal; 2022-05-25 10:15)
DX: K92.1 Melena (principal); Z86.010 Personal history of colon polyps; I10 Essential (primary) hypertension; M10.9 Gout, unspecified; E03.9 Hypothyroidism, unspecified; E78.2 Mixed hyperlipidemia; G47.33 Obstructive sleep apnea (adult) (pediatric); E11.42 Type 2 diabetes mellitus with diabetic polyneuropathy; F41.8 Other specified anxiety disorders; Z79.84 Long term (current) use of oral hypoglycemic drugs; Z79.01 Long term (current) use of anticoagulants; Z87.891 Personal history of nicotine dependence; E66.9 Obesity, unspecified; Z68.32 Body mass index [BMI] 32.0-32.9, adult; Z85.72 Personal history of non-Hodgkin lymphomas
CPT/HCPCS: 45378; 43235; 82948; J2704; J7120

== ENCOUNTER 2022-06-25 00:50 | Day surgery (SDC) | payer MEDICARE, SELFPAY ==
[2022-06-16 13:21] VITALS: BMI 32.0
[2022-06-25 13:10] VITALS: BP 150/87; PULSE 92; RESP 20; TEMP 36.2; O2SAT 100; BMI 32.2
--- NOTE | 2022-06-25 13:19 | PM.HPGS ---
History of Present Illness History of Present Illness Consent: Risks, benefits, and alternatives have been discussed and questions answered. Patient agrees to proceed with procedure. Chief complaint: Occult GI Bleed Narrative: Francis Johnson is a 76 year old male Presents for colonoscopy. Patient found to have occult blood in stool. Patient has a distant history of colon polyps. Attempts were made to do colonoscopy 1 month ago but limited by poor preparation. Patient returns today after additional perforation. Denies any pain or obvious bleeding. Patient is chronically on Xarelto anticoagulation which likely contributes to occult blood in stool. He does have a past medical history of lymphoma. EGD 1 month ago was unremarkable. Plan for colonoscopy at this time because of occult blood in stool and history of colon polyps Review of Systems Review of Systems: Review of systems noncontributory [facility] Past Medical History Medical History Acute respiratory failure with hypoxia Blood loss anemia Depression with anxiety Difficulty swallowing Essential (primary) hypertension Facial pressure Gout Hemoptysis Hypotension due to drugs Hypothyroidism Hypothyroidism (acquired) Mixed hyperlipidemia Normocytic normochromic anemia Obstructive sleep apnea Obstructive sleep apnea (adult) (pediatric) He has a dental apparatus which he does not have with him and no longer uses a CPAP Peripheral neuropathy Pneumonia due to 2019 novel coronavirus Shortness of Breath Tachycardia Type 2 diabetes mellitus with peripheral neuropathy Surgical History Surgical History History of bilateral cataract extraction History of colonoscopy with polypectomy (03/2013) Family History Family History Sibling Diabetes mellitus Father Family history of cardiovascular disease Acute myocardial infarction Mother Alzheimer's dementia Social History Social History Social History: Surrogate decision maker: Moni Theodore. Code status: Full code. Smoking packs per day: 2 Smoking cigarettes per day: 40.0 Years smoked: 35 Smoking pack-years: 70.00 Smoking status: Former smoker Tobacco type: cigarettes Smoking end date: 07/18/96 Alcohol intake: former Substance use: never Substance use type: does not use Living arrangements: with family Additional living arrangements comments: The patient lives in his own home in [place]. He is single, no children. Additional occupation/education comments: Retired railroad. Spiritual care concerns: No Agree to blood products: Yes Meds Home Medications and Allergies Home Medications Medication Instructions Recorded Confirmed Type allopurinol 300 mg tablet 300 mg PO DAILY #90 tabs 03/24/21 06/16/22 Rx levothyroxine 50 mcg capsule 50 mcg PO DAILY #90 caps 04/12/22 06/16/22 Rx amlodipine 5 mg tablet 5 mg PO DAILY 05/18/22 05/18/22 History omeprazole 20 mg capsule,delayed 20 mg PO DAILY 05/18/22 06/16/22 History release quinapril 20 mg tablet 20 mg PO DAILY 05/18/22 06/16/22 History tamsulosin 0.4 mg capsule 0.4 mg PO DAILY 05/18/22 06/16/22 History venlafaxine 150 mg 150 mg PO DAILY 05/18/22 06/16/22 History capsule,extended release 24 hr venlafaxine 75 mg capsule,extended 75 mg PO DAILY 05/18/22 06/16/22 History release 24 hr rivaroxaban 20 mg tablet (Xarelto) 20 mg PO DAILY #30 tabs 05/24/22 06/16/22 Rx simvastatin 20 mg tablet 20 mg PO DAILY #90 tabs 05/27/22 06/16/22 Rx peg 3350-electrolytes 236 240 ml PO Q10M #4,000 mL 05/31/22 06/16/22 Rx gram-22.74 gram-6.74 gram-5.86 gram solution (Golytely) linagliptin 5 mg tablet (Tradjenta) 5 mg PO QAM #30 tabs 06/04/22 06/16/22 Rx Allergies Allergy/AdvReac Type Severity Reaction Stat
[2022-06-25] MEDS: LACTATED RINGERS 1,000 ML 150 ML IV CONT (13:34)
[2022-06-25 13:44] LABS: Glucose Point of Care 110 mg/dl (65-105)
--- NOTE | 2022-06-25 13:46 | WPDANESEPPF ---
Anes - Initial Pre Proc Eval Procedure: Operation Date: 06/25/22 14:15 Proposed Procedures p Colonoscopy - Peter Andrade MD Date/Time: 06/25/22 13:46 Surgeon: Peter Andrade MD Pre Op Diagnosis: Occult GI Bleed Patient Data Age: 76 Gender: M Height: 1.8 m Weight: 104.9 kg Last Vital Signs Temp 97.1 F L 06/25/22 13:10 Pulse 92 06/25/22 13:10 Resp 20 06/25/22 13:10 BP 150/87 H 06/25/22 13:10 Pulse Ox 100 06/25/22 13:10 O2 Del Method Room Air 06/25/22 13:10 Allergies Allergy/AdvReac Type Severity Reaction Status Date / Time colistin [Coly-Mycin S] Allergy Unknown stated Verified 05/25/22 08:54 allergic hydrocortisone [Coly-Mycin S] Allergy Unknown stated Verified 05/25/22 08:54 allergic neomycin Allergy Unknown possible Verified 05/25/22 08:54 allergy, red eyes and eac edema thonzonium bromide Allergy Unknown stated Verified 05/25/22 08:54 [Coly-Mycin S] allergic Home Medications Medication Instructions Recorded Confirmed Type allopurinol 300 mg tablet 300 mg PO DAILY #90 tabs 03/24/21 06/16/22 Rx levothyroxine 50 mcg capsule 50 mcg PO DAILY #90 caps 04/12/22 06/16/22 Rx amlodipine 5 mg tablet 5 mg PO DAILY 05/18/22 05/18/22 History omeprazole 20 mg capsule,delayed 20 mg PO DAILY 05/18/22 06/16/22 History release quinapril 20 mg tablet 20 mg PO DAILY 05/18/22 06/16/22 History tamsulosin 0.4 mg capsule 0.4 mg PO DAILY 05/18/22 06/16/22 History venlafaxine 150 mg 150 mg PO DAILY 05/18/22 06/16/22 History capsule,extended release 24 hr venlafaxine 75 mg capsule,extended 75 mg PO DAILY 05/18/22 06/16/22 History release 24 hr rivaroxaban 20 mg tablet (Xarelto) 20 mg PO DAILY #30 tabs 05/24/22 06/16/22 Rx simvastatin 20 mg tablet 20 mg PO DAILY #90 tabs 05/27/22 06/16/22 Rx peg 3350-electrolytes 236 240 ml PO Q10M #4,000 mL 05/31/22 06/16/22 Rx gram-22.74 gram-6.74 gram-5.86 gram solution (Golytely) linagliptin 5 mg tablet (Tradjenta) 5 mg PO QAM #30 tabs 06/04/22 06/16/22 Rx Laboratory Tests 06/25/22 13:40 POC Capillary Glucose 110 mg/dl H mg/dl (65-105) Patient hx anesthesia problems: none Family hx anesthesia problems: none Results Review: All pre-operative results and documents have been reviewed as part of the pre-operative evaluation. [facility] Past Medical History Medical History Acute respiratory failure with hypoxia Blood loss anemia Depression with anxiety Difficulty swallowing Essential (primary) hypertension Facial pressure Gout Hemoptysis Hypotension due to drugs Hypothyroidism Hypothyroidism (acquired) Mixed hyperlipidemia Normocytic normochromic anemia Obstructive sleep apnea Obstructive sleep apnea (adult) (pediatric) He has a dental apparatus which he does not have with him and no longer uses a CPAP Peripheral neuropathy Pneumonia due to 2019 novel coronavirus Shortness of Breath Tachycardia Type 2 diabetes mellitus with peripheral neuropathy Surgical History Surgical History History of bilateral cataract extraction History of colonoscopy with polypectomy (03/2013) Family History Family History Sibling Diabetes mellitus Father Family history of cardiovascular disease Acute myocardial infarction Mother Alzheimer's dementia Social History Social History Social History: Surrogate decision maker: Moni Theodore. Code status: Full code. Smoking packs per day: 2 Smoking cigarettes per day: 40.0 Years smoked: 35 Smoking pack-years: 70.00 Smoking status: Former smoker Tobacco type: cigarettes Smoking end date: 07/18/96 Alcohol intake: former Substance use: never Substance use type: does not use Living arrangements: with family A
[2022-06-25] MEDS: SIMETHICONE ORAL SUSPENSION 20 MG/0.3 ML 30 ML BOTTLE 0.6 ML IRRIGATION (14:01)
[2022-06-25 14:13] VITALS: BP 96/61; PULSE 89; RESP 20; O2SAT 96
[2022-06-25 14:23] VITALS: BP 107/89; PULSE 87; RESP 20; O2SAT 98
[2022-06-25 14:33] VITALS: BP 122/69; PULSE 85; RESP 20; O2SAT 97
== END 2022-06-25 14:40 | disposition home or self-care (01) ==
PROVIDERS: PCP Family Medicine; Visit Provider Internal Medicine Gastroenterology
PROC: 0DJD8ZZ Inspection of Lower Intestinal Tract, Via Natural or Artificial Opening Endoscopic (ICD-10-PCS; CPT 45378; principal; 2022-06-25 14:15)
DX: R19.5 Other fecal abnormalities (principal); D12.5 Benign neoplasm of sigmoid colon; K64.8 Other hemorrhoids; K57.30 Diverticulosis of large intestine without perforation or abscess without bleeding; Z79.01 Long term (current) use of anticoagulants; Z85.79 Personal history of other malignant neoplasms of lymphoid, hematopoietic and related tissues; Z87.891 Personal history of nicotine dependence; E03.9 Hypothyroidism, unspecified; I10 Essential (primary) hypertension; E11.42 Type 2 diabetes mellitus with diabetic polyneuropathy; E78.5 Hyperlipidemia, unspecified
CPT/HCPCS: 45385; 82948; 88305; J2704; J7120

== ENCOUNTER 2022-09-09 12:41 | Outpatient (CLI) | payer MEDICARE, SELFPAY ==
--- NOTE | ~2022-09-09 | CT_ITS ---
EXAMINATION:CT chest high resolution wo sd DATE: 09/09/2022 13:11 INDICATION: Interstitial lung disease. TECHNIQUE: Computed tomography (CT) of the chest was performed without intravenous contrast. Automate d exposure control and iterative reconstruction technique were employed. The dose-length product (DLP ) was 770.84 mGy-cm. COMPARISON: Chest CT 05/20/2021 FINDINGS: There is chronic elevation of left hemidiaphragm. There is peripheral septal thickening ass ociated with groundglass opacities involving all lobes. Subpleural bands are noted bilaterally. There is mild bronchiectasis in the inferior lungs. Calcified bilateral lung nodules and calcified hilar a nd mediastinal lymph nodes are consistent with old granulomatous disease. No pleural effusion. The he art size is normal. There are coronary artery calcifications. No pericardial effusion. There is mild bilateral gynecomastia. There is moderate thoracic spondylosis. There are bridging endplate osteophyt es at multiple levels in the spine, consistent with diffuse idiopathic skeletal hyperostosis (DISH). There is mild chronic height loss of multiple vertebral bodies. IMPRESSION: 1. Chronic interstitial lung disease in a pattern of usual interstitial pneumonia (UIP) versus nonspe cific interstitial pneumonia (NSIP). Reviewed, dictated and finalized at location A. OR NETWORK SECURITY ENGINEER IMPRESSION: 1. Chronic interstitial lung disease in a pattern of usual interstitial pneumon ia (UIP) versus nonspecific interstitial pneumonia (NSIP).
== END 2022-09-09 12:42 | disposition home or self-care (01) ==
PROVIDERS: PCP Family Medicine; Visit Provider Nurse Practitioner Family
DX: J84.9 Interstitial pulmonary disease, unspecified (principal)
CPT/HCPCS: 71250

== ENCOUNTER 2022-09-16 10:02 | Outpatient (CLI) | payer MEDICARE, SELFPAY ==
--- NOTE | ~2022-09-16 | NM_ITS ---
EXAMINATION: NM dary stress w perfusion DATE: 09/16/2022 12:43 INDICATION: Other forms of dyspnea. TECHNIQUE: Rest images were obtained following intravenous administration of 10.0 mCi Tc99m tetrofosm in (Myoview). The patient was infused intravenously with Lexiscan (regadenoson). Then, 33.3 mCi Tc99m tetrofosmin (Myoview) was administered intravenously, and supine and prone stress images were obtain ed. Data was reconstructed into short axis and horizontal and vertical long axis SPECT images. Gated SPECT images were also obtained. COMPARISON: Chest CT 09/09/2022 FINDINGS: There is no definite reversible or fixed perfusion abnormality to suggest ischemia or infar ction. There is no segmental wall motion abnormality. Left ventricular ejection fraction measures 6 8%. IMPRESSION: 1. No definite ischemia or infarct. 2. Normal left ventricular ejection fraction measuring 68%. Reviewed, dictated and finalized at location A. E OPERATIONS ASSOCIATE
--- NOTE | 2022-09-16 10:44 | EST_ITS ---
Patient Info Name: Francis Johnson Age: 76 years : 1945 Gender: Male Ht: 71 in Wt: 240 lbs BSA: 2.37 m2 HR: 68 bpm BP: 142 / 78 mmHg Heart Rhythm: Sinus Rhythm Exam Date: 09/16/2022 11:24 AM Exam Location: [facility] Stress Patient Status: Outpatient Admit Date: 09/16/2022 Staff Ordering Physician: Nadeem Oglesby DO Attending Provider: Nadeem Oglesby DO Exercise Technologist: Mariah Cagle CT Exercise Physician: Carlos Manuel Elena DO Exam Type: CA stress dary w NM Study Info Indications R06.09 - Other forms of dyspnea A regadenoson stress test was performed. Summary 1. 1. Negative lexiscan stress test for ischemic ST changes by ECG criteria. 2. 2. Hypertensive response to lexiscan. 3. 3. Nuclear scan to follow and will be reported separately. Please correlate with it. 4. 4. Patient informed of the above results. Protocol: Lexiscan Stress ECG Details Stage: REST Duration (min): 2 min : 15 sec HR (bpm): 69 SBP (mmHg): 142 DBP (mmHg): 78 Stage: REST Duration (min): 8 min : 10 sec HR (bpm): 72 SBP (mmHg): 142 DBP (mmHg): 78 Stage: STAGE 1 Duration (min): 1 min : 0 sec HR (bpm): 89 SBP (mmHg): 142 DBP (mmHg): 78 Stage: RECOVERY Duration (min): 1 min : 0 sec HR (bpm): 99 SBP (mmHg): 254 DBP (mmHg): 76 Stage: RECOVERY Duration (min): 2 min : 0 sec HR (bpm): 83 SBP (mmHg): 212 DBP (mmHg): 80 Stage: RECOVERY Duration (min): 3 min : 0 sec HR (bpm): 78 SBP (mmHg): 194 DBP (mmHg): 77 Stage: RECOVERY Duration (min): 3 min : 1 sec HR (bpm): 77 SBP (mmHg): 194 DBP (mmHg): 77 Rest HR: 72 bpm Peak HR: 99 bpm Rest Sys BP: 142 mmHg Peak Sys BP: 254 mmHg Max Pred HR: 145 bpm % Max Pred HR: 68 % Target HR: 123 bpm Max RPP: 25,146 bpm*mmHg BP Response: Patient exhibited a hypertensive response with stress Termination Reason: Completed protocol Cardiac Symptoms: Shortness of breath, Stomach discomfort Total Time: 1 min : 0 sec Rest Judd BP: 78 mmHg Peak Judd BP: 76 mmHg Total Dose: 0.4 mg Resting ECG Sinus rhythm. Stress ECG No ST changes. Arrhythmias None. Report Signatures
== END 2022-09-16 10:03 | disposition home or self-care (01) ==
LOC: ANHCARD 10:04
PROVIDERS: PCP Family Medicine; Visit Provider Family Medicine
DX: R06.09 Other forms of dyspnea (principal); I10 Essential (primary) hypertension
CPT/HCPCS: 78452; 93017; A9502; J2785

== ENCOUNTER 2022-12-02 12:02 | Outpatient (CLI) | payer MEDICARE, SELFPAY ==
--- NOTE | ~2022-12-02 | XR_ITS ---
XR cervical spine 4-5V 12/02/2022 12:28 Indication: Cervicalgia Procedure: 4 view cervical spine Comparison: 02/21/2016 Findings: There is moderate degenerative spondylosis at C5-6 and C6-7. Vertebral body heights are rodger ntained. No prevertebral soft tissue swelling. There is mild multilevel uncinate and facet hypertroph y. Lung apices are normal. Odontoid process is normal. Impression: 1: Moderate cervical spondylosis. Reviewed, dictated and finalized at location L. Impression: 1: Moderate cervical spondylosis.
== END 2022-12-02 12:03 | disposition home or self-care (01) ==
LOC: ANHIMG 12:11
PROVIDERS: PCP Family Medicine; Visit Provider Family Medicine
DX: M47.892 Other spondylosis, cervical region (principal)
CPT/HCPCS: 72050

== ENCOUNTER 2023-03-30 10:41 | Outpatient (CLI) | payer MEDICARE, SELFPAY ==
--- NOTE | ~2023-03-30 | CT_ITS ---
Clinical Indication: Lymphoma restaging CT Scan of the Chest, Abdomen, and Pelvis with Contrast: Technique: Contiguous sections were acquired throughout the chest, abdomen, and pelvis after intraven ous administration of 100 cc of Omnipaque 350. Dose reduction technique was used on this scan by avril eldering automated exposure control and iterative reconstruction technique. The dose-length product (DL P) was 1521.28 mGy-cm. COMPARISON: 09/09/2022, 04/06/2022 Findings: There is no evidence of any significant mediastinal, hilar or axillary lymphadenopathy. Coronary lasha ry calcification are present. The mediastinal soft tissues otherwise appear normal. There is no evidence of pleural or pericardial effusion. There is minimal, predominantly peripheral, chronic interstitial change. No suspicious pulmonary nodu le seen. The liver, spleen, pancreas, gallbladder, adrenals and kidneys are within normal limits. There are at herosclerotic calcifications of the aorta. No lymphadenopathy. No bowel obstruction or bowel wall thickening. There is no evidence to suggest acute appendicitis. Urinary bladder is unremarkable. Prostate gland is mildly enlarged. No pelvic mass seen otherwise. No ascites. Impression: No pathologic lymphadenopathy identified. No CT evidence for active malignancy or metastatic disease. Mild chronic pulmonary interstitial disease. Reviewed, dictated and finalized at [facility]. Impression: No pathologic lymphadenopathy identified. No CT evidence for active malignancy or metastatic disease. Mild chronic pulmonary interstitial disease.
[2023-03-30 11:01] LABS: Estimated Glomerular Filt Rate > 60
== END 2023-03-30 10:42 ==
PROVIDERS: PCP Family Medicine; Visit Provider Internal Medicine Medical Oncology
DX: C83.00 Small cell B-cell lymphoma, unspecified site (principal); J84.9 Interstitial pulmonary disease, unspecified
CPT/HCPCS: 71260; 74177; Q9967

== ENCOUNTER 2023-04-06 08:40 | Outpatient (CLI) | payer MEDICARE, SELFPAY ==
--- NOTE | 2023-04-06 08:47 | ECHO_ITS ---
Patient Info Name: Francis Johnson Age: 77 years : 1945 Gender: Male Ht: 71 in Wt: 240 lbs BSA: 2.37 m2 HR: 75 bpm BP: 150 / 90 mmHg Heart Rhythm: Sinus Rhythm Technical Quality: Fair Exam Date: 04/06/2023 9:01 AM Exam Location: [facility] Patient Status: Outpatient Admit Date: 04/06/2023 Staff Ordering Physician: Reynaldo Benitez APRN Bakery Products Checker: Irma Milelr RDCS Attending Provider: Reynaldo Benitez APRN Referring Physician: Emmanuel JUNE; Exam Type: CA echo doppler color flow Study Info Indications R06.09 - Other forms of dyspnea Complete two-dimensional, color flow and Doppler transthoracic echocardiogram is performed. Strain analysis performed. Summary 1. Complete two-dimensional, color flow and Doppler transthoracic echocardiogram is performed. 2. Left ventricular chamber dimension is normal. 3. Left ventricular systolic function is normal, estimated at 60-65%. 4. There is mild concentric increased left ventricular wall thickness. 5. The left ventricular diastolic function is grade I diastolic dysfunction. 6. E/e' 9 is minimally elevated. 7. Global longitudinal strain is normal at -17.3%. 8. There is mild aortic valve sclerosis. 9. No pulmonary hypertension, estimated pulmonary arterial systolic pressure is 20 mmHg. Left Ventricle E/e' 9 is minimally elevated. Global longitudinal strain is normal at -17.3%. Left ventricular chamber dimension is normal. Left ventricular systolic function is normal, estimated at 60-65%. There is mild concentric increased left ventricular wall thickness. The left ventricular diastolic function is grade I diastolic dysfunction. Right Ventricle Right ventricular systolic function is normal and with normal TAPSE 2.2 cm. Right ventricular chamber dimension is normal. Left Atria Left atrial chamber dimension is normal. Right Atria Right atrial chamber dimension is normal. Aortic Valve The aortic valve is trileaflet. There is mild aortic valve sclerosis. There is no aortic valve stenosis. There is no aortic valve regurgitation. Pulmonic Valve There is no pulmonic regurgitation. Mitral Valve There is no mitral valve stenosis. There is no mitral valve regurgitation. Tricuspid Valve There is no tricuspid valve regurgitation. No pulmonary hypertension, estimated pulmonary arterial systolic pressure is 20 mmHg. Pericardium/Pleural There is no pericardial effusion. Inferior Vena Cava Normal inferior vena cava with >50% collapse upon inspiration consistent with normal right atrial pressure, 5 mmHg. Aorta The aortic root size at the sinus of Valsalva is normal. Left Ventricular Outflow Tract Name Value Normal LVOT 2D LVOT Diameter 2.0 cm LVOT Doppler LVOT Peak Gradient 2 mmHg LVOT Mean Gradient 2 mmHg LVOT VTI 18 cm LVOT VTI/AV VTI Ratio 0.8 LVOT Stroke Volume 55 ml LVOT CO 3.7 l/min LVOT CI 1.6 l/min/m2 Pulmonic Valve Name
== END 2023-04-06 08:41 | disposition home or self-care (01) ==
LOC: ANHCARD 08:41
PROVIDERS: PCP Family Medicine; Visit Provider Nurse Practitioner Family
DX: R06.09 Other forms of dyspnea (principal)
CPT/HCPCS: 93306

== ENCOUNTER 2023-12-30 10:16 | Outpatient (CLI) | payer MEDICARE, SELFPAY ==
[2023-12-30 14:30] LABS: Hemoglobin A1C 6.4 % (<5.7)
[2023-12-30 14:44] LABS: Creatinine Urine 70.8 mg/dL
[2023-12-30 14:53] LABS: MALB Creatinine Ratio 17.4 mg/g (0-30); Microalbumin Urine Random 12.3 mg/L (0-16.7)
== END 2023-12-30 10:17 | disposition home or self-care (01) ==
LOC: ANHGOSHLAB 10:18
PROVIDERS: PCP Family Medicine; Visit Provider Family Medicine
DX: E11.9 Type 2 diabetes mellitus without complications (principal); Z13.29 Encounter for screening for other suspected endocrine disorder
CPT/HCPCS: 36415; 82043; 83036; 84443

== ENCOUNTER 2024-04-17 10:37 | Outpatient (CLI) | payer MEDICARE, SELFPAY ==
[2024-04-17 15:00] LABS: Alanine Aminotransferase 19 U/L (6-50); Albumin Level 4.1 g/dL (3.5-5.1); Alkaline Phosphatase 71 U/L (38-126); Anion Gap 6 mmol/L (4-12); Aspartate Amino Transferase 40 U/L (17-59); Bilirubin,Total 0.6 mg/dL (0.2-1.3); Blood Urea Nitrogen 10 mg/dL (9-20); Calcium 8.9 mg/dL (8.4-10.2); Carbon Dioxide 31 mmol/L (22-30); Chloride 100 mmol/L (98-107); Estimated Glomerular Filt Rate > 60; Glucose 102 mg/dL (65-110); Potassium 4.3 mmol/L (3.4-5.0); Sodium 137 mmol/L (137-145)
[2024-04-17 16:07] LABS: Hemoglobin A1C 6.9 % (<5.7)
== END 2024-04-17 10:38 | disposition home or self-care (01) ==
LOC: ANHGOSHLAB 10:39
PROVIDERS: PCP Family Medicine; Visit Provider Family Medicine
DX: E11.9 Type 2 diabetes mellitus without complications (principal); Z13.228 Encounter for screening for other metabolic disorders
CPT/HCPCS: 36415; 80053; 83036

== ENCOUNTER 2024-05-28 14:56 | Outpatient (CLI) | payer MEDICARE, SELFPAY ==
--- NOTE | ~2024-05-28 | MR_ITS ---
EXAMINATION: MR cervical spine wo con DATE: 05/28/2024 15:46 INDICATION: Radiculopathy, cervical region. TECHNIQUE: Magnetic resonance imaging (MRI) of the cervical spine was performed without intravenous c ontrast. COMPARISON: Cervical spine radiographs 12/02/2022 FINDINGS: Alignment is normal. There is mild chronic anterior wedging of C5, C6, C7, and T1 vertebral bodies. There is moderately decreased disc height at C5-C6, C6-C7, and C7-T1. The spinal cord signal intensity is normal. The following disc levels are specifically discussed: C2-C3: There is a central protrusion. There is moderate left uncovertebral joint osteoarthritis. Ther e is moderate right and severe left facet joint osteoarthritis. There is mild left neural foraminal s tenosis. There is mild central canal stenosis. C3-C4: The disc is bulging. There is mild bilateral uncovertebral joint osteoarthritis. There is junaid re right and moderate left facet joint osteoarthritis. There is mild left neural foraminal stenosis. There is mild central canal stenosis. C4-C5: The disc does not extend beyond the endplate margin. There is no uncovertebral joint osteoarth ritis. There is mild bilateral facet joint osteoarthritis. There is no neural foraminal stenosis. The re is no central canal stenosis. C5-C6: The disc is bulging. There is severe bilateral uncovertebral joint osteoarthritis. There is mi ld bilateral facet joint osteoarthritis. There is mild right and moderate left neural foraminal steno sis. There is mild central canal stenosis with ventral indentation of the spinal cord. C6-C7: The disc is bulging. There is moderate and mild left uncovertebral joint osteoarthritis. There is mild bilateral facet joint osteoarthritis. There is mild bilateral neural foraminal stenosis. The re is mild central canal stenosis with ventral indentation of the spinal cord. C7-T1: The disc is bulging. There is moderate bilateral uncovertebral joint osteoarthritis. There is moderate bilateral facet joint osteoarthritis. There is mild bilateral neural foraminal stenosis. The re is mild central canal stenosis. IMPRESSION: 1. Moderate cervical spondylosis. Reviewed, dictated and finalized at location A. [employer]
== END 2024-05-28 14:57 | disposition home or self-care (01) ==
LOC: GOSHIMG 14:58
PROVIDERS: PCP Family Medicine; Visit Provider Family Medicine
DX: M47.22 Other spondylosis with radiculopathy, cervical region (principal)
CPT/HCPCS: 72141

== ENCOUNTER 2024-11-09 13:46 | Outpatient (CLI) | payer MEDICARE, SELFPAY ==
--- NOTE | ~2024-11-09 | US_ITS ---
Bilateral neck ULTRASOUND (Doppler ultrasound interrogation techniques used as needed for this exam.) Ordering provider: Augusto Quintana MD History: . R22.1 - Localized swelling, mass and lump, neck . Comparison: None. FINDINGS/impression: Hypoechoic areas in the right side of the neck with the largest measuring 1.2 x 0.6 x 1 cm. Hypoechoic area in the right submandibular gland area measuring 1 x 0.9 x 1.1 cm. Another area is see n on the left side of the neck measuring 2.7 x 1.3 x 2 cm. These areas are most likely lymph nodes. Follow-up and further evaluation advised. Reviewed, dictated and finalized at location A.
== END 2024-11-09 13:47 | disposition home or self-care (01) ==
LOC: MICIMG 13:47
PROVIDERS: PCP Family Medicine; Visit Provider Family Medicine
DX: K11.9 Disease of salivary gland, unspecified (principal); R22.1 Localized swelling, mass and lump, neck; Z85.79 Personal history of other malignant neoplasms of lymphoid, hematopoietic and related tissues
CPT/HCPCS: 76536

== ENCOUNTER 2024-12-25 10:13 | Outpatient (CLI) | payer MEDICARE, SELFPAY ==
--- NOTE | ~2024-12-25 | US_ITS ---
EXAMINATION: US biopsy st neck thorax DATE: 12/25/2024 11:17 INDICATION: Generalized enlarged cervical lymph nodes TECHNIQUE: The procedure including the risks and benefits was discussed with the patient. Risks discu ssed included bleeding and infection. The patient understood the risks and agreed to proceed. Ultraso und of the left and right neck was obtained. The largest lymph node at the left neck was chosen for b iopsy. The skin overlying the left neck was prepped and draped in usual sterile fashion. Anesthetic was administered with 1% lidocaine subcutaneously. An 18 gauge core biopsy needle was advanced under continuous ultrasound observation to the lesion of interest. 8 core biopsy specimens were obtained, 5 placed in RPMI media and 3 in formalin. The needle was removed and the entry site was cleaned and dressed. Post procedure ultrasound demonstrated no hemorrhage. FINDINGS: Ultrasound images demonstrate multiple enlarged bilateral cervical lymph nodes. Subsequent images demonstrate biopsy needle advanced into the largest lymph node seen in the left neck which heather sured 2.9 x 1.9 x 1.4 cm. IMPRESSION: 1. Successful Ultrasound-guided biopsy of the largest 2.9 x 1.9 x 1.4 cm left jugular chain lymph nod e. Reviewed, dictated and finalized at location A. IMPRESSION: 1. Successful Ultrasound-guided biopsy of the largest 2.9 x 1.9 x 1.4 cm left j ugular chain lymph node.
--- OUTSIDE RECORDS SUMMARY | 2024-12-25 11:10 | XMS_ITS | Referral Summary ---
Author Organization [facility] Address [address] [place] [id number] Care Team Providers Care Chin Strap Sewer Name Role Phone Saul Melvin DO Unavailable [phone] Nadeem Oglesby DO Primary Care Provider [phone] Encounters Date Type Department Care Team Description 11/27/2024 Orders Only [facility] Physicians [facility] Oncology [address] [place] [address] [address] [place] [address] ProviderNikkie MD 11/23/2024 8:15 AM CDT Office Visit [facility] Oncology [address] [place] [address] [address] [place] [address] Saul Melvin DO Lymphoma, 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 Orders Only [facility] Oncology [address] [place] [address] [address] [place] [id number] Saul Melvin DO Lymphoma, small lymphocytic (HCC) (Primary Dx) from Last 3 Months Allergies No known active allergies Medications allopurinoL (ZYLOPRIM) 300 mg tablet TK 1 T PO ONCE D 07/06/2019 Active levothyroxine (SYNTHROID) 50 mcg tablet TK 1 T PO ONCE A DAY 07/19/2019 Active metFORMIN XR (GLUCOPHAGE XR) 500 mg 24 hr tablet TK 2 TABLETS PO BID 07/09/2019 Active omeprazole (PriLOSEC) 20 mg capsule TK 1 C PO D 09/23/2019 Active quinapriL (ACCUPRIL) 20 mg tablet TK 1 T PO D 08/31/2019 Active simvastatin (ZOCOR) 20 mg tablet TK 1 T PO D 08/31/2019 Active venlafaxine (EFFEXOR) 75 mg tablet 07/17/2019 Active venlafaxine XR (EFFEXOR-XR) 150 mg 24 hr capsule TK 1 C PO D 07/06/2019 Active tamsulosin (FLOMAX) 0.4 mg extended release capsule TK 1 C PO QAM 09/22/2019 Active glimepiride (AMARYL) 2 mg tablet 08/03/2022 Active amLODIPine (NORVASC) 5 mg tablet Take 1 tablet (5 mg total) by mouth daily 08/01/2022 Active lisinopriL (PRINIVIL,ZESTR IL) 20 mg tablet Take 1 tablet (20 mg total) by mouth daily 07/27/2022 Active testosterone 12.5 mg/ 1.25 gram (1 %) gel in metered-dose pump APPLY 3 PUMPS ON THE SKIN DAILY 11/03/2022 Active tadalafiL (CIALIS) 5 mg tablet TAKE 1 TO 4 TABLETS BY MOUTH DAILY NEEDED 05/24/2024 Active gabapentin (NEURONTIN) 300 mg capsule 10/24/2024 Active Active Problems Problem Noted Date Diagnosed Date Pneumonia due to COVID-19 virus 05/30/2021 Lymphoma, small lymphocytic 10/18/2019 Neuropathy involving both lower extremities 12/16 Foot-drop 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 Never 05/25/2024 Q2: How many drinks containi ng alcohol do you have on a typical day when you are drinking? Patient does not drink Q3: How often do you have si x or more drinks on one occasion? Never 05/25/2024 Sex and Gender Information Value Date Recorded Sex Assigned at Not on file Legal Sex Male 1:01 AM [employer]ESS [employer] Gender Identity Male 02/14/2020 7:13 AM CDT Sexual Orientation Choose not to disclose 2019 9:16 AM CDT Last Filed Vital Signs Vital Sign Reading Time Taken Comments Blood Pressure 138/75 11/23/2024 8:12 AM CDT Pulse 81 11/23/2024 8:12 AM CDT Temperature 36.6 C (97.8 F) 11/23/2024 8:12 AM CDT Respiratory Rate 16 11/23/2024 8:12 AM CDT Oxygen Saturation 92% 11/23/2024 8:12 AM CDT Inhaled Oxygen Concentration - - Weight 114.8 kg (253 lb 1.4 oz) 11/23/2024 8:12 AM CDT Height 181.9 cm (5' 11.61) 11/23/2024 8:12 AM C DT w shoes Body Mass Index 34.7 11/23/2024 8:12 AM CDT Plan of Treatment Not on file Procedures Procedure Name Priority Date/Time Associated Diagnosis Comments LACTATE DEHYDROGENASE Routine 11/19/2024 11:46 AM CDT Lymphoma, small lymphocytic (HCC) ERYTHROCYTE SEDIMENTATION RATE Routine 11/19/2024 11:46 AM CDT Lymphoma, small lymphocytic (HCC) CBC WITH AUTO DIFFERENTIAL Routine 11/19/2024 11:46 AM CDT Lymphoma, small lymphocytic (HCC) COMPREHENSIVE METABOLIC PANEL Routine 11/19/2024 11:46 AM CDT Lymphoma, small lymphocytic (HCC) US SOFT TISSUE NECK Schedule Routine, Read Routine (OP Routine) 11/09/2024 11:49 AM CDT LACTATE DEHYDROGENASE Routine 11/02/2024 10:57 AM CDT Lymphoma, small lymphocytic (HCC) ERYTHROCYTE SEDIMENTATION RATE Routine 11/02/2024 10:57 AM CDT Lymphoma, small lymphocytic (HCC) COMPREHENSIVE METABOLIC PANEL Routine 11/02/2024 10:57 AM CDT Lymphoma, small lymphocytic (HCC) CBC WITH AUTO DIFFERENTIAL Routine 11/02/2024 10:57 AM CDT Lymphoma, small lymphocytic (HCC) CT CHEST ABDOMEN PELVIS W CONTRAST Schedule Routine, Read Routine (OP Routine) 03/30/2023 4:31 PM CDT FIT OCCULT BLOOD, FECAL Routine 03/27/2022 8:46 AM CDT HEPATITIS C ANTIBODY Routine 10/18/2019 10:46 AM CDT B-cell lymphoma, unspecified B-cell lymphoma type, unspecified body region (HCC) from Last 3 Months or Most Recently Relevant to Health Maintenance Results * CBC with auto differential (11/19/2024 11:46 AM CDT) WBC 7.3 3.4 - 10.8 x10E3/uL [facility] - 01 RBC 4.42 4.14 - 5.80 x10E6/uL [facility] - 01 Comment:Polychromasia presen t Hgb 13.6 13.0 - 17.7 g/dL [facility] - 01 Hct 41.9 37.5 - 51.0 % [facility] - 01 MCV 95 79 - 97 fL [facility] - 01 MCH 30.8 26.6 - 33.0 pg [facility] - 01 MCHC 32.5 31.5 - 35.7 g/dL [facility] - 01 Rdw 13.2 11.6 - 15.4 % [facility] - 01 Platelets 151 150 - 450 x10E3/uL [facility] - 01 Neutrophils pct 52 Not Estab. % [facility] - 01 Comment:Occasional metamyelo cyte seen on scan. Lymphs pct 36 Not Estab. % [facility] - 01 Monocytes pct 8 Not Estab. % [facility] - 01 Eosinophils pct 3 Not Estab. % [facility] - 01 Basophil pct 1 Not Estab. % [facility] - 01 Neutrophil abs 3.7 1.4 - 7.0 x10E3/uL [facility] - 01 Lymphs (Absolute) 2.7 0.7 - 3.1 x10E3/uL [facility] - 01 Monocyte abs 0.6 0.1 - 0.9 x10E3/uL [facility] - 01 Eosinophils, abs 0.3 0.0 - 0.4 x10E3/uL [facility] - 01 Basophils, abs 0.1 0.0 - 0.2 x10E3/uL [facility] - 01 Immature Granulocytes 0 Not Estab. % [facility] - 01 Immature Grans (Abs) 0.0 0.0 - 0.1 x10E3/uL [facility] - 01 Hematology Comments: Note: [facility] - 01 Comment:Verified by microsco pic examination. Blood 11/19/2024 11:4 6 AM CDT 11/19/2024 Narrative [facility] - 11/20/2024 9:10 AM CDT Performed at: [address] [place] [id number] Supervisor Wheel [employer]: Jeffery Herman PhD, Phone: [phone] Saul Melvin DO [facility] BLOOD ORDERABLES Final R esult Performing Organization Address [facility] de Phone Number [facility] * Erythrocyte sedimentation rate (11/19/2024 11:46 AM CDT) Erythrocyte sedimentation rate 8 0 - 30 mm/hr [facility] - Blood 11/19/2024 11:4 6 AM CDT 11/19/2024 Narrative [facility] - 11/20/2024 8:11 AM CDT Performed at: [address] [place] [id number] Super[employer]: Jeffery Herman PhD, Phone: [phone] Saul Melvin DO LAB BLOOD ORDERABLES Final R esult Performing Organization Address [facility] Co de Phone Number [facility] * Lactate dehydrogenase (LD) (11/19/2024 11:46 AM CDT) Lactate dehydrogenase (LDH) 206 121 - 224 IU/L [facility] - 01 Blood 11/19/2024 11:4 6 AM CDT 11/19/2024 Narrative [facility] - 11/20/2024 10:36 AM CDT Performed at: [address] [place] [address] [id number] Super[employer]: Jeffery Herman PhD, Phone: [phone] Saul Melvin DO LAB BLOOD ORDERABLES Final R esult [facility] - 01 * Comprehensive metabolic panel (11/19/2024 11:46 AM CDT) [facility] Glucose 97 70 - 99 mg/dL [facility] - 01 BUN 18 8 - 27 mg/dL [facility] - 01 Creatinine, Serum 0.96 0.76 - 1.27 mg/dL [facility] - 01 eGFR 81 >59 mL/min/1.73 [facility] - 01 BUN/creat ratio 19 10 - 24 [facility] - 01 Sodium 140 134 - 144 mmol/L [facility] - 01 Potassium, sr 5.0 3.5 - 5.2 mmol/L [facility] - 01 Chloride 102 96 - 106 mmol/L [facility] - 01 CO2 26 20 - 29 mmol/L [facility] - 01 Calcium 9.8 8.6 - 10.2 mg/dL [facility] - 01 Protein, sr 6.5 6.0 - 8.5 g/dL [facility] - 01 Albumin 4.4 3.8 - 4.8 g/dL [facility] - 01 Globulin, Total 2.1 1.5 - 4.5 g/dL [facility] - 01 Bilirubin, Total 0.4 0.0 - 1.2 mg/dL [facility] - 01 Alk phos 81 44 - 121 IU/L [facility] - 01 AST 31 0 - 40 IU/L [facility] - 01 ALT 24 0 - 44 IU/L [facility] - 01 Blood 11/19/2024 11:4 6 AM CDT 11/19/2024 Narrative [facility] - 11/20/2024 9:10 AM CDT Performed at: [address] [place] [address] [id number] Super[employer]: Jeffery Herman PhD, Phone: [phone] Saul Melvin DO LAB BLOOD ORDERABLES Final R esult [facility] - 01 * US Soft Tissue Neck (11/09/2024 11:49 AM CDT) Anatomical Region Laterality Modality Head and Neck N/A Ultrasound us Historical Provider MD ERNANDEZ US PROCEDURES Final R esult * (ABNORMAL) CBC with auto differential (11/02/2024 10:57 AM CDT) WBC 8.6 3.4 - 10.8 x10E3/uL [facility] - 01 RBC 4.63 4.14 - 5.80 x10E6/uL [facility] - 01 Hgb 14.4 13.0 - 17.7 g/dL [facility] - 01 Hct 43.5 37.5 - 51.0 % [facility] - 01 MCV 94 79 - 97 fL [facility] - 01 MCH 31.1 26.6 - 33.0 pg [facility] - 01 MCHC 33.1 31.5 - 35.7 g/dL [facility] - 01 Rdw 13.1 11.6 - 15.4 % [facility] - 01 Platelets 182 150 - 450 x10E3/uL [facility] - 01 Neutrophils pct 50 Not Estab. % [facility] - 01 Lymphs pct 39 Not Estab. % [facility] - 01 Monocytes pct 6 Not Estab. % [facility] - 01 Eosinophils pct 3 Not Estab. % [facility] - 01 Basophil pct 1 Not Estab. % [facility] - 01 Neutrophil abs 4.3 1.4 - 7.0 x10E3/uL [facility] - 01 Lymphs (Absolute) 3.4(H) 0.7 - 3.1 x10E3/uL [facility] - 01 Monocyte abs 0.5 0.1 - 0.9 x10E3/uL [facility] - 01 Eosinophils, abs 0.3 0.0 - 0.4 x10E3/uL [facility] - 01 Basophils, abs 0.1 0.0 - 0.2 x10E3/uL [facility] - 01 Immature Granulocytes 1 Not Estab. % [facility] - 01 Immature Grans (Abs) 0.1 0.0 - 0.1 x10E3/uL [facility] - 01 Hematology Comments: Note: [facility] - 01 Comment:Verified by microsco pic examination. Blood 11/02/2024 10:5 7 AM CDT 11/02/2024 Narrative [facility] - 11/03/2024 11:36 AM CDT Performed at: [address] [place] [address] [id number] [employer]: Jeffery Herman PhD, Phone: [phone] Saul Melvin LAB BLOOD ORDERABLES Final R esult Performing Organization Address [facility] de Phone Number [facility] * Erythrocyte sedimentation rate (11/02/2024 10:57 AM CDT) Erythrocyte sedimentation rate 5 0 - 30 mm/hr [facility] - 01 Blood 11/02/2024 10:5 7 AM CDT 11/02/2024 Narrative [facility] - 11/03/2024 7:09 AM CDT Performed at: [address] [place] [address] [id number] Super[employer]: Jeffery Herman PhD, Phone: [phone] Saul Melvin DO LAB BLOOD ORDERABLES Final R esult Performing Organization Address [facility] de Phone Number [facility] * Lactate dehydrogenase (LD) (11/02/2024 10:57 AM CDT) Lactate dehydrogenase (LDH) 171 121 - 224 IU/L [facility] - 01 Blood 11/02/2024 10:5 7 AM CDT 11/02/2024 Narrative [facility] - 11/03/2024 8:10 AM CDT Performed at: [address] [place] [address] [id number] [employer]: Jeffery Herman PhD, Phone: [phone] Saul Melvin DO LAB BLOOD ORDERABLES Final R esult Performing Organization Address City/[facility]/ZIP Co de Phone Number [facility] - 01 * (ABNORMAL) Comprehensive metabolic panel (11/02/2024 10:57 AM CDT) Pathologist [facility] Glucose 102(H) 70 - 99 mg/dL [facility] - 01 BUN 10 8 - 27 mg/dL [facility] - 01 Creatinine, Serum 0.96 0.76 - 1.27 mg/dL [facility] - 01 eGFR 81 >59 mL/min/1.7 3 [facility] - 01 BUN/creat ratio 10 10 - 24 [facility] - 01 Sodium 138 134 - 144 mmol/L [facility] - 01 Potassium, sr 4.7 3.5 - 5.2 mmol/L [facility] - 01 Chloride 99 96 - 106 mmol/L [facility] - 01 CO2 25 20 - 29 mmol/L [facility] - 01 Calcium 9.2 8.6 - 10.2 mg/dL [facility] - 01 Protein, sr 6.4 6.0 - 8.5 g/dL [facility] - 01 Albumin 4.2 3.8 - 4.8 g/dL [facility] - 01 Globulin, Total 2.2 1.5 - 4.5 g/dL [facility] - 01 Bilirubin, Total 0.4 0.0 - 1.2 mg/dL [facility] - 01 Alk phos 90 44 - 121 IU/L [facility] - 01 AST 20 0 - 40 IU/L [facility] - 01 ALT 16 0 - 44 IU/L [facility] - 01 Blood 11/02/2024 10:5 7 AM CDT 11/02/2024 Narrative [facility] - 11/03/2024 7:09 AM CDT Performed at: 01 - [address] [id number] Super[employer]: Jeffery Herman PhD, Phone: [phone] Saul Melvin DO LAB BLOOD ORDERABLES Final R esult Performing Organization Address City/[facility]/ZIP Co de Phone Number [facility] - 01 * CT Chest Abdomen Pelvis W Contrast (03/30/2023 4:31 PM CDT) Anatomical Region Laterality Modality Body N/A Computed Tomogra phy Historical Provider MD ERNANDEZ CT PROCEDURES Final R esult * (ABNORMAL) FIT occult blood, fecal (03/27/2022 8:46 AM CDT) Pathologist [facility] Occult blood, fecal Positive(A ) Negative [facility] - 01 03/27/2022 8:46 AM CDT 03/27/2022 Comment:ST Zhu [facility] - 03/29/2022 4:10 PM CDT Performed at: - [address] [id number] Supervisor [employer]: Jeffery Herman PhD, Phone: [phone] Saul Melvin DO LAB BODY FLUIDS AND STOOLS O RDERABLES Final Result Performing Organization Address City/[facility] Co de Phone Number [facility] - 01 * Hepatitis C antibody (10/18/2019 10:46 AM CDT) [facility] Hep C Ab NONREACT NONREACTIVE [facility] Comment: [employer] using BRANDY (chemiluminescent immunoassay) technology. NONREACTIVE: Antibodies to Hepatitis C not detected. This does not exclude early acute Hepatitis C infection, possibility of exposure to Hepatitis C, antibodies below detection limit, or to lack of antibody reactivity to the antigen used in this assay. EQUIVOCAL: Antibodies to Hepatitis C may or may not be present. Sample to be confirmed by real-time PCR method. REACTIVE: Antibodies to Hepatitis C detected.Sample to be confirmed by real-time PCR method. Hep C Ab NONREACT NONREACTIVE [facility] Comment: [employer] using BRANDY (chemiluminescent immunoassay) technology. NONREACTIVE: Antibodies to Hepatitis C not detected. This does not exclude early acute Hepatitis C infection, possibility of exposure to Hepatitis C, antibodies below detection limit, or to lack of antibody reactivity to the antigen used in this assay. EQUIVOCAL: Antibodies to Hepatitis C may or may not be present. Sample to be confirmed by real-time PCR method. REACTIVE: Antibodies to Hepatitis C detected.Sample to be confirmed by real-time PCR method. Blood specimen (specimen) 10/18/2019 10:46 AM CDT 10/18/2019 10:48 AM CDT Narrative Resulting Agency Comment RCR us Saul Melvin DO LAB MICROBIOLOGY - GENERAL O RDERABLES Final Result [address] [id number], [facility] [phone] from Last 3 Months or Most Recently Relevant to Health Maintenance Insurance COMMERCIAL GENERIC MEDICARE [employer]RO[employer] MEDICARE RAILRO[employer] BLUE CROSS MEDICARE SUPPLEMENT MEDICARE RAIL[place] [address] Care Teams Chin Strap Sewer Relationship Specialty Start Date End Date Nadeem Oglesby DO PCP - General Family Medicine 06/25/22 Saul Melvin DO Medical Oncologist/Freezer Person Hematology and Oncology 10/12/19
--- OUTSIDE RECORDS SUMMARY | 2024-12-25 11:10 | XMS_ITS | Encounter Summary ---
Author Organization [facility] Address [address] [place] [address] Care Team Providers Care Bridge Maintenance Worker Name Role Phone Odell Walls MD Primary Care Provider [phone] Encounter Details Date Type Department Care Team (Late st Contact Info) Description 10/12/2019 Lab Requisition [facility] [address] [place] [address] Daniele Harrison MD [address] [place] [address] Illness, unspecified Social History Tobacco Use Types Packs/Day Years Used Date Smoking Tobacco: Never Assessed Sex and Gender Information Value Date Recorded Sex Assigned at Not on file Legal Sex Male 2:57 PM CDT Gender Identity Not on file Sexual Orientation Not on file documented as of this encounter Plan of Treatment Not on file documented as of this encounter Procedures Procedure Name Priority Date/Time Associated Diagnosis Comments BONE MARROW BIOPSY (STL) Routine 10/11/2019 8:30 AM CDT Illness, unspecified documented in this encounter Results * BONE MARROW BIOPSY (STL) (10/11/2019 8:30 AM CDT) Case Report Bone Marrow Patholog y Report Case: [id number] Authorizing Provider: Daniele Harrison MD Collected: 10/11/2019 08:30 AM Ordering Location: [facility] Received: 10/12/2019 02:59 PM Pathologist: Daxa Abdullahi MD Specimens: A) - Bone Marrow Clot, AB20-13 B) - Bone Marrow Core, AB20-13 C) - Blood Peripheral, AB20-13 D) - Bone Marrow Aspirate, AB20-13 10/24/2019 3:15 PM CDT [facility] Final Diagnosis Bone marrow, aspirate, clot section, and core biopsy: - 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 - See description. Peripheral smear: - Wbc count adequate with lymphocytosis - Normocytic anemia - Thrombocytopenia 10/24/2019 3:15 PM T [facility] Amendment electronically signed by Daxa Abdullahi MD on 10/24/2019 at 1515 CDT at 1258 CDT AP Comment Overall, the bone marrow specimen is hypercellular for age with maturing trilineage hematopoiesis and evidence of involvement by CD5 positive mature B cell lymphoma. Differential diagnosis includes, small lymphocytic lymphoma/ leukemia, mantle cell lymphoma and diffuse large B cell lymphoma with discordant morphology.Correlatio n with clinical findings, lymph node biopsy with flow cytometry and relevant cytogenetic/molecular testing is required to furthur characterize this process. 10/24/2019 3:15 PM [facility] Peripheral Smear Description Manual Differential Count (100 cells): 15% neutrophils, 1% band, 84% lymphocytes. 1 nRBCs / 100 WBCs. Leukocyte number: normal. Granulocyte morphology: normal. Lymphocyte morphology: Normal, composed of small lymphocytes with clumped chromatin. Atypical lymphocytes noted Erythrocyte number: decreased. Nucleated red blood cells noted Erythrocyte morphology: normocytic. Anisopoikilocytosis: not signifcant. Polychromasia: not significant. Platelet number: decreased. Platelet morphology: normal.Occassional giant platelets noted 10/24/2019 3:15 PM T [facility] Bone Marrow Aspirate Differential count (200 cells) on touch imprints: 3% maturing myeloid precursors, 7% erythroid progenitors, 90% lymphocytes Specimen quality: adequate. Trilineage Hematopoiesis: decreased Myeloid:Erythroid ratio: Not applicable Myeloid Maturation: Too few to assess adequately Erythroid Maturation: normal. Megakaryocyte morphology: normal sized. Other: The marrow cellularity is mostly composed of small lymphocytes with clumped chromatin and inconspicuous nucleoli. 10/24/2019 3:15 PM [facility] Bone Marrow Core Biopsy and Clot Section Description Specimen quality: adequate. Cellularity: 75-80 % Trilineage Hematopoiesis: adequate. Myeloid to Erythroid ratio: normal. Myeloid maturation and localization: normal. Erythroid maturation and localization: normal. Megakaryocyte number: normal. Megakaryocyte distribution: normal. Bone trabeculae: normal. Blood vessels: normal. Other: Sheets of small lymphocytes with clumped chromatin noted Clot section marrow particles: present. Clot section morphology: similar to core biopsy. Reticulin stain on core biospy: Moderate increase in marrow fibrosis (MF-2) Iron stain on core biopsy: Decreased marrow storage iron. Immunohistochemical stains are performed on the core in the [facility] Department of Pathology, with appropriately reactive controls, and demonstrate the following: CD20, CD5, kappa HALLIE highlight atypical lymphoid infiltrate CD3 highlight the background T-cells. CD34 and CD117 shows no increase in blasts. CD138 highlights scattered plasma cells. CD23 highlights follicular dendritic meshwork. Lambda hallie, CD10 and cyclin D1 are negative. Sox-11 immunostain pending. Case reviewed in intradepartmental consensus conference with agreement. 10/24/2019 3:15 PM [facility] Clinical History 10/24/2019 3:15 PM [facility] Materials Received Received are 12 slides and 2 blocks labeled as AB20-13 along with the outside pathology report. [place] [address]. All materials are returned to the referring institution, along with a copy of our final report. 10/24/2019 3:15 PM [facility] Disclaimer The performance characteristics of all immunohistochemical and indirect immunofluorescence stains (if any) cited in this report were determined by the Histopathology Laboratory of [facility]. Some of these tests were developed by our own laboratory and have not been cleared or approved by the US Food and Drug Administration. The FDA does not require this test to go through premarket FDA review. These tests are used for clinical purposes. They should not be regarded as investigational or for research. This laboratory is certified under the Clinical Laboratory Improvement Amendments (CLIA) as qualified to perform high complexity clinical laboratory testing. This case has been personally reviewed and interpreted by the attending (teaching) pathologist. 10/24/2019 3:15 PM [facility] Addendum 1 SOX-11 immunostain performed at [facility] [place] is positive in lymphoid infiltrate which demonstrates involvement of bone marrow with B Cell lymphoma favor mantle cell lymphoma. Correlate with molecular and cytogenetic studies. AQ 10/24/2019 3:15 PM CDT [facility] Addendum electronically signed by Daxa Abdullahi MD on 10/19/2019 at 0945 CDT Embedded Images 10/24/2019 3:15 PM CDT [facility] Pathology/Cytology SPECIMEN FROM BONE MARROW OBTAINED BY ASPIRATION / Unknown 10/11/2019 8:30 AM CDT 10/12/2019 2:59 PM CDT Miscellaneous samples (specimen) BONE MARROW SPECIMEN / Unknown 10/11/2019 8:30 AM CDT 10/12/2019 2:59 PM CDT Miscellaneous samples (specimen) PERIPHERAL BLOOD / Unknown 10/11/2019 8:30 AM CDT 10/12/2019 2:59 PM CDT Miscellaneous samples (specimen) SPECIMEN FROM BONE MARROW OBTAINED BY ASPIRATION / Unknown 10/11/2019 8:30 AM CDT 10/12/2019 2:59 PM CDT Daniele Harrison MD LAB - PATHOLOGY/CYTOLOGY ORDER MONICO Edited Result - Final Performing Organization Address City/State/[facility] Co de Phone Number [facility] [address] [phone] documented in this encounter Visit Diagnoses Diagnosis Illness, unspecified documented in this encounter Care Teams Bridge Maintenance Worker Relationship Specialty Start Date End Date Odell Walls MD [address] [place] [id number] PCP - General 10/12/19 documented as of this encounter
--- OUTSIDE RECORDS SUMMARY | 2024-12-25 11:10 | XMS_ITS | Encounter Summary ---
Author Organization [facility] Address [address] [place] [address] Care Team Providers Care Bell Ringer Name Role Phone Odell Walls MD Primary Care Provider [phone] Encounter Details Date Type Department Care Team (Late st Contact Info) Description 10/17/2019 Lab Requisition [facility] [address] [place] [address] Daxa Abdullahi MD [address] [place], [place] [id number] Social History Tobacco Use Types Packs/Day Years [...] Procedure Name Priority Date/Time Associated Diagnosis Comments SLIDE PREP HISTOLOGY Routine 10/11/2019 8:30 AM CDT documented in this encounter Results * SLIDE PREP HISTOLOGY (10/11/2019 8:30 AM CDT) Client Specimen ID # [id number] 2:31 PM CDT [facility] Number of Slides Received 1 0 2:31 PM CDT [facility] Slide Prep Complete Testing is technical only and does not require an interpretation of results. 0 2:31 PM CDT [facility] at 1428 CDT Comment:All histochemical an d/or immunohistochemical results are interpreted with controls that demonstrate appropriate staining reactions before reporting results. Note on use of immunocytochemistry reagents: This test was developed and its performance characteristic determined by [facility], Department of Laboratory Medicine. It has not been cleared or approved by the U.S. Food and Drug Administration (FDA). The FDA has determined that such clearance or approval is not necessary. The test is used for clinical purpose. It should not be regarded as investigational or for research. This laboratory is certified to perform high complexity testing. The performance characteristics of the IHC/HALLIE assays have been validated on formalin-fixed paraffin embedded tissues only. The assays have not been validated on decalcified tissues. Results should be interpreted with caution. Pathology/Cytolo gy BONE MARROW SPECIMEN / Unknown 10/11/2019 8:30 AM CDT 10/17/2019 2:21 PM CDT us Daxa Abdullahi MD LAB - PATHOLOGY/CYTOLOGY ORDERAB LES Final Result Performing Organization Address City/State/[facility] Co de Phone Number [facility] [address] [place] [address] documented in this encounter Visit Diagnoses Not on filedocumented in this encounter Care Teams Bell Ringer Relationship Specialty Start Date End Date Odell Walls MD [address] [place] [address] PCP - General 10/12/19 documented as of this encounter
--- OUTSIDE RECORDS SUMMARY | 2024-12-25 11:10 | XMS_ITS | Clinical Summary ---
Author Organization [facility] Address [address] [place] [address] Care Team Providers Care Director Of Perioperative Services Name Role Phone Odell Walls MD Primary Care Provider [phone] Source Comments [facility],non-owned Affiliates and Associated Physician Practices is amultiple site organization consisting of ambulatory clinics and hospital sitesin [place], [place], [place] and [place]. This disclosure is being madepursuant to the Care Everywhere program and may not contain all information available regarding this patient. Last updated 18.[facility] Social History Tobacco Use Types Packs/Day Years Used Date Smoking Tobacco: Never Assessed Sex and Gender Information Value Date Recorded Sex Assigned at Not on file Legal Sex Male 2:57 PM CDT Gender Identity Not on file Sexual Orientation Not on file Plan of Treatment Health Maintenance Due Date Last Done Comments HEPATITIS C SCREENING 12/14/1963 DTAP/TDAP/TD VACCINES (1 - Tdap) 1965 PNEUMOCOCCAL VACCINE 50+ (1 of 1 - PCV) 1996 ZOSTER VACCINE (1 of 2) 1996 Respiratory Syncytial Virus (RSV) Vaccine Pt: or over 60 yrs (1 - 1-dose 75+ series) 2021 COVID-19 VACCINE ( - 2023-2 5 season) 2024 DEPRESSION SCREENING 07/18/2024 INFLUENZA VACCINE (Season Ended) 2025 HEPATITIS B VACCINE Aged Out No longe r eligible based on patient's age to complete this topic HIB VACCINE Aged Out No longer eligi ble based on patient's age to complete this topic HPV VACCINE Aged Out No longer eligi ble based on patient's age to complete this topic MENINGOCOCCAL (Group B) VACC INE SHARED DECISION-MAKING Aged Out No longer eligibl e based on patient's age to complete this topic MENINGOCOCCAL GROUPS A/C/Y/W VACCINE Aged Out No longer eligible b ased on patient's age to complete this topic Insurance MEDICARE Care Teams Director Of Perioperative Services Relationship Specialty Start Date End Date Odell Walls MD [address] [place] [id number] PCP - General 10/12/19
--- OUTSIDE RECORDS SUMMARY | 2024-12-25 11:10 | XMS_ITS | Clinical Summary ---
Author Organization [facility] Address [address] [place] [address] Care Team Providers Care Crew Caller Name Role Phone Saul Melvin DO Unavailable [phone] Nadeem Oglesby DO Primary Care Provider [phone] Allergies No known active allergies Medications allopurinoL [...] involving both lower extremities 12/16 Foot-drop 12/27/2016 Encounters Date Type Department Care Team Description 11/27/2024 Orders Only [facility] Physicians [facility] On[facility] [address] [place] [address] [address] [place] [address] ProviderNikkie MD 11/23/2024 8:15 AM CDT Office Visit [facility] Oncology [address] [place] [address] [address] [place] [address] Saul Melvin DO Lymphoma, 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 Orders Only [facility] [address] [place] [address] [address] [place] [address] Saul Melvin DO Lymphoma, small lymphocytic (HCC) (Primary Dx) from Last 3 Months Immunizations Immunization Administration Dates Next Due Influenza, Unspecified 05/01/2021,04/16/2020, iScience Interventional (J&J) SARS-CoV-2 Vaccination 09/26/2020 Moderna SARS-CoV-2 Monovalen t Vaccination (12+ YRS) 08/22/2021 Pfizer SARS-CoV-2 Monovalent Vaccination (12+ Yrs) PURPLE 01/28/2022 Surgical History Surgery Date Site/Laterality Comments COLONOSCOPY Medical History Medical History Date Comments Sleep apnea Diabetes mellitus (HCC) Family History Medical History Relation Name Comments Heart disease Father Family history of cardiac disorder - (Added by TW Conv) Alzheimer's disease Mother Family h istory of Alzheimer's disease - (Added by TW Conv) Cancer Sister 1 Family history of malignant neoplasm - (Added by TW Conv) Diabetes Sister 2 Family history of diabetes mellitus - (Added by TW Conv) Relation Name Status Comments Father Mother Sister 1 Sister 2 Social History Tobacco Use Types Packs/Day Years [...] on file 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 Gender Identity Male 02/14/2020 7:13 AM CDT Sexual Orientation Choose not to disclose 2019 9:16 AM CDT Obstetrics History Last Filed Vital Signs Vital Sign Reading [...] 11/23/2024 8:12 AM CDT Plan of Treatment Health Maintenance Due Date Last Done Comments Depression Screening 1945 Fall Risk Assessment 1945 DTaP/Tdap/Td Vaccine (1 - Tdap) 1957 Hepatitis B Screening 1964 Pneumococcal vaccine 65+ (1 of 2 - PCV) 1965 Zoster Vaccine (1 of 2) 1965 Well Visit 65+ 12/20/2011 Covid-19 Vaccine (4 - 2023-2 5 season) 2024 01/28/2022, 08/22/2021, 09/26/2020 Influenza Vaccine (Season Ended) 2025 05/01/2021, 04/16/2020, 05/06/2019 Hepatitis C Screening Completed 10/18/2019 Colon Cancer Screening-FIT Discontinued 03/27/2022 Colon Cancer Screening-FOBT Discontinued 03/27/2022 Colorectal Cancer Screening Discontinued Abdominal Aortic Aneurysm (A AA) Screen Completed 03/30/2023, 04/06/2022 Colon Cancer Screening-CT Colonography Discontinued Colon Cancer Screening-Colonoscopy Discontinued Colon Cancer Screening-DNA Stool Discontinued Colon Cancer Screening-Sigmoidoscopy Discontinued Procedures Procedure Name Priority Date/Time Associated Diagnosis [...] - 11/20/2024 9:10 AM CDT Performed at: [address] [place] [id number] Plastics Engineering Teacher: Jeffery Herman PhD, Phone: [phone] Saul Melvin [facility] BLOOD ORDERABLES Final R esult Performing Organization Address [facility]/ZIP Co de Phone Number [facility] - * Erythrocyte sedimentation rate (11/19/2024 11:46 AM CDT) Erythrocyte sedimentation rate 8 0 - 30 mm/hr [facility] - Blood 11/19/2024 11:4 6 AM CDT 11/19/2024 Narrative [facility] - 11/20/2024 8:11 AM CDT Performed at: [address] [id number] Plastics Engineering Teacher: Jeffery Herman PhD, Phone: [phone] Saul Melvin LAB BLOOD ORDERABLES Final R esult Performing Organization Address [facility] Co de Phone Number [facility] - * Lactate dehydrogenase (LD) (11/19/2024 11:46 AM CDT) Pathologist [facility] Lactate dehydrogenase (LDH) 206 121 - 224 IU/L [facility] - Blood 11/19/2024 11:4 6 AM CDT 11/19/2024 Narrative [facility] - 11/20/2024 10:36 AM CDT Performed at: [address] [place] [id number] Plastics Engineering Teacher: Jeffery Herman PhD, Phone: [phone] Saul Melvin LAB BLOOD ORDERABLES Final R esult Performing Organization Address City/[facility]/ZIP Co de Phone Number [facility] - * Comprehensive metabolic panel (11/19/2024 11:46 AM CDT) Glucose 97 70 - 99 mg/dL [facility] [...] - 11/20/2024 9:10 AM CDT Performed at: [address] [place] [id number] Plastics Engineering Teacher: Jeffery Herman PhD, Phone: [phone] us Saul Melvin DO LAB BLOOD ORDERABLES Final R esult [facility] - 01 * US Soft Tissue Neck (11/09/2024 11:49 AM CDT) Anatomical Region Laterality Modality Head and Neck N/A Ultrasound us Historical Provider MD ERNANDEZ US PROCEDURES Final R esult * (ABNORMAL) CBC with auto differential (11/02/2024 10:57 AM CDT) [facility] WBC 8.6 3.4 - 10.8 x10E3/uL [facility] [...] - 11/03/2024 11:36 AM CDT Performed at: - [facility] [address] [id number] Plastics Engineering Teacher: Jeffery Herman PhD, Phone: [phone] Saul Melvin LAB BLOOD ORDERABLES Final R esult Performing Organization Address [facility] Co de Phone Number [facility] - * Erythrocyte sedimentation rate (11/02/2024 10:57 AM CDT) Pathologist [facility] Erythrocyte sedimentation rate 5 0 - 30 mm/hr [facility] - 01 Blood 11/02/2024 10:5 7 AM CDT 11/02/2024 Narrative [facility] - 11/03/2024 7:09 AM CDT Performed at: [address] [place] [address] [id number] Plastics Engineering Teacher: Jeffery Herman PhD, Phone: [phone] Saul Melvin LAB BLOOD ORDERABLES Final R esult Performing Organization Address [facility] de Phone Number [facility] - 01 * Lactate dehydrogenase (LD) (11/02/2024 10:57 AM CDT) Pathologist [facility] Lactate dehydrogenase (LDH) 171 121 - 224 IU/L [facility] - 01 Blood 11/02/2024 10:5 7 AM CDT 11/02/2024 Narrative [facility] - 11/03/2024 8:10 AM CDT Performed at: [address] [place] [id number] Plastics Engineering Teacher: Jeffery Herman PhD, Phone: [phone] Saul Melvin LAB BLOOD ORDERABLES Final R esult Performing Organization Address [facility] Co de Phone Number [facility] - 01 * (ABNORMAL) Comprehensive metabolic panel (11/02/2024 10:57 AM CDT) Glucose 102(H) 70 - 99 mg/dL [facility] [...] - 11/03/2024 7:09 AM CDT Performed at: [address] [id number] Plastics Engineering Teacher: Jeffery Herman PhD, Phone: [phone] Saul Melvin DO LAB BLOOD ORDERABLES Final R esult [facility] - * CT Chest Abdomen Pelvis W Contrast (03/30/2023 4:31 PM CDT) Anatomical Region Laterality Modality Body N/A Computed Tomogra phy Historical Provider IMG CT PROCEDURES Final R esult * (ABNORMAL) FIT occult blood, fecal (03/27/2022 8:46 AM CDT) Pathologist [facility] Occult blood, fecal Positive(A ) Negative [facility] - 01 03/27/2022 8:46 AM CDT 03/27/2022 Comment:ST Narrative [facility] - 03/29/2022 4:10 PM CDT Performed at: 01 - [address] [id number] Plastics Engineering Teacher: Jeffery Herman PhD, Phone: [phone] Saul Melvin DO LAB BODY FLUIDS AND STOOLS O RDERABLES Final Result Performing Organization Address City/[facility]/ZIP Co de Phone Number [facility] - 01 * Hepatitis C antibody (10/18/2019 10:46 AM CDT) Hep C Ab NONREACT NONREACTIVE [facility] Comment: Siemens CentaurXP using BRANDY (chemiluminescent immunoassay) technology. NONREACTIVE: Antibodies [...] [facility] Comment: Siemens CentaurXP using BRANDY (chemiluminescent immunoassay) technology. NONREACTIVE: Antibodies [...] AM CDT Narrative Resulting Agency Comment RCR Saul Melvin DO LAB MICROBIOLOGY - GENERAL O RDERABLES Final Result [facility] [address] [place], [place] [id number] [place] [address] from Last 3 Months or Most Recently Relevant to Health Maintenance Insurance MEDICARE RAILROAD [place] [address] [place] [address] MEDICARE SUPPLEMENT [facility] Care Teams Crew Caller Relationship Specialty Start Date End Date Nadeem Oglesby DO PCP - General Family Medicine 06/25/22 Saul Melvin DO Medical Oncologist/Video Editing Internship Hematology and Oncology 10/12/19
--- OUTSIDE RECORDS SUMMARY | 2024-12-25 11:10 | XMS_ITS ---
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 Past Treatment and Therapy Plans Oncology Chemotherapy Treatment Plan Name Start Date Discontinue Date Treatment Medications Discontinue Reason Plan Provider Cycles RiTUXimab/IMBRU VICA 28 Days Cycle - Lymphoma 0 05/24/2023 ibrutinib (IMBRUVICA)riT UXimab (RITUXAN)riTUX imab (RITUXAN) IVPB in 500 mL Orders Saul Melvin DO 3 (4 of 5 cycles) started Bendamustine / RiTUXimab 28 Day Cycles - NHL 10/25/2019 12/27/2019 bendamustine (BENDEKA)deepika mustine (BENDEKA) IVPB in 50 mLriTUXimab (RITUXAN)riTUX imab (RITUXAN) IVPB in 500 mL Provider Discretion Saul Melvin DO 2 of 4 cycles completed
--- NOTE | 2024-12-25 11:13 | S_PTH ---
PATIENT: Francis Johnson LOC: [facility] U#:[id number] AGE/SX: 79/M ROOM: RE12/25/[address]: Jason Guadalupe MD : 1945 BED: DIS: 12/25/2024 SPEC #: [id number] RECD: 12/25/24 11:20 STATUS: ANTONIA RETaiwo #: [id number] JIM: 12/25/24 11:[address]: Jason Guadalupe DEPT: [facility] Surgical RECD BY: Davin Beckett ENTERED: 12/25/24 11:21 SP TYPE: Surgical OTHR DR: Augusto Quintana MD Tissues: A - Lymph Node Biopsy Procedures: Unstained Slides Hematoxylin and Eosin Stain Gross and Microscopic Level 4 Flow Cytometry
== END 2024-12-25 10:14 | disposition home or self-care (01) ==
PROVIDERS: PCP Family Medicine; Visit Provider Otolaryngology
DX: C85.11 Unspecified B-cell lymphoma, lymph nodes of head, face, and neck (principal); R22.1 Localized swelling, mass and lump, neck
CPT/HCPCS: 20206; 76942; 88184; 88305

== ENCOUNTER 2025-01-16 07:30 | Outpatient (CLI) | payer MEDICARE, SELFPAY ==
--- NOTE | ~2025-01-16 | CT_ITS ---
Clinical Indication: Lymphoma CT Scan of the Chest, Abdomen, and Pelvis with Contrast: Technique: Contiguous sections were acquired throughout the chest, abdomen, and pelvis after intraven ous administration of 100 cc of Omnipaque 350. Dose reduction technique was used on this scan by avril lam automated exposure control and iterative reconstruction technique. The dose-length product (DL P) was 1584.89 mGy-cm. Comparison: 03/30/2023 Findings: Interval progression of mediastinal and right hilar lymphadenopathy. Right hilar kelin mass measures 4.5 x 2.6 (axial image 66). Mediastinal nodes, predominantly along right paratracheal stripe and in t he superior mediastinum, are also increased from prior exam, largest node in this region measuring ap proximately 2 cm in short axis. There is an increasing epicardial lymph node near the left ventricula r apex (axial image 83). Shotty bilateral axillary lymph nodes are probably enlarged as compared to p rior exam, though not frankly enlarged by size criteria. There is no evidence of pleural or pericardial effusion. Mediastinal vascular structures are unremark able. Stable mild chronic interstitial changes or areas of scarring. No suspicious pulmonary nodule or cons olidation. The liver, pancreas, gallbladder, adrenals and left kidney are within normal limits. There is progres sive splenomegaly, with spleen currently measuring 20 cm in AP dimension. Stable atrophic change of t he inferior portion of the right kidney. There are atherosclerotic calcifications of the aorta. There is interval progression of lymphadenopathy in the abdomen. There is a 2.4 cm lymph node along t he left common iliac chain (axial image 22). There are increased shotty lymph nodes in the epigastric region and peripancreatic region. There is an enlarged lymph node posterior to the pancreatic head m easuring 3.3 x 1.4 cm (axial image 151). There is additional lymphadenopathy along the left external iliac chain and in the left pelvic sidewall, largest node measuring up to 4.5 x 2.6 cm (axial image 4 5). There is extensive left inguinal lymphadenopathy, significantly progressed from prior exam. No bowel obstruction or bowel wall thickening. There is no evidence to suggest acute appendicitis. Urinary bladder is unremarkable. Prostate gland is enlarged. No ascites. Impression: Extensive lymphadenopathy with significant progression/worsening from prior exam. Largest kelin lesio ns currently are located in the right hilum, peripancreatic region, and in the left pelvis and left i nguinal regions. There are additional increasing nodes in the axillary regions, upper mediastinum, an d retroperitoneum. Significant progression of splenomegaly, which could reflect lymphomatous involvement. Stable areas of chronic scarring or interstitial change in the lungs. Enlarged prostate gland. Reviewed, dictated and finalized at location M. Impression: Extensive lymphadenopathy with significant progression/worsening from prior exa m. Largest kelin lesions currently are located in the right hilum, peripancreat ic region, and in the left pelvis and left inguinal regions. There are addition al increasing nodes in the axillary regions, upper mediastinum, and retroperito neum. Significant progression of splenomegaly, which could reflect lymphomatous invol vement. Stable areas of chronic scarring or interstitial change in the lungs. Enlarged prostate gland.
--- OUTSIDE RECORDS SUMMARY | 2025-01-16 07:35 | XMS_ITS | Referral Summary ---
Author Organization [facility] Address [address] [place] [address] Care Team Providers Care Home Sales Consultant Name Role Phone Saul Melvin DO Unavailable [phone] Nadeem Oglesby DO Primary Care Provider [phone] Encounters Date Type Department Care Team Description 11/27/2024 Orders Only [facility] Physicians [facility] Oncology [address] [place] [address] [address] [place] [address] ProviderNikkie MD 11/23/2024 8:15 AM CDT Office Visit [facility] Oncology [address] [place] [address] [address] [place] [address] Saul Melvin DO Lymphoma, 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 Orders Only [facility] Oncology [address] [place] [address] [address] [place] [phone] Saul Melvin DO Lymphoma, small lymphocytic (HCC) [...] on file 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 Gender Identity Male 02/14/2020 7:13 AM CDT [...] - 11/20/2024 9:10 AM CDT Performed at: [address] [place] [address] [id number] Robotics Engineer: Jeffery Herman PhD, Phone: [phone] Saul Melvin DO [facility] BLOOD ORDERABLES Final R esult Performing Organization Address [facility] de Phone Number [facility] * Erythrocyte sedimentation rate (11/19/2024 11:46 AM CDT) Erythrocyte sedimentation rate 8 0 - 30 mm/hr [facility] - Blood 11/19/2024 11:4 6 AM CDT 11/19/2024 Narrative [facility] - 11/20/2024 8:11 AM CDT Performed at: [address] [place] [address] [id number] Robotics Engineer: Jeffery Herman PhD, Phone: [phone] Saul Melvin DO LAB BLOOD ORDERABLES Final R esult Performing Organization Address [facility] Co de Phone Number [facility] * Lactate dehydrogenase (LD) (11/19/2024 11:46 AM CDT) Lactate dehydrogenase (LDH) 206 121 - 224 IU/L [facility] - 01 Blood 11/19/2024 11:4 6 AM CDT 11/19/2024 Narrative [facility] - 11/20/2024 10:36 AM CDT Performed at: [address] [place] [address] [id number] Robotics Engineer: Jeffery Herman PhD, Phone: [phone] Saul Melvin DO LAB BLOOD ORDERABLES Final R esult [facility] - 01 * Comprehensive metabolic panel (11/19/2024 11:46 AM CDT) [facility] Glucose 97 70 - 99 mg/dL [...] - 11/20/2024 9:10 AM CDT Performed at: [address] [place] [address] [id number] Robotics Engineer: Jeffery Herman PhD, Phone: [phone] Saul Melvin DO LAB BLOOD ORDERABLES Final [...] - 11/03/2024 11:36 AM CDT Performed at: [address] [place] [address] [id number] Robotics Engineer: Jeffery Herman PhD, Phone: [phone] Saul Mevlin LAB BLOOD ORDERABLES Final R esult Performing Organization Address [facility] de Phone Number [facility] * Erythrocyte sedimentation rate (11/02/2024 10:57 AM CDT) Erythrocyte sedimentation rate 5 0 - 30 mm/hr [facility] - 01 Blood 11/02/2024 10:5 7 AM CDT 11/02/2024 Narrative [facility] - 11/03/2024 7:09 AM CDT Performed at: [address] [place] [address] [id number] Robotics Engineer: Jeffery Herman PhD, Phone: [phone] Saul Melvin DO LAB BLOOD ORDERABLES Final R esult Performing Organization Address [facility] de Phone Number [facility] * Lactate dehydrogenase (LD) (11/02/2024 10:57 AM CDT) Lactate dehydrogenase (LDH) 171 121 - 224 IU/L [facility] - 01 Blood 11/02/2024 10:5 7 AM CDT 11/02/2024 Narrative [facility] - 11/03/2024 8:10 AM CDT Performed at: [address] [place] [address] [id number] Robotics Engineer: Jeffery Herman PhD, Phone: [phone] us Saul Melvin DO LAB BLOOD ORDERABLES Final R esult Performing Organization Address City/[facility]/ZIP Co de Phone Number [facility] - 01 * (ABNORMAL) Comprehensive metabolic panel (11/02/2024 10:57 AM CDT) Pathologist [facility] Glucose 102(H) 70 - 99 mg/dL [facility] [...] 7:09 AM CDT Performed at: 01 - [address] [id number] Robotics Engineer: Jeffery Herman PhD, Phone: [phone] Saul Melvin DO LAB BLOOD ORDERABLES Final R esult Performing Organization Address City/[facility]/ZIP Co de Phone Number [facility] - 01 * CT Chest Abdomen Pelvis W Contrast (03/30/2023 4:31 PM CDT) Anatomical Region Laterality Modality Body N/A Computed Tomogra phy Historical Provider MD ERNANDEZ CT PROCEDURES Final R esult * (ABNORMAL) FIT occult blood, fecal (03/27/2022 8:46 AM CDT) Pathologist [facility] Occult blood, fecal Positive(A ) Negative [facility] - 01 03/27/2022 8:46 AM CDT 03/27/2022 Comment:ST Zhu [facility] - 03/29/2022 4:10 PM CDT Performed at: - [address] [id number] Robotics Engineer: Jeffery Herman PhD, Phone: [phone] Saul Melvin DO LAB BODY FLUIDS AND STOOLS O RDERABLES Final Result Performing Organization Address City/[facility] Co de Phone Number [facility] - 01 * Hepatitis C antibody (10/18/2019 10:46 AM CDT) [facility] Hep C Ab NONREACT NONREACTIVE [facility] Comment: Siemens fflickaurXP using BRANDY (chemiluminescent immunoassay) technology. NONREACTIVE: Antibodies [...] PCR method. Hep C Ab NONREACT NONREACTIVE [facility] Comment: Siemens fflickaurXP using BRANDY (chemiluminescent immunoassay) technology. NONREACTIVE: Antibodies [...] MICROBIOLOGY - GENERAL O RDERABLES Final Result [address] [address], [facility] [phone] from Last 3 Months or Most Recently Relevant to Health Maintenance Insurance COMMERCIAL GENERIC MEDICARE RAILROAD MEDICARE RAILROAD BLUE CROSS MEDICARE SUPPLEMENT MEDICARE [place] [address] Care Teams Home Sales Consultant Relationship Specialty Start Date End Date Nadeem Oglesby DO PCP - General Family Medicine 06/25/22 Saul Melvin DO Medical Oncologist/Notch Grinder Hematology and Oncology 10/12/19
--- OUTSIDE RECORDS SUMMARY | 2025-01-16 07:35 | XMS_ITS | Clinical Summary ---
Author Organization [facility] Address [address] [place] [address] Care Team Providers Care Production Controller Name Role Phone Saul Melvin DO Unavailable [phone] Nadeem Oglesby DO Primary Care Provider Allergies No known active allergies Medications allopurinoL [...] Department Care Team Description 11/27/2024 Orders Only [facility] Physicians [facility] Oncology [address] [place] [address] [address] [place] [address] ProviderNikkie MD 11/23/2024 8:15 AM CDT Office Visit [facility] Oncology [address] [place] [address] [address] [place] [address] Saul Melvin DO Lymphoma, 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 Orders Only [facility] Oncology [address] [place] [address] [address] [place] [address] Saul Melvin DO Lymphoma, small lymphocytic (HCC) (Primary Dx) from Last 3 Months Immunizations Immunization Administration Dates Next Due Influenza, Unspecified 05/01/2021,04/16/2020, Xen[employer] (J&J) SARS-CoV-2 Vaccination 09/26/2020 Moderna SARS-CoV-2 Monovalen [...] on file 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 Gender Identity Male 02/14/2020 7:13 AM CDT [...] - 11/20/2024 9:10 AM CDT Performed at: [address] [place] [address] [id number] Pad Assembler: Jeffery Herman PhD, Phone: [phone] Saul Melvin [facility] BLOOD ORDERABLES Final R esult Performing Organization Address [facility]ZIP Co de Phone Number [facility] - * Erythrocyte sedimentation rate (11/19/2024 11:46 AM CDT) Erythrocyte sedimentation rate 8 0 - 30 mm/hr [facility] - Blood 11/19/2024 11:4 6 AM CDT 11/19/2024 Narrative [facility] - 11/20/2024 8:11 AM CDT Performed at: [address] [id number] Pad Assembler: Jeffery Herman PhD, Phone: [phone] Saul Melvin LAB BLOOD ORDERABLES Final R esult Performing Organization Address [facility] Co de Phone Number [facility] - * Lactate dehydrogenase (LD) (11/19/2024 11:46 AM CDT) Pathologist [facility] Lactate dehydrogenase (LDH) 206 121 - 224 IU/L [facility] - Blood 11/19/2024 11:4 6 AM CDT 11/19/2024 Narrative [facility] - 11/20/2024 10:36 AM CDT Performed at: [address] [place] [address] [id number] Pad Assembler: Jeffery Herman PhD, Phone: [phone] Saul Melvin LAB BLOOD ORDERABLES Final R esult Performing Organization Address City/[facility]/ZIP Co de Phone Number [facility] - * Comprehensive metabolic panel (11/19/2024 11:46 [...] - 11/20/2024 9:10 AM CDT Performed at: [address] [place] [address] [id number] Pad Assembler: Jeffery Herman PhD, Phone: [phone] us Saul Melvin DO LAB BLOOD ORDERABLES Final R esult [facility] - 01 * US Soft Tissue Neck (11/09/2024 11:49 AM CDT) Anatomical Region Laterality Modality Head and Neck N/A Ultrasound us Historical Provider MD ERNANDEZ US PROCEDURES Final R esult * (ABNORMAL) CBC with auto differential (11/02/2024 10:57 AM CDT) [facility] WBC 8.6 3.4 - 10.8 x10E3/uL [facility] [...] 11:36 AM CDT Performed at: - [facility] [address] [id number] Pad Assembler: Jeffrey Herman PhD, Phone: [phone] Saul Melvin LAB BLOOD ORDERABLES Final R esult Performing Organization Address [facility] Co de Phone Number [facility] - * Erythrocyte sedimentation rate (11/02/2024 10:57 AM CDT) Pathologist [facility] Erythrocyte sedimentation rate 5 0 - 30 mm/hr [facility] - 01 Blood 11/02/2024 10:5 7 AM CDT 11/02/2024 Narrative [facility] - 11/03/2024 7:09 AM CDT Performed at: [address] [place] [address] [id number] Pad Assembler: Jeffery Herman PhD, Phone: [phone] Saul Melvin LAB BLOOD ORDERABLES Final R esult Performing Organization Address [facility] de Phone Number [facility] - 01 * Lactate dehydrogenase (LD) (11/02/2024 10:57 AM CDT) Pathologist [facility] Lactate dehydrogenase (LDH) 171 121 - 224 IU/L [facility] - 01 Blood 11/02/2024 10:5 7 AM CDT 11/02/2024 Narrative [facility] - 11/03/2024 8:10 AM CDT Performed at: [address] [place] [address] [id number] Pad Assembler: Jeffery Herman PhD, Phone: [phone] Saul Melvin LAB BLOOD ORDERABLES Final R esult Performing Organization Address [facility] Co de Phone Number [facility] [...] - 11/03/2024 7:09 AM CDT Performed at: [address] [id number] Pad Assembler: Jeffery Herman PhD, Phone: [phone] Saul Melvin DO LAB BLOOD ORDERABLES Final R esult [facility] - * CT Chest Abdomen Pelvis W Contrast (03/30/2023 4:31 PM CDT) Anatomical Region Laterality Modality Body N/A Computed Tomogra phy Historical Provider IMG CT PROCEDURES Final R esult * (ABNORMAL) FIT occult blood, fecal (03/27/2022 8:46 AM CDT) Pathologist [facility] Occult blood, fecal Positive(A ) Negative [facility] - 01 03/27/2022 8:46 AM CDT 03/27/2022 Comment:ST Narrative [facility] - 03/29/2022 4:10 PM CDT Performed at: 01 - [address] [id number] Pad Assembler: Jeffery Herman PhD, Phone: [phone] Saul Melvin DO LAB BODY FLUIDS AND STOOLS O RDERABLES Final Result Performing Organization Address City/[facility]/ZIP Co de Phone Number [facility] - 01 * Hepatitis C antibody (10/18/2019 10:46 AM CDT) Hep C Ab NONREACT NONREACTIVE [facility] Comment: Siemens CentaurXP using BRANDY (chemiluminescent immunoassay) [...] PCR method. Hep C Ab NONREACT NONREACTIVE [facility] Comment: Siemens CentaurXP using BRANDY (chemiluminescent immunoassay) [...] MICROBIOLOGY - GENERAL O RDERABLES Final Result [facility] [address] [place], [place] [address] [place] [address] from Last 3 Months or Most Recently Relevant to Health Maintenance Insurance MEDICARE RAILROAD MEDICARE [place] [address] [address] MEDICARE SUPPLEMENT [facility] Care Teams Production Controller Relationship Specialty Start Date End Date Nadeem Oglesby DO PCP - General Family Medicine 06/25/22 Saul Melvin DO Medical Oncologist/Duplicator Punch Operator Hematology and Oncology 10/12/19
--- OUTSIDE RECORDS SUMMARY | 2025-01-16 07:35 | XMS_ITS | Encounter Summary ---
Author Organization [facility] Address [address] [facility] [place] [address] Care Team Providers Care Soil Biology Teacher Name Role Phone Odell Walls MD Primary Care Provider [phone] Encounter Details Date Type Department Care Team (Late st Contact Info) Description 10/17/2019 Lab Requisition [facility] [address] [place] [address] Daxa Abdullahi MD [facility] [place], [place] [id number] Social History Tobacco Use Types Packs/Day Years [...] 8:30 AM CDT) Client Specimen ID # [id number] 2:31 PM CDT [facility] Number of Slides Received 1 0 2:31 PM CDT [facility] Slide Prep Complete Testing is technical only and does not require an interpretation of results. 0 2:31 PM CDT [facility] at 1428 CDT Comment:All histochemical an d/or immunohistochemical results are interpreted with controls that demonstrate appropriate staining reactions before reporting results. Note on use of immunocytochemistry reagents: This test was developed and its performance characteristic determined by [facility], Department of Laboratory Medicine. It has [...] ORDERAB LES Final Result Performing Organization Address City/State/[facility] Co de Phone Number [facility] [address] [place] [address] documented in this encounter Visit Diagnoses Not on filedocumented in this encounter Care Teams Soil Biology Teacher Relationship Specialty Start Date End Date Odell Walls MD [address] [place] [address] PCP - General 10/12/19 documented as of this encounter
--- OUTSIDE RECORDS SUMMARY | 2025-01-16 07:35 | XMS_ITS | Encounter Summary ---
Author Organization [facility] Address [address] [facility] [place] [address] Care Team Providers Care Fuel Assembler Name Role Phone Odell Walls MD Primary Care Provider [phone] Encounter Details Date Type Department Care Team (Late st Contact Info) Description 10/12/2019 Lab Requisition [facility] Lab [address] [place] [address] Daniele Harrison MD [address] [facility] [address] [place] [address] Illness, unspecified Social History Tobacco Use [...] Report Bone Marrow Patholog y Report Case: [id number] Authorizing Provider: Daniele Harrison MD Collected: 10/11/2019 08:30 AM Ordering Location: [facility] Received: 10/12/2019 02:59 PM Pathologist: Daxa Abdullahi MD Specimens: A) - Bone Marrow Clot, AB20-13 B) - Bone Marrow Core, AB20-13 C) - Blood Peripheral, AB20-13 D) - Bone Marrow Aspirate, AB20-13 10/24/2019 3:15 PM CDT [facility] Final Diagnosis Bone marrow, aspirate, clot section, and core biopsy: - 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 - See description. Peripheral smear: - Wbc count adequate with lymphocytosis - Normocytic anemia - Thrombocytopenia 10/24/2019 3:15 PM CDT [facility] Amendment electronically signed by [...] furthur characterize this process. 10/24/2019 3:15 PM T [facility] Peripheral Smear Description Manual Differential [...] giant platelets noted 10/24/2019 3:15 PM T [facility] Bone Marrow Aspirate Differential [...] chromatin and inconspicuous nucleoli. 10/24/2019 3:15 PM CDT [facility] Bone Marrow Core Biopsy and [...] are performed on the core in the [facility] Department of Pathology, with appropriately reactive controls, [...] consensus conference with agreement. 10/24/2019 3:15 PM [facility] Clinical History 10/24/2019 3:15 PM [facility] Materials Received Received are 12 slides and 2 blocks labeled as [id number] along with the outside pathology report. The [place] [address]. All materials are returned to the referring institution, along with a copy of our final report. 10/24/2019 3:15 PM [facility] Disclaimer The performance characteristics of all immunohistochemical and indirect immunofluorescence stains (if any) cited in this report were determined by the Histopathology Laboratory of [facility]. Some of these tests were developed by [...] the attending (teaching) pathologist. 10/24/2019 3:15 PM [facility] Addendum 1 SOX-11 immunostain performed at [facility] is positive in lymphoid infiltrate which demonstrates involvement of bone marrow with B Cell lymphoma favor mantle cell lymphoma. Correlate with molecular and cytogenetic studies. AQ 10/24/2019 3:15 PM CDT [facility] Addendum electronically signed by Daxa Abdullahi MD on 10/19/2019 at 0945 CDT Embedded Images 10/24/2019 3:15 PM CDT [facility] Pathology/Cytology SPECIMEN FROM BONE [...] PATHOLOGY/CYTOLOGY ORDER MONICO Edited Result - Final [facility] [address] [phone] documented in this encounter Visit Diagnoses Diagnosis Illness, unspecified documented in this encounter Care Teams Fuel Assembler Relationship Specialty Start Date End Date Odell Walls MD [address] [place] [address] PCP - General 10/12/19 documented as of this encounter
--- OUTSIDE RECORDS SUMMARY | 2025-01-16 07:35 | XMS_ITS | Encounter Summary ---
Author Organization [facility] Address [address] [facility] [place] [address] Care Team Providers Care Electrical Engineering Technician Name Role Phone Odell Walls MD Primary Care Provider [phone] Encounter Details Date Type Department Care Team (Late st Contact Info) Description 12/26/2024 Lab Requisition [facility] - Pathology Lab [address] [place] [id number] Rodrigo Garcia MD [address] [facility] [address] [place] [address] Illness, unspecified Social History Tobacco Use [...] Procedure Name Priority Date/Time Associated Diagnosis Comments PATHOLOGY TISSUE Routine 12/25/2024 11:1 3 AM CDT Illness, unspecified documented in this encounter Results * PATHOLOGY TISSUE (12/25/2024 11:13 AM CDT) Case Report Surgical Pathology Report Case: [id number] Authorizing Provider: Rodrigo Garcia Collected: 12/25/2024 11:13 AM MD Ar Ordering Location: [facility] - Received: 12/26/2024 03:47 PM Pathology Lab Pathologist: Cecily Sanchez MD Specimen: Lymph Node Biopsy 12/28/2024 2:03 PM [facility] Final Diagnosis Lymph node, left cervix, core biopsy: CD5 positive mature B-cell lymphoma, most consistent with mantle cell lymphoma. 12/28/2024 2:03 PM [facility] at 1403 CDT Microscopic Description and Comment The H&E sections show diffuse proliferation of small mature rather monomorphic lymphocytes with round to slightly irregular nuclei. Selected immunostains are performed, and reveal the following: The lesional cells are highlighted by CD20 and PAX5, with coexpression of CD5, BCL-2, Mum -1, and SOX11; negative for CD3, cyclin D1, CD10, and C-myc. BCL-6 stain is rather weak. Ki-67 highlights approximately 60% of the lesional cells. CD21 and CD23 highlight the follicular dendritic cell networks. Additional studies such as FISH t(8;14) and t(8;14) by PCR studies can further help with a definitive diagnosis. 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 12/28/2024 2:03 PM [facility] Materials Received Received are 3 slide(s) and 1 block(s) labeled [id number] along with a copy of the outside pathology report. [place] [address]. All original materials are returned to the referring institution, along with a copy of our final report. 12/28/2024 2:03 PM [facility] Pathologist Location at [facility] 12/28/2024 2:03 PM [facility] Disclaimer The performance characteristics of all immunohistochemical and indirect immunofluorescence stains (if any) cited in this report were determined by the Histopathology Laboratory of [facility]. Some of these tests were developed [...] and interpreted by the attending (teaching) pathologist. 12/28/2024 2:03 PM CDT [facility] Embedded Images 12/28/2024 2:03 PM CDT [facility] Pathology/Cytolo gy BIOPSY OF LYMPH NODE / Unknown 12/25/2024 11:13 AM CDT 12/26/2024 3:47 PM CDT Rodrigo Garcia MD LAB - PATHOLOGY/CYT OLOGY ORDERABLES Final Result [facility] [address] [phone] documented in this encounter Visit Diagnoses Diagnosis Illness, unspecified documented in this encounter Care Teams Electrical Engineering Technician Relationship Specialty Start Date End Date Odell Walls MD [address] [place], [place] [id number] PCP - General 10/12/19 documented as of this encounter
--- OUTSIDE RECORDS SUMMARY | 2025-01-16 07:35 | XMS_ITS ---
Author Organization [facility] Address [address] [place] [address] Care Team Providers Care Summer School Coordinator Name Role Phone Saul Melvin DO Unavailable [phone] Nadeem Oglesby DO Primary Care Provider [phone] Active Problems Problem Noted Date Diagnosed Date [...]
--- OUTSIDE RECORDS SUMMARY | 2025-01-16 07:35 | XMS_ITS | Clinical Summary ---
Author Organization [facility] Address [address] [facility] [place] [address] Care Team Providers Care Jewelry Sorter Name Role Phone Odell Walls MD Primary Care Provider [phone] Source Comments [facility] [employer],non-owned Affiliates and Associated Physician Practices is amultiple site organization consisting of ambulatory clinics and hospital sitesin [place], [place]. This disclosure is being madepursuant to the Care Everywhere program and may not contain all information available regarding this patient. Last updated 18.[facility] [employer] Encounters Date Type Department Care Team Description 12/26/2024 Lab Requisition [facility] - Pathology Lab [address] [place] [address] Rodrigo Garcia MD Illness, unspecified from Last 3 Months Social History Tobacco Use Types Packs/Day Years Used Date Smoking Tobacco: Never Assessed Sex and Gender Information Value Date Recorded Sex Assigned at Not on file Legal Sex Male 2:57 PM CDT Gender Identity Not on file Sexual Orientation Not on file Plan of Treatment Health Maintenance Due Date Last Done Comments MEDICARE AWV 12 MONTHS 1945 COVID-19 VACCINE (#1) 12/20/1951 HEPATITIS C SCREENING 12/14/1964 DTAP/TDAP/TD VACCINES (1 - Tdap) 1965 PNEUMOCOCCAL VACCINE 50+ (1 of 2 - PCV) 1965 ZOSTER VACCINE (1 of 2) 1965 Respiratory Syncytial Virus (RSV) Vaccine Pt: or over 60 yrs (1 - 1-dose 75+ series) 2021 DEPRESSION SCREENING 07/18/2024 INFLUENZA VACCINE (Season Ended) [...] on patient's age to complete this topic Procedures Procedure Name Priority Date/Time Associated Diagnosis Comments PATHOLOGY TISSUE Routine 12/25/2024 11:1 3 AM CDT Illness, unspecified from Last 3 Months Results * PATHOLOGY TISSUE (12/25/2024 11:13 AM CDT) Case Report Surgical Pathology Report Case: [id number] Authorizing Provider: Rodrigo Garcia Collected: 12/25/2024 11:13 AM MD Ar Ordering Location: [facility] - Received: 12/26/2024 03:47 PM Pathology Lab Pathologist: Cecily Sanchez MD Specimen: Lymph Node Biopsy 12/28/2024 2:03 PM CDT [facility] Final Diagnosis Lymph node, left cervix, core biopsy: CD5 positive mature B-cell lymphoma, most consistent with mantle cell lymphoma. 12/28/2024 2:03 PM CDT [facility] at 1403 CDT Microscopic [...] with a definitive diagnosis. 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 12/28/2024 2:03 PM CDT [facility] Materials Received Received are 3 slide(s) and 1 block(s) labeled [id number] along with a copy of the outside pathology report. [place] [address]. All original materials are returned to the referring institution, along with a copy of our final report. 12/28/2024 2:03 PM CDT [facility] Pathologist Location at [facility] 12/28/2024 2:03 PM CDT [facility] Disclaimer The performance characteristics of all immunohistochemical and indirect immunofluorescence stains (if any) cited in this report were determined by the Histopathology Laboratory of [facility]. Some of these tests were developed by [...] attending (teaching) pathologist. 12/28/2024 2:03 PM CDT [facility] Embedded Images 12/28/2024 2:03 PM CDT [facility] Pathology/Cytolo gy BIOPSY OF LYMPH NODE / Unknown 12/25/2024 11:13 AM CDT 12/26/2024 3:47 PM CDT Rodrigo Garcia MD LAB - PATHOLOGY/CYT OLOGY ORDERABLES Final Result [facility] [address] [facility] [place] [address], [facility] [phone] from Last 3 Months Insurance MEDICARE MEDICARE ANTHEM SELF PAY NO INSURANCE Member Subscriber Plan / Payer (Ef fective for All Dates) Name:Yinka Johnson Member ID:Not on file Relation to Subscriber:Not on file Name:ALEXYINKA Yayo Subscriber ID:Not on file (Home) Address: [address] [place] [id number] Payer ID:Not on file Group ID:Not on file Type:Self Pay Address: [place], [place] Care Teams Jewelry Sorter Relationship Specialty Start Date End Date Odell Walls MD [address] [place] [address] PCP - General 10/12/19
[2025-01-16 07:51] LABS: Estimated Glomerular Filt Rate > 60
== END 2025-01-16 07:31 | disposition home or self-care (01) ==
PROVIDERS: PCP Family Medicine; Visit Provider Internal Medicine Medical Oncology
DX: C83.00 Small cell B-cell lymphoma, unspecified site (principal); N40.0 Benign prostatic hyperplasia without lower urinary tract symptoms; R59.1 Generalized enlarged lymph nodes
CPT/HCPCS: 71260; 74177; Q9967

== ENCOUNTER 2025-03-22 08:59 | Outpatient (CLI) | payer MEDICARE, SELFPAY ==
--- NOTE | ~2025-03-22 | CT_ITS ---
EXAMINATION: CT chest abdomen pelvis w con DATE: 03/22/2025 09:55 INDICATION: Lymphoma restaging. TECHNIQUE: Computed tomography (CT) of the chest, abdomen, and pelvis was performed with 100 mL Omnipaque 350 intravenous contrast. Automated exposure control and iterative reconstruction technique were employed. The dose-length product was 1418.71 mGy-cm. COMPARISON: CT chest, abdomen, and pelvis 01/16/2025 FINDINGS: CHEST CT: There is peripheral septal thickening in the lungs with mild air architectural distortion. A calcified left lung nodule and calcified left hilar lymph nodes are consistent with old granulomatous disease. No bronchiectasis or honeycombing. The heart size is normal. There are coronary artery calcificatio ns. No pericardial effusion. There is a 1.0 x 1.3 cm right paratracheal lymph node, decreased from 2.9 x 2.0 cm. There is mild bilateral gynecomastia. There are bridging endplate osteophytes at multiple levels in the spine, consistent with diffuse idiopathic skeletal hyperostosis (DISH). There is severe cervical spondylosis and moderate thoracic spondylosis. ABDOMEN/PELVIS CT: The liver is normal. There is mild splenomegaly. The gallbladder is normal in size. The pancreas and adrenal glands are normal. There is mild atrophy of right kidney. There is cortical thinning of left kidney. There is a 3 mm stone in right kidney. There is a 5 mm cyst in right kidney. There is a 5 mm cyst in left kidney. The prostate is severely enlarged. There are no dilated loops of bowel. The appendix is normal. There is a 1.2 x 1.6 mm mesenteric lymph node that previously measured 1.8 x 1.2 cm. There is a 1.4 x 1.5 cm left external iliac node, improved from 4.5 x 2.7 cm. There is a right inguinal hernia containing fat. There is severe lumbar spondylosis. IMPRESSION: 1. Mild lymphadenopathy in the chest, abdomen, and pelvis with interval improvement, consistent with lymphoma. 2. Mild splenomegaly. Reviewed, dictated and finalized at location E. IMPRESSION: 1. Mild lymphadenopathy in the chest, abdomen, and pelvis with interval improve ment, consistent with lymphoma. 2. Mild splenomegaly.
--- OUTSIDE RECORDS SUMMARY | 2025-03-22 09:06 | XMS_ITS ---
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 Past Treatment and Therapy Plans Oncology Chemotherapy [...] (RITUXAN) IVPB in 500 mL Provider Discretion Olegario, Saul L., DO 2 of 4 cycles completed
--- OUTSIDE RECORDS SUMMARY | 2025-03-22 09:06 | XMS_ITS | Encounter Summary ---
Author Organization [facility] Address [address] [facility] [place] [address] Care Team Providers Care Tile Fitter Name Role Phone Odell Walls MD Primary Care Provider [phone] Encounter Details Date Type Department Care Team (Late st Contact Info) Description 10/17/2019 Lab Requisition [facility] [address] [place] [address] Daxa Abdullahi MD [facility] [place], [place] [id number] Social History Tobacco Use Types Packs/Day Years [...] 8:30 AM CDT) Client Specimen ID # [id number] 2:31 PM CDT [facility] Number of Slides Received 1 0 2:31 PM CDT [facility] Slide Prep Complete Testing is technical only and does not require an interpretation of results. 0 2:31 PM CDT [facility] at 1428 CDT Comment:All histochemical an d/or immunohistochemical results are interpreted with controls that demonstrate appropriate staining reactions before reporting results. Note on use of immunocytochemistry reagents: This test was developed and its performance characteristic determined by [facility], Department of Laboratory Medicine. It has [...] ORDERAB LES Final Result Performing Organization Address City/State/RUST Co de Phone Number [facility] [address] [place] [address] documented in this encounter Visit Diagnoses Not on filedocumented in this encounter Care Teams Tile Fitter Relationship Specialty Start Date End Date Odell Walls MD [address] [place] [address] PCP - General 10/12/19 documented as of this encounter
--- OUTSIDE RECORDS SUMMARY | 2025-03-22 09:06 | XMS_ITS | Encounter Summary ---
Author Organization [facility] Address [address] [place] [address] Care Team Providers Care Vice President Process Name Role Phone Odell Walls MD Primary Care Provider Encounter Details Date Type Department Care Team (Late st Contact Info) Description 10/12/2019 Lab Requisition [facility] Pathology Lab [address] [place] [address] Daniele Harrison MD [address] [facility] [address] [place] [id number] Illness, unspecified Social History Tobacco Use [...] Report Bone Marrow Patholog y Report Case: [id number] Authorizing Provider: Daniele Harrison MD Collected: 10/11/2019 08:30 AM Ordering Location: [facility] Lab Received: 10/12/2019 02:59 PM Pathologist: Daxa Abdullahi MD Specimens: A) - Bone Marrow Clot, [id number] B) - Bone Marrow Core, AB20-13 C) - Blood Peripheral, AB20-13 D) - Bone Marrow Aspirate, [id number] 10/24/2019 3:15 PM CDT [facility] Final Diagnosis Bone marrow, aspirate, clot section, and core biopsy: - 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 - See description. Peripheral smear: - Wbc count adequate with lymphocytosis - Normocytic anemia - Thrombocytopenia 10/24/2019 3:15 PM CDT [facility] Amendment electronically signed by Daxa [...] characterize this process. 10/24/2019 3:15 PM T [facility] Peripheral Smear Description Manual Differential [...] giant platelets noted 10/24/2019 3:15 PM T [facility] Bone Marrow Aspirate Differential count [...] and inconspicuous nucleoli. 10/24/2019 3:15 PM CDT [facility] Bone Marrow Core Biopsy and [...] are performed on the core in the [facility] Department of Pathology, with appropriately reactive controls, [...] consensus conference with agreement. 10/24/2019 3:15 PM [facility] Clinical History 10/24/2019 3:15 PM [facility] Materials Received Received are 12 slides and 2 blocks labeled as [id number] along with the outside pathology report. [place] [address]. All materials are returned to the referring institution, along with a copy of our final report. 10/24/2019 3:15 PM [facility] Disclaimer The performance characteristics of all immunohistochemical and indirect immunofluorescence stains (if any) cited in this report were determined by the Histopathology Laboratory of [facility]. Some of these tests were developed [...] the attending (teaching) pathologist. 10/24/2019 3:15 PM [facility] Addendum 1 SOX-11 immunostain performed at [facility] is positive in lymphoid infiltrate which demonstrates involvement of bone marrow with B Cell lymphoma favor mantle cell lymphoma. Correlate with molecular and cytogenetic studies. AQ 10/24/2019 3:15 PM CDT [facility] Addendum electronically signed by Daxa Abdullahi MD on 10/19/2019 at 0945 CDT Embedded Images 10/24/2019 3:15 PM CDT [facility] Pathology/Cytology SPECIMEN FROM BONE MARROW [...] PATHOLOGY/CYTOLOGY ORDER MONICO Edited Result - Final [facility] [address] [phone] documented in this encounter Visit Diagnoses Diagnosis Illness, unspecified documented in this encounter Care Teams Vice President Process Relationship Specialty Start Date End Date Odell Walls MD [address] [place] [address] PCP - General 10/12/19 documented as of this encounter
--- OUTSIDE RECORDS SUMMARY | 2025-03-22 09:06 | XMS_ITS | Clinical Summary ---
Author Organization [facility] Address [address] [facility] [place] [address] Care Team Providers Care Real Estate Agency Principal Name Role Phone Odell Walls MD Primary Care Provider [phone] Source Comments [facility] [employer],non-owned Affiliates and Associated Physician Practices is amultiple site organization consisting of ambulatory clinics and hospital sitesin [place], [place], [place] and [place]. This disclosure is being madepursuant to the Care Everywhere program and may not contain all information available regarding this patient. Last updated 18.[facility] [employer] Encounters Date Type Department Care Team Description 12/26/2024 Lab Requisition [facility] - Pathology Lab [address] [place] [address] Rodrigo Garcia MD Illness, unspecified from Last [...] series) 2021 DEPRESSION SCREENING 07/18/2024 INFLUENZA VACCINE (#1) 2025 HEPATITIS B VACCINE Aged Out No [...] CDT) Case Report Surgical Pathology Report Case: [id number] Authorizing Provider: Rodrigo Garcia Collected: 12/25/2024 11:13 AM MD Ar Ordering Location: [facility] - Received: 12/26/2024 03:47 PM Pathology Lab Pathologist: Cecily Sanchez MD Specimen: Lymph Node Biopsy 12/28/2024 2:03 PM CDT [facility] Final Diagnosis Lymph node, left cervix, core biopsy: CD5 positive mature B-cell lymphoma, most consistent with mantle cell lymphoma. 12/28/2024 2:03 PM CDT [facility] at 1403 CDT Microscopic [...] are 3 slide(s) and 1 block(s) labeled [id number] along with a copy of the outside pathology report. [place] [address]. All original materials are returned to the referring institution, along with a copy of our final report. 12/28/2024 2:03 PM CDT [facility] Pathologist Location at [facility] 12/28/2024 2:03 PM CDT [facility] Disclaimer The performance characteristics of all immunohistochemical and indirect immunofluorescence stains (if any) cited in this report were determined by the Histopathology Laboratory of [facility]. Some of these tests were developed [...] LAB Embedded Images 12/28/2024 2:03 PM CDT [facility] Pathology/Cytolo gy BIOPSY OF LYMPH NODE / Unknown 12/25/2024 11:13 AM CDT 12/26/2024 3:47 PM CDT Rodrigo Garcia MD LAB - PATHOLOGY/CYT OLOGY ORDERABLES Final Result [facility] [address] [facility] [place] [address], [facility] [phone] from Last 3 Months Insurance MEDICARE MEDICARE ANTHEM SELF PAY NO INSURANCE Member Subscriber Plan / Payer (Ef fective for All Dates) Name:Yinka Johnson Member ID:Not on file Relation to Subscriber:Not on file Name:ALEXYINKA Yayo Subscriber ID:Not on file (Home) Address: [address] [place] [id number] Payer ID:Not on file Group ID:Not on file Type:Self Pay Address: [place], [place] Care Teams Real Estate Agency Principal Relationship Specialty Start Date End Date Odell Walls MD [address] [place] [address] PCP - General 10/12/19
--- OUTSIDE RECORDS SUMMARY | 2025-03-22 09:06 | XMS_ITS | Encounter Summary ---
Author Organization [facility] Address [address] [place] [address] Care Team Providers Care Order Manager Name Role Phone Odell Walls MD Primary Care Provider [phone] Encounter Details Date Type Department Care Team (Late st Contact Info) Description 12/26/2024 Lab Requisition [facility] - Pathology Lab [address] [place] [phone] Rodrigo Garcia MD [address] [facility] [address] [place] [address] Illness, unspecified Social History Tobacco Use [...] CDT) Case Report Surgical Pathology Report Case: [id number] Authorizing Provider: Rodrigo Garcia Collected: 12/25/2024 11:13 AM MD Ar Ordering Location: [facility] Phys[facility] - Received: 12/26/2024 03:47 PM Pathology Lab Pathologist: Cecily Sanchez MD Specimen: Lymph Node Biopsy 12/28/2024 2:03 PM [facility] Final Diagnosis Lymph node, left cervix, core biopsy: CD5 positive mature B-cell lymphoma, most consistent with mantle cell lymphoma. 12/28/2024 2:03 PM [facility] at 1403 CDT Microscopic Description [...] with a definitive diagnosis. 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 12/28/2024 2:03 PM [facility] Materials Received Received are 3 slide(s) and 1 block(s) labeled [id number] along with a copy of the outside pathology report. [place] [address]. All original materials are returned to the referring institution, along with a copy of our final report. 12/28/2024 2:03 PM [facility] Pathologist Location at [facility] 12/28/2024 2:03 PM [facility] Disclaimer The performance characteristics of all immunohistochemical and indirect immunofluorescence stains (if any) cited in this report were determined by the Histopathology Laboratory of [facility]. Some of these tests were [...] attending (teaching) pathologist. 12/28/2024 2:03 PM CDT [facility] Embedded Images 12/28/2024 2:03 PM CDT [facility] Pathology/Cytolo gy BIOPSY OF LYMPH NODE / Unknown 12/25/2024 11:13 AM CDT 12/26/2024 3:47 PM CDT Rodrigo Garcia MD LAB - PATHOLOGY/CYT OLOGY ORDERABLES Final Result [facility] [address] [phone] documented in this encounter Visit Diagnoses Diagnosis Illness, unspecified documented in this encounter Care Teams Order Manager Relationship Specialty Start Date End Date Odell Walls MD [address] [place], [place] [id number] PCP - General 10/12/19 documented as of this encounter
--- OUTSIDE RECORDS SUMMARY | 2025-03-22 09:06 | XMS_ITS | Clinical Summary ---
Author Organization [facility] Address [address] [place] [id number] Care Team Providers Care Signals Analyst Name Role Phone Saul Melvin DO Unavailable [phone] Nadeem Oglesby DO Primary Care Provider Allergies [...] TK 1 C PO D 09/23/2019 Active simvastatin (ZOCOR) 20 mg tablet TK [...] total) by mouth daily 08/01/2022 Active lisinopriL (PRINIVIL,ZESTRI L) 20 mg tablet Take 1 tablet (20 mg total) by mouth daily 07/27/2022 Active testosterone 12.5 mg/ 1.25 gram (1 %) gel in metered-dose pump APPLY 3 PUMPS ON THE SKIN DAILY 11/03/2022 Active gabapentin (NEURONTIN) 300 mg capsule 10/24/2024 Active acalabrutinib maleate (CALQUENCE) 100 mg tabletIndication s:Lymphoma, small lymphocytic Take 1 tablet (100 mg total) by mouth every 12 (twelve) hours with or without food 60 tablet 5 02/11/2025 Active Active Problems Problem Noted Date Diagnosed Date Pneumonia due to COVID-19 virus 05/30/2021 Lymphoma, 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 at [address] [place] [address] Eileen Peralta, [facility] Lymphoma, small lymphocytic (HCC) (Primary Dx) 01/25/2025 9:30 AM CDT Office Visit [facility] [address] [place] [address] [address] [place] [address] Saul Melvin DO Lymphoma, small lymphocytic (HCC) (Primary Dx) 01/16/2025 - 01/16/2025 11:59 PM CDT Hospital Encounter [facility] Outside Images [address] [place] [address] Discharge Disposition: Discharge to home or self care 01/16/2025 [facility] [address] [place] [address] [address] [place] [address] Nikkie Gonzalez MD from Last 3 Months Immunizations Immunization Administration Dates Next Due Influenza, Unspecified 05/01/2021,04/16/2020, Kyle (J&J) SARS-CoV-2 Vaccination 09/26/2020 Moderna SARS-CoV-2 Monovalen t Vaccination (12+ YRS) 08/22/2021 Pfizer SARS-CoV-2 Monovalent Vaccination (12+ Yrs) PURPLE 01/28/2022 Surgical History Surgery Date Site/Laterality Comments COLONOSCOPY LYMPH NODE BIOPSY 12/16/2024 - 01/14/2025 Left Medical History Medical History Date Comments Sleep [...] on file Legal Sex Male 1:01 AM [employer] Gender Identity Male 02/14/2020 7:13 AM CDT Sexual Orientation Choose not to disclose 2019 9:16 AM CDT Obstetrics History Last Filed Vital Signs Vital Sign Reading Time Taken Comments Blood Pressure 122/70 01/25/2025 9:56 AM CDT Pulse 93 01/25/2025 9:56 AM CDT Temperature 36.8 C (98.3 F) 01/25/2025 9:56 AM CDT Respiratory Rate 17 01/25/2025 9:56 AM CDT Oxygen Saturation 93% 01/25/2025 9:56 AM CDT Inhaled Oxygen Concentration - - Weight 111.4 kg (245 lb 9.5 oz) 01/25/2025 9:56 AM CDT Height 181.9 cm (5' 11.61) 11/23/2024 8:12 AM C DT w shoes Body Mass Index 33.67 11/23/2024 8:12 AM CDT Plan of Treatment Health Maintenance Due Date Last Done Comments Depression Screening 1945 Fall Risk Assessment 1945 DTaP/Tdap/Td Vaccine (1 - Tdap) 1957 Hepatitis B Screening 1964 Pneumococcal vaccine 65+ (1 of 2 - PCV) 1965 Zoster Vaccine (1 of 2) 1965 Well Visit 65+ 12/20/2011 Covid-19 Vaccine (4 - 2024-2 6 season) 2025 01/28/2022, 08/22/2021, 09/26/2020 Influenza Vaccine (#1) 2025 , 04/16/2020, 05/06/2019 Hepatitis C Screening Completed 10/18/2019 Colon Cancer Screening-FIT Discontinued 03/27/2022 Colon Cancer Screening-FOBT Discontinued 03/27/2022 Colorectal Cancer Screening Discontinued Abdominal Aortic Aneurysm (A AA) Screen Completed 01/16/2025, 03/30/2023, 04/06/2022 Colon Cancer Screening-CT Colonography Discontinued Colon Cancer Screening-Colonoscopy Discontinued Colon Cancer Screening-DNA Stool Discontinued Colon Cancer Screening-Sigmoidoscopy Discontinued Procedures Procedure Name Priority Date/Time Associated Diagnosis Comments CMP Routine 03/05/2025 4:09 PM CDT CBC WITH AUTO DIFFERENTIAL Routine 03/05/2025 4:07 PM CDT CREATININE Routine 01/16/2025 12:[address] CHEST ABDOMEN PELVIS W CONTRAST Schedule Routine, Read Routine (OP Routine) 01/16/2025 9:[address] BODY OUTSIDE REFERENCE Routine 01/16/2025 12:00 AM CDT FIT OCCULT BLOOD, FECAL Routine 03/27/2022 8:46 AM CDT HEPATITIS C ANTIBODY Routine 10/18/2019 10:46 AM CDT B-cell lymphoma, unspecified B-cell lymphoma type, unspecified body region (HCC) from Last 3 Months or Most Recently Relevant to Health Maintenance Results * CMP (03/05/2025 4:09 PM CDT) us Historical Provider LAB BLOOD ORDERABLES Ofelia l Result Performing Organization Address City/[facility]/ZIP Co de Phone Number EXTERNAL LAB * CBC with auto differential (03/05/2025 4:07 PM CDT) Blood Result [facility] Historical Provider MD LAB BLOOD ORDERABLES Ofelia l Result * Creatinine (01/16/2025 12:09 PM CDT) Blood Result [facility] Provider Transcribed Order LAB BLOOD ORDERABLES Final Result * CT Chest Abdomen Pelvis W Contrast (01/16/2025 9:09 AM CDT) Anatomical Region Laterality Modality Body N/A Computed Tomogra phy Result [facility] Historical Provider IMG CT PROCEDURES Final R esult * CT Body Outside Reference (01/16/2025 12:00 AM CDT) Narrative [id number] - 01/21/2025 11:32 AM CDT This order has been auto-finalized and does not contain a result. Result [facility] Provider Transcribed Order IMG CT PROCEDURES Fin al Result Performing Organization Address City/[facility] Co de Phone Number [email or web address] * (ABNORMAL) FIT occult blood, fecal (03/27/2022 8:46 AM CDT) [facility] Occult blood, fecal Positive(A ) Negative [facility] - 01 03/27/2022 8:46 AM CDT 03/27/2022 Comment:ST Audra [facility] - 03/29/2022 4:10 PM CDT Performed at: 01 - [facility] [id number] Loom Checker: Jeffery Herman PhD, Phone: [phone] Result [facility] Saul Melvin DO LAB BODY FLUIDS AND STOOLS O RDERABLES Final Result Performing Organization Address City/[facility] Co de Phone Number [facility] - 01 * Hepatitis C antibody (10/18/2019 10:46 AM CDT) Hep C Ab NONREACT NONREACTIVE [facility] Comment: Siemens CentaurXP using BRANDY (chemiluminescent immunoassay) [...] PCR method. Hep C Ab NONREACT NONREACTIVE [facility] Comment: Siemens CentaurXP using BRANDY (chemiluminescent immunoassay) [...] MICROBIOLOGY - GENERAL O RDERABLES Final Result [facility] [address] [place] [address], [facility] [phone] from Last 3 Months or Most Recently Relevant to Health Maintenance Insurance COMMERCIAL GENERIC MEDICARE [employer] MED[employer] [address] MEDICARE SUPPLEMENT [facility] Care Teams Signals Analyst Relationship Specialty Start Date End Date Nadeem Oglesby DO PCP - General Family Medicine 06/25/22 Saul Melvin DO Medical Oncologist/Travel Med Surg Rn Hematology and Oncology 10/12/19
== END 2025-03-22 09:00 | disposition home or self-care (01) ==
PROVIDERS: PCP Family Medicine; Visit Provider Internal Medicine Medical Oncology
DX: C83.00 Small cell B-cell lymphoma, unspecified site (principal); R16.1 Splenomegaly, not elsewhere classified
CPT/HCPCS: 71260; 74177; Q9967

== ENCOUNTER 2025-04-30 10:26 | Outpatient (RCR) | payer MEDICARE, SELFPAY ==
[2025-02-05 19:04] LABS: Hematocrit 42.5 % (42.0-52.0); Hemoglobin 13.2 g/dL (14.0-18.0); Mean Corpuscular HGB Conc 31.1 g/dl (32-36); Mean Corpuscular Hemoglobin 29.7 pg (26-34); Mean Corpuscular Volume 95.5 fl (80-100); Platelet Count Result 149 k/mm3 (150-375); Red Blood Count 4.45 M/mm3 (4.6-6.20); White Blood Count 15.9 K/mm3 (4.5-10.0)
[2025-02-05 19:26] LABS: Alanine Aminotransferase 34 U/L (6-50); Albumin Level 4.0 g/dL (3.5-5.1); Alkaline Phosphatase 92 U/L (38-126); Anion Gap 9 mmol/L (4-12); Aspartate Amino Transferase 64 U/L (17-59); Bilirubin,Total 0.4 mg/dL (0.2-1.3); Blood Urea Nitrogen 15 mg/dL (9-20); Calcium 9.9 mg/dL (8.4-10.2); Carbon Dioxide 29 mmol/L (22-30); Chloride 100 mmol/L (98-107); Estimated Glomerular Filt Rate > 60; Glucose 125 mg/dL (65-110); Potassium 4.8 mmol/L (3.4-5.0); Sodium 138 mmol/L (137-145); Total Protein 6.8 g/dL (6.3-8.2); Uric Acid 4.5 mg/dL (3.5-8.5)
[2025-02-05 19:31] LABS: Band Neutrophils Percent 1 % (0-6); Basophils Absolute Manual 0.00 K/mm3 (0.0-0.1); Basophils Percent Manual 0 % (0-1); Eosinophils Absolute Manual 0.63 K/mm3 (0.02-0.50); Eosinophils Percent Manual 4 % (0-4); Lymphocytes Absolute Manual 10.01 K/mm3 (1.1-4.5); Lymphocytes Percent Manual 63 % (18-44); Monocytes Absolute Manual 0.31 K/mm3 (0.1-0.90); Monocytes Percent Manual 2 % (3-9); Neutrophils Absolute Manual 4.92 K/mm3 (1.3-6.7); Neutrophils Percent Manual 30 % (46-73); Total Cells Counted 100
[2025-02-05 19:32] LABS: Schistocytes None Seen
[2025-03-05 12:56] LABS: Hematocrit 38.0 % (42.0-52.0); Hemoglobin 11.2 g/dL (14.0-18.0); Mean Corpuscular HGB Conc 29.5 g/dl (32-36); Mean Corpuscular Hemoglobin 28.4 pg (26-34); Mean Corpuscular Volume 96.2 fl (80-100); Platelet Count Result 203 k/mm3 (150-375); Red Blood Count 3.95 M/mm3 (4.6-6.20)
[2025-03-05 13:17] LABS: White Blood Count 91.7 K/mm3 (4.5-10.0)
[2025-03-05 13:34] LABS: Alanine Aminotransferase 16 U/L (6-50); Albumin Level 3.9 g/dL (3.5-5.1); Alkaline Phosphatase 87 U/L (38-126); Anion Gap 7 mmol/L (4-12); Aspartate Amino Transferase 80 U/L (17-59); Bilirubin,Total 0.4 mg/dL (0.2-1.3); Blood Urea Nitrogen 15 mg/dL (9-20); Calcium 9.0 mg/dL (8.4-10.2); Carbon Dioxide 27 mmol/L (22-30); Chloride 104 mmol/L (98-107); Estimated Glomerular Filt Rate > 60; Glucose 108 mg/dL (65-110); Potassium 4.4 mmol/L (3.4-5.0); Sodium 138 mmol/L (137-145); Total Protein 7.0 g/dL (6.3-8.2); Uric Acid 5.4 mg/dL (3.5-8.5)
[2025-03-05 13:56] LABS: Band Neutrophils Percent 0 % (0-6); Lymphocytes Absolute Manual 80.69 K/mm3 (1.1-4.5); Lymphocytes Percent Manual 88 % (18-44); Monocytes Absolute Manual 2.75 K/mm3 (0.1-0.90); Monocytes Percent Manual 3 % (3-9); Neutrophils Absolute Manual 8.25 K/mm3 (1.3-6.7); Neutrophils Percent Manual 9 % (46-73); Smudge Cells FEW; Total Cells Counted 100
[2025-03-05 13:57] LABS: Anisocytosis 1+; Burr Cells 1+; Schistocytes None Seen
[2025-04-02 19:35] LABS: Alanine Aminotransferase 13 U/L (6-50); Albumin Level 3.8 g/dL (3.5-5.1); Alkaline Phosphatase 79 U/L (38-126); Anion Gap 9 mmol/L (4-12); Aspartate Amino Transferase 41 U/L (17-59); Bilirubin,Total 0.5 mg/dL (0.2-1.3); Blood Urea Nitrogen 11 mg/dL (9-20); Calcium 8.7 mg/dL (8.4-10.2); Carbon Dioxide 29 mmol/L (22-30); Chloride 99 mmol/L (98-107); Estimated Glomerular Filt Rate > 60; Glucose 65 mg/dL (65-110); Potassium 4.0 mmol/L (3.4-5.0); Sodium 137 mmol/L (137-145); Total Protein 6.4 g/dL (6.3-8.2); Uric Acid 4.8 mg/dL (3.5-8.5)
[2025-04-02 19:40] LABS: Hematocrit 39.6 % (42.0-52.0); Hemoglobin 12.3 g/dL (14.0-18.0); Mean Corpuscular HGB Conc 31.1 g/dl (32-36); Mean Corpuscular Hemoglobin 30.4 pg (26-34); Mean Corpuscular Volume 97.8 fl (80-100); Platelet Count Result 165 k/mm3 (150-375); Red Blood Count 4.05 M/mm3 (4.6-6.20); White Blood Count 13.0 K/mm3 (4.5-10.0)
[2025-04-02 20:10] LABS: Band Neutrophils Percent 1 % (0-6); Lymphocytes Absolute Manual 9.88 K/mm3 (1.1-4.5); Lymphocytes Percent Manual 76 % (18-44); Monocytes Absolute Manual 0.26 K/mm3 (0.1-0.90); Monocytes Percent Manual 2 % (3-9); Neutrophils Absolute Manual 2.86 K/mm3 (1.3-6.7); Neutrophils Percent Manual 21 % (46-73); Smudge Cells FEW; Total Cells Counted 100
[2025-04-02 20:11] LABS: Schistocytes None Seen
[2025-04-30 12:54] LABS: Hematocrit 39.5 % (42.0-52.0); Hemoglobin 12.5 g/dL (14.0-18.0); Immature Granulocyte Percent A 0.4 % (0-0.5); Lymphocytes Absolute Auto 0.76 K/mm3 (0.9-3.2); Mean Corpuscular HGB Conc 31.6 g/dl (32-36); Mean Corpuscular Hemoglobin 30.2 pg (26-34); Mean Corpuscular Volume 95.4 fl (80-100); Nucleated Red Blood Cells Absolute Auto 0.000 K/mm3 (0.0-0.012); Nucleated Red Blood Cells Perc 0.0 % (0.0-0.2); Platelet Count Result 144 k/mm3 (150-375); Red Blood Count 4.14 M/mm3 (4.6-6.20); White Blood Count 2.8 K/mm3 (4.5-10.0)
[2025-04-30 13:09] LABS: Alanine Aminotransferase 18 U/L (6-50); Albumin Level 4.0 g/dL (3.5-5.1); Alkaline Phosphatase 76 U/L (38-126); Anion Gap 7 mmol/L (4-12); Aspartate Amino Transferase 31 U/L (17-59); Bilirubin,Total 0.7 mg/dL (0.2-1.3); Blood Urea Nitrogen 14 mg/dL (9-20); Calcium 9.0 mg/dL (8.4-10.2); Carbon Dioxide 30 mmol/L (22-30); Chloride 99 mmol/L (98-107); Estimated Glomerular Filt Rate > 60; Glucose 93 mg/dL (65-110); Potassium 4.8 mmol/L (3.4-5.0); Sodium 136 mmol/L (137-145); Total Protein 6.4 g/dL (6.3-8.2); Uric Acid 4.5 mg/dL (3.5-8.5)
== END 2025-05-06 23:59 | disposition home or self-care (01) ==
LOC: ANHGOSHLAB 10:26
PROVIDERS: PCP Family Medicine; Visit Provider Internal Medicine Medical Oncology
DX: C83.00 Small cell B-cell lymphoma, unspecified site (principal)
CPT/HCPCS: 36415; 80053; 84550; 85025

== ENCOUNTER 2025-06-21 09:46 | Outpatient (CLI) | payer MEDICARE, SELFPAY ==
--- NOTE | ~2025-06-21 | CT_ITS ---
EXAMINATION: CT chest abdomen pelvis w con DATE: 06/21/2025 10:11 INDICATION: Lymphoma. TECHNIQUE: Computed tomography (CT) of the chest, abdomen, and pelvis was performed with 100 mL Omnipaque 350 intravenous contrast. Automated exposure control and iterative reconstruction technique were employed. The dose-length product was 1413.28 mGy-cm. COMPARISON: CT chest, abdomen, and pelvis 03/22/2025 FINDINGS: CHEST CT: There is mild chronic peripheral septal thickening lungs with mild architectural distortion. Calcified right lung nodules are consistent with old granulomatous disease. No pleural effusion. The heart size is normal. There are coronary artery calcifications. No pericardial effusion. There is mild bilateral gynecomastia. There is mild chronic anterior wedging of multiple vertebral bodies. There is moderate thoracic spondylosis. ABDOMEN/PELVIS CT: The liver, gallbladder, spleen, pancreas, and adrenal glands are normal. There is mild atrophy of right kidney. There is a 3 mm stone in right kidney. There are cysts in the kidneys measuring up to 5 mm on the left. The prostate is moderately enlarged. There is gas in the bladder lumen, likely from recent instrumentation. There is a right inguinal hernia containing fat. There is diverticulosis of the colon without evidence of diverticulitis. The appendix is normal. There are no dilated loops of bowel. There is no ascites. There is a 2.2 x 1.1 cm left external iliac node that previously measured 2.6 x 1.4 cm. There is severe lumbar spondylosis. IMPRESSION: 1. Mildly enlarged left external iliac lymph node with interval improvement, consistent with lymphoma. Reviewed, dictated and finalized at location E. PREAD CUTTER IMPRESSION: 1. Mildly enlarged left external iliac lymph node with interval improvement, co nsistent with lymphoma.
== END 2025-06-21 09:47 | disposition home or self-care (01) ==
PROVIDERS: PCP Family Medicine; Visit Provider Internal Medicine Medical Oncology
DX: C83.00 Small cell B-cell lymphoma, unspecified site (principal)
CPT/HCPCS: 71260; 74177; Q9967